=== PATIENT | male | born 1950 | race Caucasian/White ===

== ENCOUNTER → 2019-07-11 | Outpatient (CLI) | payer OTHER ==
[~2019-07-11] MED LIST: ASPIR 8181 MG PO; CELEXA10 MG PO; EFFIENT10 MG PO; LISINOPRIL20 MG PO; LIVALO1 MG PO; LIVALO2 MG PO; PLAVIX 75 MG TA75 M1 PO
[2019-07-11 07:39] LABS: CALCIUM 9.5 mg/dL (8.5-10.1); CREATININE 1.1 mg/dL (0.7-1.3)
== END ==
LOC: CAT 06:42
PROVIDERS: Internal Medicine
DX: I71.3 Abdominal aortic aneurysm, ruptured (principal); M47.816 Spondylosis without myelopathy or radiculopathy, lumbar region; K57.30 Diverticulosis of large intestine without perforation or abscess without bleeding; K55.1 Chronic vascular disorders of intestine; N40.0 Benign prostatic hyperplasia without lower urinary tract symptoms; I77.1 Stricture of artery

== ENCOUNTER → 2019-08-14 | Outpatient (CLI) | payer OTHER ==
[~2019-08-14] VITALS: Ht 172.7 cm; Wt 88.9 kg
[~2019-08-14] MED LIST changes: +ASA81BEC PO; +CELEXA 20 MG TA20 MG PO; +CO Q-10300 MG PO; +COENZYME Q-10200 MG PO; +LISINOPRIL-HCT1 EAC2 PO; +PLAVIX 75 MG TA75 MG PO; +REPATHA SU140 MG/1 M INJECTION
[2019-08-14 07:29] VITALS: BP 129/72
[2019-08-14 07:39] LABS: HEMATOCRIT 48.3 % (42.0-52.0); HEMOGLOBIN 15.9 gm/dL (14.0-18.0); MCH 31.4 pg (26.0-34.0); RBC 5.08 mil/uL (4.50-6.00); WBC 9.3 thou/uL (4.0-11.0)
[2019-08-14 07:53] LABS: CALCIUM 8.8 mg/dL (8.5-10.1); POTASSIUM 3.8 mmol/L (3.5-5.1)
--- NOTE | 2019-08-14 08:25 | EKG ---
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: Stephany OLWE : 1950 Requested By: Mike Ventura Order Number: [id number] MD: Bernabe Holden Measurements Intervals [place] Rate: 52 P: 46 MS: 146 QRS: -10 QRSD: 114 T: 12 QT: 448 QTc: 417 Interpretive Statements Sinus bradycardia Borderline intraventricular conduction delay Compared to ECG 10/20/2014 06:38:31 No significant change was found Electronically Signed On 08-14-2019 8:25:11 BUS AND RAIL OPERATOR by Bernabe Holden [email or web address] <ELECTRONICALLY SIGNED> By: Bernabe Holden MD, [facility] 08/14/19824 3 3 Bernabe Holden MD, FACC /EPI
== END | disposition home or self-care (01) ==
LOC: CATH 06:58
PROVIDERS: Nuclear Medicine Nuclear Cardiology
DX: I71.4 Abdominal aortic aneurysm, without rupture (principal); I70.1 Atherosclerosis of renal artery; I10 Essential (primary) hypertension; I25.10 Atherosclerotic heart disease of native coronary artery without angina pectoris; E78.00 Pure hypercholesterolemia, unspecified; I73.9 Peripheral vascular disease, unspecified; E78.5 Hyperlipidemia, unspecified; F17.210 Nicotine dependence, cigarettes, uncomplicated; Z98.890 Other specified postprocedural states; Z79.899 Other long term (current) drug therapy; Z79.82 Long term (current) use of aspirin

== ENCOUNTER 2019-08-28 05:59 | Inpatient (IN) | payer OTHER ==
[2019-08-24 14:15] LABS: ABSOLUTE NEUTROPHILS 5.8 thou/uL (1.4-8.2); BASOPHILS 0.8 % (0.0-2.0); EOSINOPHILS 1.7 % (0.0-3.0); HEMATOCRIT 49.6 % (42.0-52.0); HEMOGLOBIN 16.6 gm/dL (14.0-18.0); MCH 31.4 pg (26.0-34.0); MCHC 33.4 g/dL (28.0-37.0); PLATELET COUNT 280 thou/uL (150-400); POLYS 61.5 % (36.0-66.0); RBC 5.28 mil/uL (4.50-6.00); RDW 13.7 % (10.5-14.5); WBC 9.4 thou/uL (4.0-11.0)
[2019-08-24 14:16] LABS: URINE BILIRUBIN NEGATIVE (Negative); URINE BLOOD TRACE (Negative); URINE CLARITY CLEAR; URINE COLOR YELLOW; URINE GLUCOSE-RANDOM* NEGATIVE (Negative); URINE KETONES NEGATIVE (Negative); URINE LEUKOCYTES-REFLEX NEGATIVE (Negative); URINE NITRITE-REFLEX NEGATIVE (Negative); URINE PROTEIN (DIPSTICK) NEGATIVE (Negative); URINE SPECIFIC GRAVITY 1.015 (1.005-1.035); URINE UROBILINOGEN 0.2 E.U./dl (0.2-1.0)
[2019-08-24 14:28] LABS: ALBUMIN 3.5 g/dL (3.4-5.0); CALCIUM 9.4 mg/dL (8.5-10.1); CREATININE 1.4 mg/dL (0.7-1.3); POTASSIUM 4.3 mmol/L (3.5-5.1); TOTAL BILIRUBIN 0.3 mg/dL (<0.1-1.0); TOTAL PROTEIN 7.1 g/dL (6.4-8.2)
[2019-08-24 14:30] LABS: APTT 30.6 Seconds (24.5-32.8); PROTIME 9.8 Seconds (9.3-11.4)
[2019-08-28] VITALS (21 sets, daily range): BP systolic 93–124; BP diastolic 46–77
[~2019-08-28] VITALS: Ht 172.7 cm; Wt 90.3 kg
[~2019-08-28 05:59] MED LIST changes: -ASA81BEC PO
--- NOTE | 2019-08-28 14:00 | NUR ---
Patient admitted to ICU room 246 fro PACU at 1340 post Stent graft implanted for aortic aneurysm and L renal artery stent placement. Bilateral groin sites are soft, no hematoma noted. Attached to monitors. Cardene infusing.
--- NOTE | 2019-08-28 18:00 | NUR ---
Patient progressing towards outcome goals as evident by, feet are warm with cap refill less than 3 seconds, and good sensation. BP remains less than 140 systolic via [place]. Bilateral groin sites remain soft to palpation. Tolerating diet without nausea or emesis. Pain controlled with pain management regime. Romano dc'd but has not voided. Patient and updated as to POC and given reassurance.
--- NOTE | 2019-08-28 22:35 | NUR ---
PATIENT UNABLE TO VOID POST-CATHETER REMOVAL, PATIENT BLADDER SCANNED [address] MEDEL NOTIFIED, NEW ORDERS NOTED.
[2019-08-29] VITALS (9 sets, daily range): BP systolic 103–126; BP diastolic 46–75
[2019-08-29 05:50] LABS: HEMATOCRIT 39.8 % (42.0-52.0); HEMOGLOBIN 13.1 gm/dL (14.0-18.0); MCH 30.7 pg (26.0-34.0); MCHC 32.8 g/dL (28.0-37.0); MCV 93.6 fL (80.0-100.0); RBC 4.26 mil/uL (4.50-6.00); RDW 13.8 % (10.5-14.5); WBC 17.5 thou/uL (4.0-11.0)
[2019-08-29 06:00] LABS: CALCIUM 8.7 mg/dL (8.5-10.1); POTASSIUM 3.6 mmol/L (3.5-5.1)
--- NOTE | 2019-08-29 07:15 | NUR ---
PATIENT ALERT AND ORIENTED X4, PAIN CONTROLLED WITH MEDICATION. OXYGEN WEANED OFF, O2 REMAINED ABOVE 92. RIGHT RADIAL ART LINE INTACT. ABRAMS DISCONTINUED YESTERDAY, PATIENT VOIDING WELL. PATIENT AMBULATED IN ROOM WITH STANDBY ASSISTANCE, NO DISCOMFORT NOTED. CURRENTLY RESTING IN CHAIR, NO SIGNS OF ACUTE DISTRESS NOTED AT THIS TIME. WILL CONTINUE TO MONITOR.
--- NOTE | 2019-08-29 12:12 | NUR ---
PATIENT UP IN THE CHAIR THIS AM, STANDING UP INTERMITTENTLY TO STREACH HIS BACK AND HIPS. MOMO REMOVED NO HEMATOMA NOTED. VOIDING WITHOUT DIFFICULTY. AMBULATED IN THE HALLS WITHOUT DIFFICULTY, STEADY GAIT. AT BEDSIDE, AWAITING DISCHARGE.
[2019-08-29] MEDS ORDERED: ASA81BEC PO (12:37)
--- NOTE | 2019-08-29 14:05 | NUR ---
PATIENT DISCHARGED TO HOME WITH VIA CAR, DISCHARGE INSTRUCTIONS REVIEWED WITH PATIENT AND , QUESTIONS ANSWERED, VERBALIZED UNDERSTANDING.
--- NOTE | 2019-08-30 17:06 | PATH ---
[facility] [address] [place] [address] PATHOLOGY RPT PROCEDURE Name: DAYNE KNIGHT Room #: 246-P [facility] IN M.R.#: [id number] Admission: 08/28/19 Date of : 54 Discharge: 08/29/19 Report #: [id number] Path Case #: [id number] [facility] Accession Number: [id number] . 01 Material submitted: . artery - LEFT FEMORAL ARTERY PLAQUE. Modifiers: left, femoral . 01 Clinical history: . Abdominal aortic aneurysm . 02 Diagnosis: Left femoral artery plaque, removal: - Calcific atherosclerotic fragments compatible with plaque. (IUV/db; 08/30/2019) LBQ 08/30/2019 1519 Local . 02 Electronically signed: . Melinda Sheets MD, Pathologist NPI- [id number] . 01 Gross description: . The specimen is received in formalin, labeled "Dayne Knight, left femoral artery plaque". Received are multiple segments of partially calcified pale nelson tissue measuring 3.2 x 2.1 x 0.7 cm in aggregate dimensions. The specimen is submitted representatively in cassette A1, following light decalcification. (CAA; 08/29/2019) QA/[facility] 08/29/2019 0913 Local . 02 Pathologist provided ICD-10: I70.202 . 02 CPT . 690950 Specimen Comment: A courtesy copy of this report has been sent to [phone] Specimen Comment: [phone], Specimen Comment: Report sent to , and Performed at: [address], [place] [id number] MD Kristian Chatman MD Phone: [phone] Performed at: [address] [id number] MD Melinda Sheets MD Phone: [phone]
--- NOTE | 2019-09-03 07:36 | O ---
[facility] [place] [address] OPERATIVE REPORT Name: OLIVIA RICHMOND Room #: 246-P [facility] IN M.R.#: [id number] Admission: 08/28/19 Attend Phys: Simba Gramajo MD Discharge: 08/29/19 Date of : 54 Report #: [id number] THIS REPORT FOR: //name// CC: Simba Alvarenga DATE OF SERVICE: 08/28/2019 PREOPERATIVE DIAGNOSIS: Abdominal aortic aneurysm. POSTOPERATIVE DIAGNOSIS: Abdominal aortic aneurysm. OPERATION: Stent graft implant with appropriate arteriography and stent implant for left renal artery and left femoral endarterectomy with patch closure. SURGEON: Simba Gramajo MD and Mike Ventura MD BARBER: NICO Martinez. ANESTHESIA: General. INDICATIONS: The patient is a 69-year-old with abdominal aortic aneurysm. The patient has been followed for some time and aneurysm is of size to indicate repair. FINDINGS AND TECHNIQUE: After general anesthesia was established, femoral arteries were exposed on each side. Both femoral arteries were slightly aneurysmal left more so than the right. A 10,000 units of heparin were given on each side, the femoral artery was entered with the Amplatz needle followed by guidewire and 6-Montenegrin sheath. Through the sheath, the long J-wire was placed and over that, the Berenstein catheter was used as an exchange to place the stiff wires. Over the stiff wire, the introducers were placed through femoral cut downs. On the left side, a 12-Montenegrin cut down was performed and on the right side, 16-Montenegrin. Once the introducer was in place through the left side, the visceral catheter was used to identify the lowest, right, renal artery and this was used as our guide for placement. The main body was a 24 x 14 x 16 device and this was placed in good position below the right renal artery. The contralateral limb was deployed and this was cannulated. Good position with the cannula was ascertained using the spin technique with the pigtail catheter. Flush arteriogram was done on the left side and with this information, a 14 x 12 [facility] [address] [place] [address] OPERATIVE REPORT Name: OLIVIA RICHMOND Room #: 246-P [facility] IN M.R.#: [id number] Admission: 08/28/19 Attend Phys: Simba Gramajo MD Discharge: 08/29/19 Date of : 54 Report #: [id number] second component was selected. This was placed to land just above the left hypogastric artery. With the grafts in position, the compliant balloon was used to fully distend all components, particularly at the neck and at the contralateral limb. The balloon was placed in both sides. An arteriogram was done to show good position of the graft. Unfortunately, there appeared to be a small type 1 endoleak. With this information, a decision was made to place an aortic cuff. A 26 aortic cuff was placed to land just below the left renal artery. The cuff landed in such a way to slightly block the left renal artery and decision was made to pass balloon to dilate the orifice and then a short stent was used to stent the left renal artery and this was over distended using a 6 mm balloon. A final arteriogram was taken that showed good position of the abdominal aneurysm component with no evidence of endoleak and good flow into the left renal artery. Satisfied with all of our devices, the dilators were replaced in the sheaths. The sheaths and dilators were removed and then the stiff wire was removed. On the right side, femoral artery was repaired with interrupted Prolene. On the left side, the slightly more aneurysmal femoral artery was full of clot. I was not comfortable blindly closing this vessel and therefore dissection was done to get a bit more length, both proximally and distally and a longitudinal incision was made and a limited femoral endarterectomy was performed. Tacking sutures were placed distally and then the arteriotomy was closed with a thin walled pericardial patch. The artery was flushed with heparinized saline. Flow was reestablished and the Doppler was used to interrogate and this showed good flow. Protamine was given to reverse the heparin. Hemostasis was ascertained in all areas. The wounds were closed in layers. The patient was taken to the recovery area in good condition with palpable dorsalis pedis pulses. All counts reported as correct. <ELECTRONICALLY SIGNED> By: Simba Gramajo MD 09/03/19 0736 1025 1043 Simba Gramajo MD /nt
== END 2019-08-29 14:08 | disposition home or self-care (01) | DRG 269 ==
LOC: TBA 05:59 → ICU 05:59 → OR 11:01 → EDSTATUS 11:03 → PRE 11:05 → OR 12:22 → PRE 12:48 → ICU 13:38 → ENTRNSPT 08-29 13:55 → ICU 08-29 14:08
PROVIDERS: Physician Assistant; ADMIT Surgery Vascular Surgery
PROC: B41D1ZZ Fluoroscopy of Aorta and Bilateral Lower Extremity Arteries using Low Osmolar Contrast (ICD-10-PCS; principal; 2019-08-28)
PROC: B4171ZZ Fluoroscopy of Left Renal Artery using Low Osmolar Contrast (ICD-10-PCS; principal; 2019-08-28)
PROC: 04CL3ZZ Extirpation of Matter from Left Femoral Artery, Percutaneous Approach (ICD-10-PCS; principal; 2019-08-28)
PROC: 047A3DZ Dilation of Left Renal Artery with Intraluminal Device, Percutaneous Approach (ICD-10-PCS; principal; 2019-08-28)
PROC: 04V03DZ Restriction of Abdominal Aorta with Intraluminal Device, Percutaneous Approach (ICD-10-PCS; principal; 2019-08-28)
PROC: 04UL3JZ Supplement Left Femoral Artery with Synthetic Substitute, Percutaneous Approach (ICD-10-PCS; 2019-08-28)
DX: I71.4 Abdominal aortic aneurysm, without rupture (principal); I25.10 Atherosclerotic heart disease of native coronary artery without angina pectoris; I72.2 Aneurysm of renal artery; I10 Essential (primary) hypertension; E78.5 Hyperlipidemia, unspecified; I73.9 Peripheral vascular disease, unspecified; F17.210 Nicotine dependence, cigarettes, uncomplicated; Z79.82 Long term (current) use of aspirin; Z79.899 Other long term (current) drug therapy
CPT/HCPCS: 10078; 47375; 48888; 50010; 50101; 50386; 50455; 51078; 51751; 52279; 54118; 56524; 56526; 56531; 56534; 56668; 56760; 57093; 62110; 62900; 70005

== ENCOUNTER 2019-09-11 14:32 | Inpatient (IN) | payer OTHER ==
[~2019-09-11] VITALS: Ht 172.7 cm; Wt 84.8 kg
[~2019-09-11 14:32] MED LIST changes: +ASA81BEC PO
[2019-09-11 14:39] VITALS: BP 90/57
[2019-09-11 16:16] LABS: HEMATOCRIT 41.8 % (42.0-52.0); HEMOGLOBIN 13.9 gm/dL (14.0-18.0); MCH 30.7 pg (26.0-34.0); MCHC 33.1 g/dL (28.0-37.0); MCV 92.6 fL (80.0-100.0); RBC 4.52 mil/uL (4.50-6.00); RDW 13.8 % (10.5-14.5); WBC 19.5 thou/uL (4.0-11.0)
[2019-09-11 16:19] LABS: CALCIUM 9.6 mg/dL (8.5-10.1); CREATININE 1.3 mg/dL (0.7-1.3); POTASSIUM 3.7 mmol/L (3.5-5.1)
[2019-09-11 16:31] LABS: APTT 31.6 Seconds (24.5-32.8)
[2019-09-11 21:31] LABS: HEMATOCRIT 34.6 % (42.0-52.0); MCH 30.5 pg (26.0-34.0); MCHC 32.2 g/dL (28.0-37.0); MCV 94.8 fL (80.0-100.0); RBC 3.65 mil/uL (4.50-6.00); RDW 13.8 % (10.5-14.5); WBC 25.2 thou/uL (4.0-11.0)
[2019-09-11 21:32] LABS: HEMOGLOBIN 11.2 gm/dL (14.0-18.0)
[2019-09-11 23:10] LABS: HEMATOCRIT 37.3 % (42.0-52.0); HEMOGLOBIN 12.1 gm/dL (14.0-18.0); MCH 30.7 pg (26.0-34.0); MCHC 32.5 g/dL (28.0-37.0); MCV 94.6 fL (80.0-100.0); RBC 3.94 mil/uL (4.50-6.00); RDW 14.1 % (10.5-14.5); WBC 39.6 thou/uL (4.0-11.0)
[2019-09-11 23:21] LABS: CALCIUM 9.5 mg/dL (8.5-10.1); CREATININE 1.9 mg/dL (0.7-1.3); POTASSIUM 4.3 mmol/L (3.5-5.1)
[2019-09-11 23:45] LABS: APTT 27.5 Seconds (24.5-32.8); FIBRINOGEN 386.4 mg/dL (210-360); INR 1.1; PROTIME 10.8 Seconds (9.3-11.4)
[2019-09-12] VITALS (20 sets, daily range): BP systolic 89–153; BP diastolic 43–85
--- NOTE | 2019-09-12 04:14 | NUR ---
Pt c/o CP. He described as chest pressure. Denies of any radiation to any part of his body. Denies of any SOB. He appears to be very anxious during this episode. EKG obtained and showing no s/sx of any RI. Assist him with relaxation technique. at bedside. Notified his nurse regarding of above.
--- NOTE | 2019-09-12 04:14 | NUR ---
Pt c/o mid chest pain. It is associated with anxiety. He described as chest pressure and rate his pain at 3. He denies of any SOA,no radiation, VS and rhythm are stable. EKG obtained ,showing no STEMI. He reported feeling very anxious. Assisting him with relaxation technique. at bedside providing emotional supports. Notified his nurse about my actions regarding of above.
[2019-09-12 05:19] LABS: HEMATOCRIT 33.8 % (42.0-52.0); HEMOGLOBIN 11.2 gm/dL (14.0-18.0); MCH 30.7 pg (26.0-34.0); MCHC 33.2 g/dL (28.0-37.0); MCV 92.4 fL (80.0-100.0); PLATELET COUNT 298 thou/uL (150-400); RBC 3.65 mil/uL (4.50-6.00); RDW 13.8 % (10.5-14.5); WBC 24.8 thou/uL (4.0-11.0)
[2019-09-12 05:34] LABS: CALCIUM 8.4 mg/dL (8.5-10.1); CREATININE 1.7 mg/dL (0.7-1.3); MAGNESIUM 1.7 mg/dL (1.8-2.4); POTASSIUM 3.5 mmol/L (3.5-5.1)
--- NOTE | 2019-09-12 06:00 | NUR ---
PT ARRIVED IN ICU FROM OR AT 0050 THIS MORNING. UPON ARRIVAL, PT DIAPHORETIC AND NAUSEOUS. WAS INFORMED BY COOLER DELIVERER THAT PT WAS JUST GIVEN ZOFRAN. PT C/O OF PAIN IN BACK FROM LYING FLAT ON BACK, AND C/O OF PAIN IN GROIN LATER THIS MORNING. PT GIVEN PAIN MEDICATION AND HAD RELIEF OF PAIN. PT REMAINED NAUSEOUS. ZOFRAN GIVEN AGAIN THIS MORNING, BUT PT REPORTED THAT IT DID NOT HELP HIS NAUSEA. PT ALSO FELT PRESSURE ON HIS BOWELS ALL MORNING AND FREQUENTLY SAT ON THE BEDPAN BUT ONLY HAD A SMALL AMOUNT OF LOOSE STOOLS; PT THINKS HE WILL HAVE MORE SUCCESS SITTING ON A COMMODE. PT BECAME INCREASINGLY ANXIOUS OVER THE COURSE OF THE MORNING AND PT'S BP INCREASED. PAIN MEDICATION WAS GIVEN THAT HELPED RELAX PT SOMEWHAT, BUT BP REMAINED ELEVATED SO CARDENE GTT WAS INITIATED. TWO UNITS OF PLATELETS WERE GIVEN THIS MORNING AND HGB WAS 11.2 THIS MORNING. WILL CONTINUE TO MONITOR.
[2019-09-12 10:13] LABS: ABSOLUTE NEUTROPHILS 22.1 thou/uL (1.4-8.2)
[2019-09-12 10:14] LABS: ANISOCYTOSIS SLIGHT
--- NOTE | 2019-09-12 10:31 | NUR ---
CM ASSESSMENT: CASE OPENED FOR DC PLANNING. CLINICAL INFO REVIEWED. PT IS POD #1 EMERGENCY PSEUDOANEURYSM REPAIR WITH INTERPOSITION GRAFT. PT HAD AAA REPAIR 08/28. PT UP IN CHAIR, ALERT AND ORIENTED X4, SPOUSE AT BEDSIDE. PT IS ALERT ADN ORIENTED. STATES HE IS RETIRED, INDEPENDENT WITH ADLS, USES NO DME AND NO PREVIOUS HH. HAS PCP DR. MAYS. DISCUSSED WITH RAVIN CANO CTS PA THIS AM. ANTICIPATE NO DC NEEDS, BUT ABLE TO ASSIST WITH COORDINATION IF ANY DC NEEDS ARISE.
--- NOTE | 2019-09-12 13:18 | NUR ---
ASSUMED CARE @ 0700 09/12/19, PT ASSESSMENTS AND VSS COMPLETE PER ICU PROTOCOL. PT UP TO THE BEDSIDE COMMODE X 3, THE THIRD TIME UP TO THE BEDSIDE COMMODE, HIS HR WAS IN THE 130'S, SBP IN 150-170, PT HELPED BACK TO BED, HR STILL IN THE 110'S SUSTAINED, SBP 130-150, LOOKING AT TREND HR WAS 60-80 FOR 24 HRS, RAVIN CALLED, NEW ORDERS RECIEVED.
--- NOTE | 2019-09-12 20:20 | NUR ---
Pt care assumed at 1915. Pt restless, c/o of feeling he has too much "fluid" in his stomach. Has been up and down to BSC and on bedpan numerous times today for same c/o. Nurse practioner notified and Reglan IVP ordered q 6 hours. First dose given. Pt moving left arm and dislodged left radial a-line. A-line dc'd at 2000, pressure held x 5 minutes till hemostatsis obtained and small pressure drsg applied.
[2019-09-13] VITALS (15 sets, daily range): BP systolic 109–146; BP diastolic 59–86
[2019-09-13 05:38] LABS: HEMATOCRIT 27.6 % (42.0-52.0); MCH 31.2 pg (26.0-34.0); MCHC 33.4 g/dL (28.0-37.0); MCV 93.4 fL (80.0-100.0); RBC 2.96 mil/uL (4.50-6.00); RDW 13.6 % (10.5-14.5); WBC 22.6 thou/uL (4.0-11.0)
[2019-09-13 05:47] LABS: HEMOGLOBIN 9.2 gm/dL (14.0-18.0)
[2019-09-13 05:50] LABS: MAGNESIUM 1.7 mg/dL (1.8-2.4); POTASSIUM 3.2 mmol/L (3.5-5.1)
[2019-09-13 06:37] LABS: URINE BILIRUBIN NEGATIVE (Negative); URINE BLOOD 2+ (Negative); URINE CLARITY CLEAR; URINE COLOR YELLOW; URINE GLUCOSE-RANDOM* NEGATIVE (Negative); URINE KETONES NEGATIVE (Negative); URINE LEUKOCYTES-REFLEX NEGATIVE (Negative); URINE NITRITE-REFLEX NEGATIVE (Negative); URINE PROTEIN (DIPSTICK) 1+ (Negative); URINE SPECIFIC GRAVITY 1.025 (1.005-1.035); URINE UROBILINOGEN 0.2 E.U./dl (0.2-1.0)
[2019-09-13 06:44] LABS: CASTS None Seen /LPF (None Seen); SQUAMOUS None Seen /LPF (0-3); URINE RBC 0-2 Rare /HPF (0-2)
[2019-09-13 06:45] LABS: AMORPHOUS URATES Moderate /LPF (None Seen); BACTERIA-REFLEX 1-9 Few /HPF (None Seen); URINE WBC-REFLEX 0-5 Rare /HPF (0-5)
--- NOTE | 2019-09-13 07:07 | NUR ---
Pt rested well during night. No further c/o of gastric distress after receiving Reglan IVP. c/o of lower back pain due to bed mattress this a.m. Assisted up to chair for approximately 20 minutes then wanted back to bed. Hydrocodone 1 tab given with adequate pain relief achieved.
--- NOTE | 2019-09-13 10:34 | O ---
[facility] [place] [address] OPERATIVE REPORT Name: OLIVIA RICHMOND Room #: 245-P [facility] IN ..#: [id number] Admission: 09/11/19 Attend Phys: Cong Zamora MD Discharge: Date of : 54 Report #: [id number] THIS REPORT FOR: //name// CC: Cong Alvarenga DATE OF SERVICE: 09/11/2019 PREOPERATIVE DIAGNOSIS: Left femoral artery pseudoaneurysm. POSTOPERATIVE DIAGNOSIS: Left femoral artery pseudoaneurysm. OPERATION: Emergency repair of left femoral artery pseudoaneurysm. SURGEON: Simba Gramajo MD MANAGER SALES AND MARKETING: NICO Martinez ANESTHESIA: General. INDICATIONS: The patient is a 69-year-old who approximately one week ago, had a stent graft implant. Unfortunately, the patient developed a pseudoaneurysm over the weekend. The patient states that he felt a rupture in his groin and this was followed by a large painful swelling. When seen in the Emergency Department, the patient had an obvious pulsatile pseudoaneurysm and this was confirmed by Radiology. FINDINGS AND TECHNIQUE: After general anesthesia was established, an incision was made into the old groin incision and the pseudoaneurysm was entered. Unfortunately, the leak in the artery was much larger than anticipated. The patient previously had stent graft implant but because of severe calcification and femoral aneurysm. I had performed an endarterectomy with localized patch graft. The patch had become disrupted and along the superior lateral edge and this would require a more extensive repair. Direct vascular control was maintained while a counter incision was made above the inguinal ligament. This allowed proximal control of the most distal external iliac artery. The wound was then opened and the superficial femoral artery was exposed and controlled. Attempts were made to expose and control the deep femoral artery, but there was intense scarring related to, I am sure, the aneurysm as well as previous surgery and control of this was obtained with insertion of Fogerty catheters. Once vascular control was obtained, was difficult as it was, a decision was made to place an interposition graft, length of 8 mm Hemashield was selected and [facility] [address] [place] [address] OPERATIVE REPORT Name: OLIVIA RICHMOND Room #: 245-P [facility] IN .R.#: [id number] Admission: 09/11/19 Attend Phys: Cong Zamora MD Discharge: Date of : 54 Report #: [id number] bevelled end-to-end anastomosis was made proximally. The distal end of this was then sewn to include the origin of the deep femoral artery. Before placing the graft distally, a femoral thrombectomy was performed using Katy catheter to remove all clot from the superficial femoral artery. Localized heparin was given into this and systemic heparin had been given when vascular control was obtained. There was good back bleeding from the deep femoral artery, but relatively little from the superficial femoral artery. I felt with several passages of two sizes, a Katy catheter that I had removed most of the clot that was obtainable. When the distal anastomosis was complete, flow was reestablished. Hemostasis was ascertained at both anastomotic sites and when we were satisfied with the graft, then protamine was given to reverse the heparin. The patient was on Plavix and aspirin and there was considerable amount of soft tissue bleeding. This was tedious to address but when hemostasis was satisfactory, a 15 Rafael drain was brought through a separate stab wound and the wound was closed in layers. A wound VAC was applied to the wound externally and to be converted to a Prevena at the time of discharge. The patient tolerated all this well. Cell Saver was used during the operation. A good Doppler signal was obtainable in the feet prior to leaving the operating room and both feet were pink. Femoral pulse was 2+ on the right and 1+ on the left. All counts were reported as correct. <ELECTRONICALLY SIGNED> By: Simba Gramajo MD 09/13/19 1034 1041 1058 Simba Gramajo MD /nt
--- NOTE | 2019-09-13 12:02 | NUR ---
PATIENT ALERT AND ORIENTED, VITALS STABLE, C/O TENDERNESS LEFT GROIN WITH PALPATION. UP TO THE BATHROOM AND SAT IN THE CHAIR FOR A WHILE. TOLERATING DIET W/O NAUSEA. WOUND VAC AND GLENDA DRAIN LEFT GROIN AND DRESSING INTACT. ABRAMS DC'D AND PATIENT ABLE TO VOID. ORDERS RECEIVED TO TRANSFER OUT OF ICU.
--- NOTE | 2019-09-13 15:12 | NUR ---
PATIENT TRANSFERRE TO 207 WITH BELONGINGS, ACCOMPANIED BY SPOUSE.
--- NOTE | 2019-09-13 17:16 | NUR ---
PT CARE ASSUMED APPROX 1515. ASSESSMENT CHARTED. PT DENIES SOA AND PAIN TO LEFT GROIN AT THIS TIME. PT REPORTS PAIN 7/10 TO LOWER BACK. REPORTS ADEQUATE PAIN MANAGEMENT. AT BEDSIDE AND BOTH SHE AND PT DENY DENY QUESTIONS OR CONCERNS REGARDING POC OR TRANSFER. VSS. BS WNL. FALL PRECAUTIONS IN PLACE. NO DISTRESS NOTED.
--- NOTE | 2019-09-14 04:21 | NUR ---
pt alert and oriented. Vitals stable. reports of left groin soreness on palpitation. Wound VACC and GLENDA drain intact. Voiding b urinal. at bedside during yeaterday shift change but denies any concerns. Denies chest pain, no nausea / vomiting reported. pt currently stable. no distress reported. Will continue with current POC.
[2019-09-14 04:30] VITALS: BP 112/69
[2019-09-14 05:19] LABS: ABSOLUTE NEUTROPHILS 14.4 thou/uL (1.4-8.2); BASOPHILS 0.3 % (0.0-2.0); EOSINOPHILS 0.1 % (0.0-3.0); HEMATOCRIT 26.1 % (42.0-52.0); HEMOGLOBIN 8.7 gm/dL (14.0-18.0); LYMPHOCYTES 9.5 % (24.0-44.0); MCHC 33.3 g/dL (28.0-37.0); MCV 92.9 fL (80.0-100.0); MONOCYTES 10.7 % (1.0-8.0); PLATELET COUNT 241 thou/uL (150-400); POLYS 79.4 % (36.0-66.0); RBC 2.81 mil/uL (4.50-6.00); RDW 13.4 % (10.5-14.5); WBC 18.1 thou/uL (4.0-11.0)
[2019-09-14 05:38] LABS: CALCIUM 8.2 mg/dL (8.5-10.1); CREATININE 0.9 mg/dL (0.7-1.3)
[2019-09-14 05:42] LABS: POTASSIUM 2.9 mmol/L (3.5-5.1)
[2019-09-14 07:20] VITALS: BP 128/68
--- NOTE | 2019-09-14 08:31 | NUR ---
ASSUMED CARE OF PT APPOX 0715, NIGHT STAFF STATES PT VERY TIRED. AMB THIS A.M. WITH ASSIST W/SUPPLIES. BM THIS A.M. AND EARLIER IN SHIFT. EVERYTHING INTACT, WOUND VAC, SWELLING LEFT GROIN SCROTUM/DISCOLORATION. OFFERED ICE PACK, DECLINED AT THIS TIME, WANTS TO NAP. SEE SEPARATE INTERVENTIONS FOR ASSESSMENTS, ENCOURAGED PT TO USE CALL LIGHT FOR ANY NEES
[2019-09-14 11:49] VITALS: BP 106/54
[2019-09-14 12:34] LABS: CHOLESTEROL 88 mg/dL (<200); HDL CHOLESTEROL 29 mg/dL (>40); LDL CHOLESTEROL 40 mg/dL (<100); TRIGLYCERIDE 99 mg/dL (<150); VLDL 20 mg/dL (<40)
[2019-09-14 18:19] VITALS: BP 111/58
[2019-09-14 21:02] VITALS: BP 113/60
[2019-09-15 00:33] VITALS: BP 107/56
[2019-09-15 03:25] LABS: HEMATOCRIT 26.1 % (42.0-52.0); HEMOGLOBIN 8.6 gm/dL (14.0-18.0); MCH 30.7 pg (26.0-34.0); RBC 2.81 mil/uL (4.50-6.00); RDW 13.5 % (10.5-14.5); WBC 13.8 thou/uL (4.0-11.0)
[2019-09-15 03:37] LABS: CALCIUM 8.7 mg/dL (8.5-10.1); MAGNESIUM 1.9 mg/dL (1.8-2.4); POTASSIUM 3.4 mmol/L (3.5-5.1)
[2019-09-15 05:05] VITALS: BP 111/60
--- NOTE | 2019-09-15 07:29 | NUR ---
PROGRESS PT A/O X4, UP WITH SBA FOR EQUIPMENT. AMBULATED TO BATHROOM WOUND VAC INTACT RUNNING AT 125 CM SX, GLENDA INTACT DRAINED 50 CC OF DARK BLOODY FLUID. PEDAL PULSES POSITIVE, SENSATION AND MOVEMENT INTACT. VSS, ACCUCHECKS AND SSI INSULIN CONTINUE 93 LAST NIGHT NO SSI REQUIRED. L AND R FOREARM SL FLUSHES WITHOUT DIFFICULTY. LUNGS CLEAR ABDOMEN SOFT WITH ACTIVE BS CONTINUE POC.
[2019-09-15 07:30] VITALS: BP 138/68
[2019-09-15 11:15] VITALS: BP 120/61
--- NOTE | 2019-09-15 14:05 | NUR ---
Case discussed with the care team. No cm interventions indicated at this time. Discharge timeframe is uncertain. CTS and GI are involved.
--- NOTE | 2019-09-15 14:51 | EKG ---
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 Manager: KRISHAN : 1950 Requested By: Nick Pardo Order Number: [id number] MD: Fantasma Curtis Measurements Intervals [place] Rate: 60 P: 44 ME: 144 QRS: -12 QRSD: 111 T: 7 QT: 424 QTc: 424 Interpretive Statements Sinus rhythm Abnormal R-wave progression, early transition Borderline T abnormalities, inferior leads Compared to ECG 08/14/2019 07:24:35 T-wave abnormality now present Sinus bradycardia no longer present Electronically Signed On 09-15-2019 14:50:59 CLINIC COORDINATOR by Fantasma Curtis [email or web address] <ELECTRONICALLY SIGNED> By: Fantasma Curtis MD 09/15/19 1450 20 20 Fantasma Curtis MD /EPI
--- NOTE | 2019-09-15 14:52 | EKG ---
[address] [address] ELECTROCARDIOGRAM REPORT Name: OLIVIA RICHMOND Room #: 207-P [facility] IN M.R.#: [id number] Admission: 09/11/19 Attend Phys: Cong Zamora MD Discharge: Date of : 54 Report #: [id number] THIS REPORT FOR: //name// [facility] Test Date: 2019-09-12 Test Time: 04:08:02 Pat Name: OLIVIA RICHMOND Department: Room: 207 Gender: M Director Pharmacy Services: raimundo : 1950 Requested By: Cogn Zamora Order Number: [id number] MD: Fantasma Curtis Measurements Intervals [place] Rate: 72 P: 62 IA: 142 QRS: 5 QRSD: 111 T: 22 QT: 399 QTc: 437 Interpretive Statements Sinus arrhythmia Abnormal R-wave progression, early transition Compared to ECG 08/14/2019 07:24:35 Sinus bradycardia no longer present Electronically Signed On 09-15-2019 14:51:45 CREASING MACHINE OPERATOR by Fantasma Curtis [email or web address] <ELECTRONICALLY SIGNED> By: Fantasma Curtis MD 09/15/19 1451 0408 0408 Fantasma Curtis MD /CLARA
[2019-09-15 15:30] VITALS: BP 106/55
--- NOTE | 2019-09-15 18:23 | NUR ---
ASSUMMED PT CARE AT APPROXIMATELY 0700. PT A&O X4. ASSESSMENT CHARTED. FALL PRECAUTIONS IN PLACE. PT DENIES HAVING CHEST PAIN. PT DENIES HAVING SOB. PT STATED HE HAD CHRONIC BACK PAIN. PT RECEIVED ANALGESICS. PT STATED ANALGESICS HELPED RELEIVE PAIN. PT STATED HE WAS HAVING DIFFICULTY HAVING BM. DURING ASSESMENT, I OBSERVED THAT PT'S ABDOMEN IS DISTENDED. NOTIFIED NICO ALICIA THAT PT'S WAS WEAK WHEN AMBULATING, AND THAT IS ABDOMEN IS DISTENDED. PA IMPLEMENTED NEW ORDERS. RESULTS SHOWED PT HAS AN ILEUS. PA ORDERED NEW ORDERS. IMPLEMENTED NEW ORDERS. DR. MEDEL STATED HE DID NOT WANT TO PROGRESS C INSERTING NG TUBE DUE TO PT'S NOSE STARTING TO BLEED. DR. MEDEL STATED TO "HOLD OFF" ON STARTING THE NG TUBE. DR. MEDEL STATED TO ORDER NEW NG TUBES IF NEEDED TO INSERT AT A DIFFERENT TIME. NG TUBES WERE ORDERED AND THEY ARE ON THE UNIT. PT AND PT'S FAMILY EDUCATED ABOUT POC. PT AND PT'S FAMILY STATED UNDERSTANDING AND DENIED HAVING FURTHER QUESTIONS. PT COMFORTABLE IN BED. PT DENIES HAVING FURTHER CONCERNS. WOUND VAC DRESSING C/D/I. GLENDA DRAIN INTACT.
[2019-09-15 21:36] VITALS: BP 111/44
[2019-09-16 05:00] LABS: CALCIUM 7.8 mg/dL (8.5-10.1); POTASSIUM 3.5 mmol/L (3.5-5.1)
[2019-09-16 05:12] VITALS: BP 119/63
[2019-09-16 07:20] VITALS: BP 142/72
--- NOTE | 2019-09-16 11:49 | NUR ---
SLOW MENTATION EARLY THIS A.M., AAOX4 NOW. HAS STARTED STOOLING, LIQUID, ABD SOUNDS STILL SLUGGISH. NG TO LIS, WOUND VAC INTACT. SR PER TELE. CALLS APPROPRIATELY FOR ASSIST. STILL, FALL PRECAUTIONS IN PLACE. WILL CONTINUE TO MONITOR CLOSELY.
[2019-09-16 12:00] VITALS: BP 107/53
[2019-09-16 15:31] VITALS: BP 107/64
--- NOTE | 2019-09-16 15:53 | NUR ---
AMBULATED IN AWAD WITH PT. UP TO CHAIR. NG CLAMPED. GIVEN 120ML SPRITE TO SIP. WILL CONTINUE TO MONITOR.
[2019-09-16 19:42] VITALS: BP 122/65
--- NOTE | 2019-09-16 22:55 | NUR ---
ASSUMED CARE OF PT AT 1900HRS. PT IS AOX4 WITH SOME CONFUSION. FALL PRECAUTION IN PLACE. FAMILY WAS AT BEDSIDE MOST OF THE TIMR. NG TUBE CLAMPED. PT IS TOLERATING PO LIQUIDS AND PILLS. PT HAD LOOSE BM THIS SHIFT. NO COMPLAINTS OF NAUSEA. PT REPORTED PAIN AND WAS TREATED WITH PRN PAIN MEDS. PT WAS ABLE TO GET COMFORTABLE AND SLEEP PART OF THE SHIFT. VSS AND NO S/S OF ACUTE DISTRESS. REPORTED OFF TO JAIME FOR THE REMAINDER OF THE SHIFT.
[2019-09-17 04:30] LABS: HEMATOCRIT 23.1 % (42.0-52.0); HEMOGLOBIN 7.5 gm/dL (14.0-18.0); MCH 30.2 pg (26.0-34.0); MCHC 32.5 g/dL (28.0-37.0); MCV 92.9 fL (80.0-100.0); RBC 2.49 mil/uL (4.50-6.00); RDW 13.4 % (10.5-14.5); WBC 21.4 thou/uL (4.0-11.0)
[2019-09-17 04:52] LABS: CALCIUM 7.8 mg/dL (8.5-10.1); CREATININE 1.1 mg/dL (0.7-1.3); MAGNESIUM 2.2 mg/dL (1.8-2.4); POTASSIUM 3.1 mmol/L (3.5-5.1)
[2019-09-17 05:09] VITALS: BP 94/61
--- NOTE | 2019-09-17 06:56 | NUR ---
REPORT RECEIVED FROM JOVON RN.ASSUMED CARE AT 2300.ALERT,FORGETFUL.NGT CLAMPED.ABLE TO SWALLOW PILLS.VOIDED.BM X 1 MONITOR SHOWS SR,ST.POC CONTINUED.
[2019-09-17 07:00] VITALS: BP 96/58
--- NOTE | 2019-09-17 08:00 | NUR ---
ASSUMED CARE OF PT APPROX 0715, A&0X4, CAN BE SLIGHTLY FORGETFUL, WILL AMB IN HALLS WITH HIM LATER IN SHIFT; HE EXPRESSED APPRECIATION; BORED, STATES HE FEELS LIKE HE'S BEEN IN BED TOO LONG AND THAT'S HIS ONLY PAIN AT THIS TIME. NO OUTPUT WHEN SURGEON ASPIRATED NG, NONE NOTED IN WOUND VAC. SURGEON REDRESSED L GROIN SITE. COMM W/PHYSICIAN CLARIFYIN DIET ORDER, NPO IN ORDERS, REPORTED OFF CLEAR LIQ. PT HUNGRY AND THIRSY. SEE SEPARATE INTERVENTIONS FOR ASSESSMENTS, WILL CONTINUE TO MONITOR. ENCOURAGED PT TO USE CALL LIGHT FOR ANY NEEDS
[2019-09-17 10:30] VITALS: BP 98/52
[2019-09-17 15:40] VITALS: BP 102/49
[2019-09-17 20:15] VITALS: BP 95/58
[2019-09-18 04:34] LABS: CALCIUM 7.7 mg/dL (8.5-10.1); MAGNESIUM 2.1 mg/dL (1.8-2.4); POTASSIUM 3.5 mmol/L (3.5-5.1)
[2019-09-18 04:55] LABS: HEMATOCRIT 22.7 % (42.0-52.0); HEMOGLOBIN 7.4 gm/dL (14.0-18.0); MCH 30.3 pg (26.0-34.0); MCHC 32.8 g/dL (28.0-37.0); MCV 92.3 fL (80.0-100.0); RBC 2.46 mil/uL (4.50-6.00); RDW 13.7 % (10.5-14.5); WBC 15.9 thou/uL (4.0-11.0)
--- NOTE | 2019-09-18 05:27 | NUR ---
ASSUMED PT CARE AT 1900. NO SIGN OF DISTRESS NOTED. PT IS ALERT AND ORIENTED WITH FORGETFUL. SPOUSE AT BEDSIDE. DENIES ANY NEED. FALL PRECAUTION IN PLACE. ASSESSMENT COMPLETED AND DOCUMENTED. SCHEDULED MEDS ADMINISTERED TO PT. CONTINUE TO MONITOR PT. DENIES ANY FURTHER NEEDS AT THIS TIME.
[2019-09-18 05:29] VITALS: BP 110/65
[2019-09-18 07:19] VITALS: BP 119/73
[2019-09-18 11:36] VITALS: BP 86/49
--- NOTE | 2019-09-18 11:38 | NUR ---
Assess due to length of stay. Admit with need for emergent surgical intervention for femoral artery pseudoaneurysm. Also with post op ileus which is resolving and pt slowly starting to eat again. Mild 4 lb wt decrease from a reported usual of 190. Low nutrition risk.
--- NOTE | 2019-09-18 16:56 | NUR ---
Met with patient and . Discussed post acute care for patient. agreeable patient needs post acute care. She reports he appears weak. 5N evaled and accepting. Possible 5N transfer in am
[2019-09-18 17:09] VITALS: BP 119/58
--- NOTE | 2019-09-18 19:56 | NUR ---
PROGRESSING TOWARDS GOALS. LIKELY TO MOVE TO 5NORHT TOMORROW. LEFT GROIN SITE WITH WOUND VAC IN PLACE. PAIN TREATED WITH MEDICATIONS. CALLS FOR ASSISTANCE.
[2019-09-18 20:35] VITALS: BP 102/63
[2019-09-19 04:15] VITALS: BP 106/46
[2019-09-19 05:52] LABS: HEMATOCRIT 22.7 % (42.0-52.0); HEMOGLOBIN 7.5 gm/dL (14.0-18.0); MCH 30.3 pg (26.0-34.0); MCHC 32.9 g/dL (28.0-37.0); MCV 92.1 fL (80.0-100.0); RBC 2.46 mil/uL (4.50-6.00); WBC 17.8 thou/uL (4.0-11.0)
[2019-09-19 06:08] LABS: CALCIUM 7.7 mg/dL (8.5-10.1); MAGNESIUM 1.9 mg/dL (1.8-2.4); POTASSIUM 3.2 mmol/L (3.5-5.1)
--- NOTE | 2019-09-19 08:07 | NUR ---
PT STILL C/O ABD. DISTENTION, FREQUENT GAS, AND LIQUID STOOLS, PRN PAIN MED GIVEN FOR C/O L ANKLE AND HEEL PAIN, FEET ELEVATED ON PILLOWS, SCDS ON, USING CALL FOR ASSIST, 5N CONSULT, PT AND OT ORDERED, TOLERATING REG DIET , VSS,SR ST WITH PVC AND SHORT RUNS VT WILL CON'T TO MONITOR PER PPOC.
--- NOTE | 2019-09-19 08:13 | NUR ---
PT RESTING QUIETLY IN ROOM, USES CALL LIGHT FOR ASSIST, PRN PAIN MED GIVEN AT HS FOR CHRONIC BACK AND SHOULDER, ASSISTS WITH TURNS, VSS, WILL CON'T TO MONITOR.
[2019-09-19 08:28] VITALS: BP 99/61
[2019-09-19 11:22] VITALS: BP 91/52
--- NOTE | 2019-09-19 13:17 | NUR ---
tenative plan for dc to 5N in am. updated 5N liagus. Call [phone] 5n unit if dc tomorrow.
--- NOTE | 2019-09-19 16:12 | NUR ---
SLOW MENTATION. LETHARGIC. MULTIPLE CONSULTS AND TESTS. LEFT LEG SUSPICIOUS FOR DVT. STOOL FOR OCCULT BLOOD POSITIVE. SR/ST PER TELE. AT BEDSIDE. HAS SPENT MUCH OF THE DAY IN BEDSIDE CHAIR WITH LEGS ELEVATED. FALL PRECAUTIONS IN PLACE. WILL CONTINUE TO FOLLOW CLOSELY.
[2019-09-19 17:07] VITALS: BP 127/69
[2019-09-19 17:49] VITALS: BP 101/52
[2019-09-19 19:59] VITALS: BP 101/62
[2019-09-20 04:39] VITALS: BP 110/51
--- NOTE | 2019-09-20 04:40 | NUR ---
PT LETHARGIC, SLOW AND DELIBERATE RESPONSES, PRN PAIN MED GIVEN FOR DISCOMFORT ASSISTED UP TO BR WITH GB AND WALKER, LIMPING ON LEFT FOOT THAT IS TENDER, NEGATIVE FOR PE, VSS, LABS DRAWN, SLEEPING QUIETLY IN ROOM WILL CON'T TO MONITOR PER PPOC.
[2019-09-20 05:36] LABS: HEMATOCRIT 24.2 % (42.0-52.0); HEMOGLOBIN 7.9 gm/dL (14.0-18.0); MCH 29.9 pg (26.0-34.0); MCHC 32.6 g/dL (28.0-37.0); RBC 2.63 mil/uL (4.50-6.00); RDW 13.7 % (10.5-14.5); WBC 17.6 thou/uL (4.0-11.0)
[2019-09-20 05:56] LABS: CALCIUM 7.9 mg/dL (8.5-10.1); CREATININE 1.1 mg/dL (0.7-1.3); MAGNESIUM 2.1 mg/dL (1.8-2.4); POTASSIUM 3.3 mmol/L (3.5-5.1)
[2019-09-20 07:45] VITALS: BP 101/51
[2019-09-20 16:20] VITALS: BP 99/50
[2019-09-20 18:30] LABS: POTASSIUM 3.6 mmol/L (3.5-5.1)
--- NOTE | 2019-09-20 18:41 | NUR ---
ASSUMED CARE 0700, ORIENTED X4, STATES HE IS TIRED AND SLEEPY, DOES WAKEN EASILY, LEFT FOOT AND ANKLE PAIN WITH SWELLING, ENCOUARGE ELEVATION OF FOOT. ORDERS FOR PRAVO BOOT PLACED WITH CENTRAL SUPPLY. TREATED LEFT ANKLE PAIN WITH MEDS. MEAL IN TAKE IMPROVING. GREATER THAN 50% EACH MEAL. ENCOURGED FLUIDS. NPO MIDNIGHT FOR EGD TOMORROW PER GI. BM TODAY WITH REPORT OF SOFT FORMED. UP WITH ASSISTANCE X1. BEDSIDE AT THIS TIME. CALL LIGHT IN REACH.
[2019-09-20 20:15] VITALS: BP 93/49
--- NOTE | 2019-09-20 23:13 | HC ---
[facility] [place] [address] CONSULTATION Name: OLIVIA RICHMOND Room #: 207-P [facility] IN ..#: [id number] Admission: 09/11/19 Attend Phys: Cong Zamora MD Discharge: Date of : 54 Report #: [id number] THIS REPORT FOR: //name// CC: VALENTINE Alvarenga GASTROENTEROLOGY CONSULTATION REASON FOR CONSULTATION: The patient is a 69-year-old male with drop in hemoglobin, Hemoccult-positive stools. HISTORY OF PRESENT ILLNESS: The patient's major health issue has been vasculopathy. He has had a number of stents placed in his lower extremities and also coiling of an aneurysm. On 08/28, he underwent a stent graft placement for abdominal aortic aneurysm as well as left renal artery stenting. He has had a difficult postoperative course. He represented on 09/11 and was found to have a pseudoaneurysm, requiring further surgical intervention. Apparently, that was a fairly bloody procedure. It is noted that prior to these interventions, on 08/29 he had hemoglobin of 13.1; when he came for the second admission on the , it was 12.1; it has dropped since then, is now down to 7.5. He has not had any grossly bloody or black stools. Stools have been liquid and yellow recently. However, they are Hemoccult positive. The patient tolerated apparently had an ileus following his procedure. An NG tube was replaced. According to his , a small amount of brownish material was obtained from the stomach with NG suctioning. There is no prior history of ulcer disease. There has been no vomiting or hematemesis. He has never had an upper endoscopy. He denies any solid food dysphagia. Other than a baby aspirin, he did not use nonsteroidals as an outpatient. He has denied reflux symptoms, but he does report that he would take at least 1 Tums weekly. He has never had an upper endoscopy. He did have a colonoscopy within the past 1 [address] Poncho Giordano at [facility]. According to his , he has now had 2 "clean" colonoscopies. Also, there is no prior history of ulcer disease. PAST MEDICAL HISTORY: He has multiple comorbidities. He has been a long-term cigarette smoker and stopped just prior to his first surgery. He has had abdominal aortic aneurysm, also left renal artery disease requiring stenting. He has had stents in his lower extremities and coiling of aneurysm in his extremities. His believes that he has 1 stent in his heart. He also has elevated lipids and high blood pressure. He has been treated for depression. He has had elevated cholesterol. ALLERGIES: No known drug allergies. [address] [address] CONSULTATION Name: OLIVIA RICHMOND Room #: 207-P [facility] IN ..#: [id number] Admission: 09/11/19 Attend Phys: Cong Zamora MD Discharge: Date of : 54 Report #: [id number] CURRENT MEDICATIONS: Here in the hospital includes potassium, spironolactone, Plavix, atorvastatin, aspirin, metoprolol, famotidine, insulin p.r.n., simethicone, MiraLax, ondansetron glucose, calcium carbonate, bisacodyl, acetaminophen. FAMILY HISTORY: Colon cancer and ulcer disease. SOCIAL HISTORY: , smoked up until earlier this month. He does not drink much alcohol. REVIEW OF SYSTEMS: GENERAL: He has lost weight with his recent illness. No fever, chills or loss of consciousness. HEENT: No change in vision, hearing or sores in the mouth. PULMONARY: Chronic cigarette smoker. No cough, pneumonia or tuberculosis. CARDIOVASCULAR: Apparently, he has a coronary stent. He also has peripheral vascular disease, has multiple stents and grafts placed. GASTROINTESTINAL: Some nausea. No vomiting, no hematemesis. Colonoscopy in the past 1 to 2 years negative per his report. GENITOURINARY: Renal artery stenosis. He also has an enlarged prostate. MUSCULOSKELETAL: No arthralgias or myalgias. SKIN: Without rashes. PSYCHIATRIC: He has been treated for depression, possibly anxiety. HEMATOLOGIC: No previous problems with anemia or bleeding. No known cancers. PHYSICAL EXAMINATION: GENERAL: The patient is a well-developed, chronically ill-appearing male who appears to be fatigued, in no acute distress. VITAL SIGNS: Blood pressure 91/52. HEENT: Anicteric. Pupils equal, round. Oropharynx clear. NECK: Supple. CHEST: Clear. HEART: Irregular rate and rhythm. Normal S1, S2. A 2/6 systolic murmur. ABDOMEN: Somewhat full, but soft good. Normal bowel sounds, nontender without hepatosplenomegaly or masses. RECTAL: Not done at this time. EXTREMITIES: Without cyanosis, clubbing or edema. NEUROLOGICAL: Oriented to person, place and time. Moves all 4 extremities well. LABORATORY DATA: Hemoglobin as noted above, white count of 17,800. INR 1.1. Sodium 134, potassium 3.2. LFTs are unremarkable. ASSESSMENT: 1. Progressive anemia. [facility] [address] [place] [address] CONSULTATION Name: OLIVIA RICHMOND Room #: 207-P [facility]#: [id number] Admission: 09/11/19 Attend Phys: Cong Zamora MD Discharge: Date of : 54 Report #: [id number] 2. Hemoccult-positive stools. 3. Recent aortic stent graft placement with subsequent pseudoaneurysm, requiring surgical repair. 4. High blood pressure. 5. Coronary artery disease with single coronary stent. 6. Intermittent heartburn. 7. Use of aspirin. COMMENT: Discussed with the patient and his . They report he has had 2 colonoscopies, both recent in the past 1 to 2 years. I am not sure we need to look at his colon at this point in time. However, he did have brownish liquid from his NG tube. Although much of his anemia is likely related to blood loss and his acute illness, need to consider the possibility of peptic mucosal disease contributing to his anemia. RECOMMENDATIONS: 1. Agree with famotidine for now. 2. Upper endoscopy probably on 09/21. 3. Monitor hemoglobin. 4. Follow up KUB regarding ileus. <ELECTRONICALLY SIGNED> By: Valentine Wiggins MD 09/20/19 2313 [id number] Valentine Wiggins MD /nt
[2019-09-21 00:18] VITALS: BP 102/59
[2019-09-21 04:45] VITALS: BP 118/59
--- NOTE | 2019-09-21 05:06 | NUR ---
PT A&O X4 ABLE TO MAKE NEEDS KNOWN. DENIES PAIN. ASSIST X1 WITH TRANSFERS. PT HAS A WOUND VAC TO L GROIN. PT NPO SINCE MIDNIGHT FOR EGD IN THE MORNING.
[2019-09-21 05:13] LABS: HEMATOCRIT 22.3 % (42.0-52.0); HEMOGLOBIN 7.3 gm/dL (14.0-18.0); MCH 29.9 pg (26.0-34.0); MCHC 32.5 g/dL (28.0-37.0); RBC 2.43 mil/uL (4.50-6.00); RDW 14.2 % (10.5-14.5); WBC 13.7 thou/uL (4.0-11.0)
[2019-09-21 05:29] LABS: CALCIUM 7.5 mg/dL (8.5-10.1); CREATININE 0.9 mg/dL (0.7-1.3); MAGNESIUM 1.9 mg/dL (1.8-2.4); POTASSIUM 3.4 mmol/L (3.5-5.1)
[2019-09-21 07:34] VITALS: BP 116/65
[2019-09-21 11:00] VITALS: BP 111/55
--- NOTE | 2019-09-21 12:24 | NUR ---
Pt has been cleared for dc to 5N acute rehab today. They have a bed for him and can admit this afternoon. Pt is agreeable. Care team updated.
[2019-09-21] MEDS ORDERED: SPIRONOLACTONE25 M1 PO (13:22)
[2019-09-21] MEDS ORDERED: PEPCID20 MG PO (13:23)
--- NOTE | 2019-09-21 13:53 | NUR ---
ASSUMED CARE 0700. EGD COMPLETED WITH NO INTERVENTIONS. SWELLING IN LEFT LE 2+ PRAVO BOOTS TOLERATED. DISCHARGING TO [address] [place] [address] TODAY.
--- NOTE | 2019-09-22 11:11 | HC ---
[facility] [place] [address] CONSULTATION Name: OLIVIA RICHMOND Room #: 207-P [facility]#: [id number] Admission: 09/11/19 Attend Phys: Cong Zamora MD Discharge: 09/21/19 Date of : 54 Report #: [id number] THIS REPORT FOR: //name// CC: Cong Alvarenga DATE OF SERVICE: 09/18/2019 HISTORY OF PRESENT ILLNESS: The patient is a 69-year-old white male with history of coronary artery disease, underwent prior cardiac stents, who also has peripheral arterial disease with prior stenting. He was admitted this time with a left femoral artery pseudoaneurysm and underwent emergent repair 09/11/2019. His course postoperatively has been complicated by postoperative ileus for which he needed an NG tube as well as acute renal insufficiency. He also had leukocytosis. He was tried on clear liquid diet with gradual improvement regarding postoperative ileus. He does have medical complexity with generalized debilitation. We are seeing him in rehabilitation medicine consultation. He has a portable Prevena device in place for dressing of the left groin. PAST MEDICAL HISTORY: Hyperlipidemia, hypertension, peripheral vascular disease with bilateral stents, anal fistula repair, depression and colonoscopy. MEDICATIONS: Please see the full medication listing. ALLERGIES: No known drug allergies. HABITS: Former tobacco smoker of cigarettes 1 pack per day for 45 years, quit less than or equal to a year ago. REVIEW OF SYSTEMS: No current complaints of chest pain, shortness of breath or abdominal discomfort. PHYSICAL EXAMINATION: GENERAL: A 69-year-old white male in no obvious distress. VITAL SIGNS: Last recorded temperature 98.1, pulse 75, respirations 16, and blood pressure is 86/49. The patient is alert. HEENT: Appeared to be benign. NEUROLOGIC: Cranial nerves are grossly intact. Facies are symmetric. EXTREMITIES: Functional range of motion of both upper extremities with strength grade 4-/5. DTRs are trace to 1. Lower extremities: He does have significant scrotal edema with some ecchymosis. He has the left groin with the dressing in place. There is no focal calf swelling. He can dorsiflex the left ankle. Strength is probably a grade 4-/5, right lower extremity reveals functional range of motion strength is probably a grade 4-/5. He is sit to stand, min assist. Gait was 75 feet min assist noted to be unsteady. As far as occupational therapy, he has difficulty with ADLs and was unable to don his left sock. [address] [address] CONSULTATION Name: OLIVIA RICHMOND Room #: 207-P [facility]#: [id number] Admission: 09/11/19 Attend Phys: Cong Zamora MD Discharge: 09/21/19 Date of : 54 Report #: [id number] ASSESSMENT: A 69-year-old white male with the following problems: 1. Medical complex with generalized debilitation. 2. Left femoral artery pseudoaneurysm, status post emergent repair 09/11/2019. 3. Postoperative ileus, warranting an NG tube, has been advanced as far as clear liquids. 4. Acute renal insufficiency. 5. Leukocytosis. 6. Prior abdominal aortic aneurysm with stent graft implant. 7. Coronary artery disease. 8. Hypertension. PLAN: The patient is a candidate for a short acute in-hospital inpatient rehabilitation stay. We will be checking into rehab options and looking at the [address] [place] [address] rehab ivan, pending bed availability. Thank you for asking us to assist in this patient's care. <ELECTRONICALLY SIGNED> By: Mike Garvey MD 09/22/19 1111 1425 1556 Mike Garvey MD /nt
== END 2019-09-21 15:19 | DRG 252 ==
LOC: ER 14:32 → 2N 16:40 → ICU 16:40 → EROBS 16:40 → ICU 09-12 01:07 → 2N 09-13 14:57
PROVIDERS: Anesthesiology; Emergency Medicine; Internal Medicine; Nurse Practitioner; Nurse Practitioner Acute Care; Physician Assistant; Surgery Vascular Surgery; ADMIT Hospitalist
PROC: 04CL0ZZ Extirpation of Matter from Left Femoral Artery, Open Approach (ICD-10-PCS; principal; 2019-09-11)
PROC: 30233K1 Transfusion of Nonautologous Frozen Plasma into Peripheral Vein, Percutaneous Approach (ICD-10-PCS; principal; 2019-09-11)
PROC: 04UL0JZ Supplement Left Femoral Artery with Synthetic Substitute, Open Approach (ICD-10-PCS; principal; 2019-09-11)
PROC: 30233R1 Transfusion of Nonautologous Platelets into Peripheral Vein, Percutaneous Approach (ICD-10-PCS; 2019-09-12)
PROC: 0DJ08ZZ Inspection of Upper Intestinal Tract, Via Natural or Artificial Opening Endoscopic (ICD-10-PCS; 2019-09-21)
DX: T81.718A Complication of other artery following a procedure, not elsewhere classified, initial encounter (principal); N17.0 Acute kidney failure with tubular necrosis; K56.7 Ileus, unspecified; I10 Essential (primary) hypertension; E78.5 Hyperlipidemia, unspecified; I73.9 Peripheral vascular disease, unspecified; F32.9 Major depressive disorder, single episode, unspecified; D72.829 Elevated white blood cell count, unspecified; I25.10 Atherosclerotic heart disease of native coronary artery without angina pectoris; F41.9 Anxiety disorder, unspecified; D64.9 Anemia, unspecified; K26.9 Duodenal ulcer, unspecified as acute or chronic, without hemorrhage or perforation; R12 Heartburn; R63.4 Abnormal weight loss; I71.4 Abdominal aortic aneurysm, without rupture; E87.6 Hypokalemia; Z95.5 Presence of coronary angioplasty implant and graft; Z87.891 Personal history of nicotine dependence; Z95.820 Peripheral vascular angioplasty status with implants and grafts; Z68.28 Body mass index [BMI] 28.0-28.9, adult; Z71.6 Tobacco abuse counseling; Z79.82 Long term (current) use of aspirin; Z79.899 Other long term (current) drug therapy; Y83.8 Other surgical procedures as the cause of abnormal reaction of the patient, or of later complication, without mention of misadventure at the time of the procedure; Y92.89 Other specified places as the place of occurrence of the external cause
CPT/HCPCS: 10078; 10081; 50010; 50011; 50101; 50386; 50455; 50953; 51165; 51412; 51751; 52095; 52287; 56524; 56525; 56526; 56527; 56668; 56760; 62110; 62900; 65020; 65040; 65090; 70005; 85076

== ENCOUNTER 2019-09-19 10:20 | Inpatient (IN) | payer OTHER ==
[~2019-09-19] VITALS: Ht 172.7 cm; Wt 91.4 kg
--- NOTE | ~2019-09-19 | H ---
[facility] [address] HISTORY AND PHYSICAL Name: OLIVIA RICHMOND Room #: 510-P ADM IN .R.#: [id number] Admission: 09/21/19 Attend Phys: Mike Garvey MD Discharge: Date of : 54 Report #: [id number] THIS REPORT FOR: //name// CC: Mike Alvarenga DATE OF SERVICE: 09/21/2019 POST ADMISSION PHYSICIAN EVALUATION HISTORY OF PRESENT ILLNESS: The patient has been admitted for acute in-hospital inpatient rehabilitation. Please see the admission documentation. Agree with the documented information, examination, assessment and plan as noted. He had a stent graft for the aortic aneurysm with intraoperative arteriography and left renal artery stent placed on 08/28/2019. He was found in the ED to have a left femoral artery pseudoaneurysm and underwent emergent repair on 09/11/2019. Postop, he developed an ileus, had an NG tube placed. He had some renal insufficiency. He underwent an EGD for heme positive stool. It showed no active bleeding. He was tolerating a liquid diet. He has the wound VAC to the left groin. He has medical complexity with generalized debilitation and has now been admitted for acute in-hospital inpatient rehabilitation. As far as prior medical history, social history, habits, allergies, please see the history and physical. MEDICATIONS: Please see the MAR. REVIEW OF SYSTEMS: No current complaints of chest pain, shortness of breath or abdominal discomfort. PHYSICAL EXAMINATION: GENERAL: He is alert, pleasant. VITAL SIGNS: Temperature 97.7, pulse 62, respirations 20, blood pressure 108/64. HEENT: Appeared to be benign. CHEST: Sounded clear to auscultation. CARDIOVASCULAR: Regular rate and rhythm. ABDOMEN: Bowel sounds positive, nontender. GENITOURINARY AND RECTAL: Deferred. EXTREMITIES: He does have the left groin wound VAC in place. He is able to lift the left lower extremity, has some discomfort, left proximal leg is expected. Strength is probably 3+ to 4-/5, right lower extremity reveals functional range of motion with strength grade 3+ to 4-/5. Functional range of motion of the upper extremities strength is probably grade 4-/5. ASSESSMENT: [facility] [address] [place] [address] HISTORY AND PHYSICAL Name: OLIVIA RICHMOND Room #: 510-P [facility] IN [facility].#: [id number] Admission: 09/21/19 Attend Phys: Mike Garvey MD Discharge: Date of : 54 Report #: [id number] 1. Medical complexity with generalized debilitation. 2. Left femoral artery pseudoaneurysm, status post emergent repair on 09/11/2019. 3. Anemia with positive occult stool. 4. Postop ileus noted to be resolving. 5. Leukocytosis noted to be resolving. 6. Acute renal insufficiency. 7. History of abdominal aortic aneurysm with stent on 08/28/2019 8. Coronary artery disease. 9. Hypertension. PLAN: The patient has been admitted for an acute in-hospital inpatient rehabilitation stay. From a postadmission physician evaluation perspective, there are no relevant changes since the preadmission screening. Please see the above review of prior and current medical and functional conditions and comorbidities. Please see the patient's previous and current functional status. As far as risk of complications, the patient has multiple medical comorbidities as noted above. Initial plan of care involves the interdisciplinary acute inpatient rehabilitation program. Measurable functional goals would be for the patient to become modified independent with transfers, mobility and ADLs. Prognosis is reasonably good with estimated length of stay probably at least 10 days to 2 weeks. Potential barriers would include the multiple medical comorbidities and decreased functional status. The patient meets diagnostic criteria for an acute in-hospital inpatient rehabilitation stay. He meets the medical necessity criteria and we will have the delivery consultant physicians continue to follow. He does have the tolerance for therapies and has appropriate discharge goals back to the home setting. By: [id number] Mike Garvey MD /PMT
--- NOTE | ~2019-09-19 | PLAN ---
[facility] [place] [address] REHAB UNIT PLAN OF CARE Name: OLIVIA RICHMOND Room #: 510-P [facility] IN M.R.#: [id number] Admission: 09/21/19 Attend Phys: Mike Garvey MD Discharge: 09/23/19 Date of : 54 Report #: [id number] THIS REPORT FOR: //name// CC: Mike Alvarenga DATE OF SERVICE: 09/23/2019 PROGRESS NOTE/OVERALL PLAN OF CARE The patient is seen back today in followup. He is in no distress. Last recorded temperature 36.3, pulse 67, respirations 18, blood pressure 104/66. He has had lab results positive for C. diff. He is on treatment as noted with oral vancomycin as well as Flagyl. He has the dressing to the left groin. He has been working in therapies with transfers, min assist. Gait min assist, 15 feet with a front-wheeled walker. Occupational therapy, upper body dressing is setup, lower body dressing is max assist. ASSESSMENT: 1. Medical complexity with generalized debilitation. 2. Left femoral artery pseudoaneurysm, status post emergent repair on 09/11/2019. 3. Anemia with positive occult stool. 4. Postoperative ileus noted to be resolving. 5. Leukocytosis noted to be resolving. 6. Acute renal insufficiency. 7. History of abdominal aortic aneurysm with stent on 08/28/2019. 8. Coronary artery disease. 9. Hypertension. 10. Anemia. Last hemoglobin was 7.0. Gastroenterology is involved. PLAN: The overall plan of care is based on the preadmission screen, post-admission physician evaluation and information garnered from therapy assessments. 1. Estimated length of stay is probably at least 7-10 days and likely longer. 2. Medical prognosis is reasonably good. 3. Anticipated interventions includes the interdisciplinary acute inpatient rehabilitation program. 4. Anticipated functional outcomes would be for the patient to become modified independent with transfers, mobility, ADLs that he can return back to the home setting. 5. Discharge destination would be back to the home setting where he lives with his . 6. Expected therapy by discipline includes PT and OT, 1-1/2 hours per day each [address] [address] REHAB UNIT PLAN OF CARE Name: YIOLIVIA Jose Eduardo Room #: 510-P [facility] IN [facility].#: [id number] Admission: 09/21/19 Attend Phys: Mike Garvey MD Discharge: 09/23/19 Date of : 54 Report #: [id number] five days a week throughout the duration of the acute inpatient rehabilitation stay. By: [id number] Mike Garvey MD /LUANN
[2019-09-21] MEDS ORDERED: SPIRONOLACTONE25 M1 PO (13:22)
[2019-09-21] MEDS ORDERED: PEPCID20 MG PO (13:23)
[2019-09-21 15:35] VITALS: BP 108/64
[2019-09-22 05:08] LABS: HEMATOCRIT 21.6 % (42.0-52.0); HEMOGLOBIN 7.3 gm/dL (14.0-18.0); MCH 30.9 pg (26.0-34.0); MCHC 33.7 g/dL (28.0-37.0); MCV 91.5 fL (80.0-100.0); RBC 2.36 mil/uL (4.50-6.00); WBC 13.8 thou/uL (4.0-11.0)
[2019-09-22 05:25] LABS: CALCIUM 7.7 mg/dL (8.5-10.1); CREATININE 0.9 mg/dL (0.7-1.3); POTASSIUM 3.9 mmol/L (3.5-5.1)
[2019-09-22 07:27] VITALS: BP 111/71
[2019-09-22 20:30] VITALS: BP 114/64
[2019-09-23 04:17] LABS: HEMATOCRIT 21.3 % (42.0-52.0); MCH 29.8 pg (26.0-34.0); MCHC 32.8 g/dL (28.0-37.0); MCV 90.8 fL (80.0-100.0); RBC 2.34 mil/uL (4.50-6.00); RDW 14.2 % (10.5-14.5); WBC 13.8 thou/uL (4.0-11.0)
[2019-09-23 07:43] VITALS: BP 104/66
[2019-09-23 08:44] VITALS: BP 104/66
[2019-09-23 11:34] LABS: OBSERVED RETIC COUNT 2.69 % (0.6-2.6)
[2019-09-23 16:10] LABS: % SATURATION 25 % (20-39); IRON 26 ug/dL (65-175); TIBC 104 ug/dL (250-450)
[2019-09-23 16:37] LABS: FOLIC ACID 16.9 ng/mL (8.6-58.9)
[2019-09-25 10:07] LABS: POC BE 0 mmol/L (-2.0 to +3.0); POC CA IONIZED 3.9 mg/dL (4.5-5.3); POC GLUCOSE 145 mg/dL (70-99); POC HEMOGLOBIN 9.5 g/dL (14.0-18.0); POC POTASSIUM 4.1 mmol/L (3.5-5.1); POC SODIUM 134 mmol/L (136-145); POC pCO2 46.5 mmHg (35.0-45.0); POC pH 7.355 (7.360-7.450)
[2019-09-25 10:07] LABS: POC BE -1 mmol/L (-2.0 to +3.0); POC CA IONIZED 4.1 mg/dL (4.5-5.3); POC GLUCOSE 146 mg/dL (70-99); POC HCO3 24.7 mmol/L (22.0-26.0); POC HEMOGLOBIN 7.1 g/dL (14.0-18.0); POC POTASSIUM 3.9 mmol/L (3.5-5.1); POC SODIUM 134 mmol/L (136-145); POC pCO2 44.2 mmHg (35.0-45.0); POC pH 7.355 (7.360-7.450)
[2019-09-25 10:07] LABS: POC BE 0 mmol/L (-2.0 to +3.0); POC CA IONIZED 3.9 mg/dL (4.5-5.3); POC GLUCOSE 147 mg/dL (70-99); POC HCO3 25.3 mmol/L (22.0-26.0); POC HEMOGLOBIN 9.9 g/dL (14.0-18.0); POC SODIUM 135 mmol/L (136-145); POC pCO2 46.1 mmHg (35.0-45.0); POC pH 7.348 (7.360-7.450)
[2019-09-25 10:07] LABS: POC BE -2 mmol/L (-2.0 to +3.0); POC CA IONIZED 4.1 mg/dL (4.5-5.3); POC GLUCOSE 156 mg/dL (70-99); POC HCO3 23.5 mmol/L (22.0-26.0); POC HEMOGLOBIN 7.1 g/dL (14.0-18.0); POC POTASSIUM 3.6 mmol/L (3.5-5.1); POC SODIUM 135 mmol/L (136-145); POC pCO2 40.6 mmHg (35.0-45.0); POC pH 7.372 (7.360-7.450)
== END 2019-09-23 14:05 | disposition short-term general hospital (02) | DRG 948 ==
PROVIDERS: Nurse Practitioner; Nurse Practitioner Family; Specialist; ADMIT Physical Medicine & Rehabilitation
DX: R53.81 Other malaise (principal); K56.7 Ileus, unspecified; N17.9 Acute kidney failure, unspecified; I10 Essential (primary) hypertension; E78.5 Hyperlipidemia, unspecified; I73.9 Peripheral vascular disease, unspecified; F17.210 Nicotine dependence, cigarettes, uncomplicated; F32.9 Major depressive disorder, single episode, unspecified; I72.4 Aneurysm of artery of lower extremity; D64.9 Anemia, unspecified; I25.10 Atherosclerotic heart disease of native coronary artery without angina pectoris; K26.9 Duodenal ulcer, unspecified as acute or chronic, without hemorrhage or perforation; Z79.899 Other long term (current) drug therapy; Z79.82 Long term (current) use of aspirin; Z95.820 Peripheral vascular angioplasty status with implants and grafts; Z95.5 Presence of coronary angioplasty implant and graft; Z82.49 Family history of ischemic heart disease and other diseases of the circulatory system
CPT/HCPCS: 10112

== ENCOUNTER 2019-09-23 14:10 | Inpatient (IN) | payer OTHER ==
[~2019-09-23] VITALS: Ht 172.7 cm; Wt 56.0 kg
[2019-09-23] VITALS (17 sets, daily range): BP systolic 78–140; BP diastolic 43–90
--- NOTE | ~2019-09-23 | HC ---
[facility] [place] [address] CONSULTATION Name: YIOLIVIA Jose Eduardo Room #: 203-P [facility] IN .R.#: [id number] Admission: 09/23/19 Attend Phys: Che Church MD Discharge: 10/05/19 Date of : 54 Report #: [id number] THIS REPORT FOR: //name// CC: Che Alvarenga DATE OF SERVICE: 10/02/2019 WOUND CARE CONSULTATION CHIEF COMPLAINT: Left inguinal surgery wound. HISTORY OF PRESENT ILLNESS: This is a 69-year-old male patient who was noted to have an abdominal aortic aneurysm and who is status post stent graft implant with Dr. Gramajo. The original surgery was on 08/28/2019. It was performed in conjunction with Dr. Ventura. He was noted on 09/11/2019 to have a left femoral artery pseudoaneurysm and underwent an emergent repair of the left femoral artery pseudoaneurysm. 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 He has had an open wound to the left groin area with exposed arteries. I have been asked to see him with regard to ongoing wound care and for management of the wound VAC postoperatively. There has been a contact layer of Dermacea to cover the exposed vascular structures with a plan of VAC changes twice weekly. The patient is feeling somewhat better, starting to regain his strength. He is hoping to not return to the operating room. PAST MEDICAL HISTORY: The patient has a history of hypertension, dyslipidemia, peripheral vascular disease, coronary artery disease, has a history of tobacco abuse, abdominal aortic aneurysm as detailed above, inferior mesenteric artery coiling. ALLERGIES: No known drug allergies. SOCIAL HISTORY: The patient lives at home with his who was present at the bedside today. SOCIAL HISTORY: No history of alcohol use. He is a former smoker. ALLERGIES: None. CURRENT MEDICATIONS: Include Cathflo, Tums, citalopram, famotidine, gabapentin, hydrocodone, melatonin, Zosyn and vancomycin. REVIEW OF SYSTEMS: CONSTITUTIONAL: The patient denies fever, chills or weight loss. NEUROLOGICAL: The patient denies focal weakness, numbness or tingling. [address] [address] CONSULTATION Name: OLIVIA RICHMOND Room #: 203-P [facility] IN .R.#: [id number] Admission: 09/23/19 Attend Phys: Che Church MD Discharge: 10/05/19 Date of : 54 Report #: [id number] EYES: The patient denies visual changes, redness, or drainage. EENT: The patient denies earache, nasal drainage or sore throat. CARDIOVASCULAR: The patient denies chest pain, palpitations or diaphoresis. PULMONARY: The patient denies cough or shortness of breath. GASTROINTESTINAL: The patient denies nausea, vomiting, diarrhea or abdominal pain. ORTHOPEDIC: The patient does have some pain in the left inguinal region. There is a wound VAC in place. Other systems in a 14-point review of systems are negative. PHYSICAL EXAMINATION: VITAL SIGNS: Include temperature 100.2, pulse 66, respiratory rate 16, blood pressure 149/72. GENERAL: This is a chronically ill-appearing male patient who appears to be in no obvious distress. HEENT: Head normocephalic. Nose and throat are clear. NECK: Supple. ABDOMEN: Revealed normoactive bowel sounds present. EXTREMITIES: Examination of the lower extremities demonstrates a surgical dressing in place following left above-knee amputation. The left groin is examined. There is a wound VAC dressing in place at this point in time. Plans will be made for change later in the week. It is a good seal. There is no bleeding or leakage at this time. NEUROLOGIC: The patient is alert, oriented and appropriate. LABORATORY STUDIES: Include sodium 140, potassium 3.4, chloride 101, CO2 of 36, BUN 6, creatinine 0.7, glucose is 114. White blood cell count 8.8 with a hemoglobin of 8.6. CLINICAL IMPRESSION: 1. Surgical wound to the left inguinal region following active bleeding from a pseudoaneurysm of the femoral artery, status post debridement and control of hemorrhage. 2. History of abdominal aortic aneurysm. 3. Peripheral vascular disease. 4. History of tobacco abuse. 5. Acute blood loss anemia. RECOMMENDATIONS: At this point in time, we will continue with the plan with Dermacea to the wound base with KCI wound VAC to the inguinal wound. Xeroform gauze, ABD, Kerlix and BEV to the AKA stump. He will need ongoing aggressive [address] [address] CONSULTATION Name: OLIVIA RICHMOND Room #: 203-P [facility] IN M.R.#: [id number] Admission: 09/23/19 Attend Phys: Che Church MD Discharge: 10/05/19 Date of : 54 Report #: [id number] nutritional support. All findings were reviewed with Dr. Gramajo and Sincere Madsen. The patient is agreeable with the current plan of care. By: [id number] Loco Kelly MD /margie
--- NOTE | ~2019-09-23 | O ---
[facility] [place] [address] OPERATIVE REPORT Name: OLIVIA RICHMOND Room #: 203-P [facility] IN M.R.#: [id number] Admission: 09/23/19 Attend Phys: Che Church MD Discharge: Date of : 54 Report #: [id number] THIS REPORT FOR: //name// CC: Che Ruelasros DATE OF SERVICE: 10/02/2019 PREOPERATIVE DIAGNOSIS: Left femoral wound. POSTOPERATIVE DIAGNOSIS: Left femoral wound. OPERATION: Wound VAC change. SURGEON: Simba Gramajo MD TECHNICIAN PREVENTATIVE MEDICINE: Sincere Madsen. ANESTHESIA: General. INDICATIONS: The patient is a 69-year-old with an infected left groin wound. This was removed and wound was left open with exposed arteries. The wound VAC changes have been done under anesthesia in the operating room. FINDINGS AND TECHNIQUE: After general anesthesia was established, the wound VAC sponge was removed. The fine mesh gauze over the femoral vessels was removed and the wound was inspected. The wound measured approximately 16 x 5 mm and was starting to granulate. The wound looked much coke still cleaner than the last time we have changed the dressing. The wound was inspected in concert with the wound care nurse. The wound care team was consulted to help care for the patient. Fine mesh gauze was reapplied to the femoral vessels and then the coarse sponge was placed over this and wound VAC dressing was reapplied externally. The patient tolerated all this well and was returned to the recovery area in good condition. By: Simba Gramajo MD /margie
--- NOTE | 2019-09-23 14:00 | NUR ---
2ND UNIT OF [facility] STARTED. 3 UNITS WRITTEN TO TRANSFUSE. 1ST UNIT WAS STARTED ON REHAB. DR. MEDEL HERE AND GOING TO TAKE HIM TO OR. DR. MCDONALD HERE. WROTE FOR 25MCG OF FENTANYL X1. THIS WAS GIVEN.
[~2019-09-23 14:10] MED LIST changes: +PEPCID20 MG PO; +SPIRONOLACTONE25 M1 PO
--- NOTE | 2019-09-23 14:27 | NUR ---
PHYSICIAN INFORMED OF TEMP.
[2019-09-23 14:49] LABS: HEMATOCRIT 26.1 % (42.0-52.0); HEMOGLOBIN 8.3 gm/dL (14.0-18.0); MCH 29.9 pg (26.0-34.0); MCHC 31.7 g/dL (28.0-37.0); MCV 94.5 fL (80.0-100.0); PLATELET COUNT 307 thou/uL (150-400); RBC 2.76 mil/uL (4.50-6.00); RDW 14.8 % (10.5-14.5); WBC 21.1 thou/uL (4.0-11.0)
--- NOTE | 2019-09-23 14:55 | NUR ---
DR. MEDEL HERE WELL PATIENT . PATIENT OFF TO OR AT THIS TIME.
--- NOTE | 2019-09-23 15:00 | NUR ---
VITAL SIGNS WERE OBTAINE FROM THE MOMENT PATIENT ARRIVED. PATIENT DATA HAD TO BE ENTERED INTO THE MONITOR IN ORDER FOR PATIENT VITAL SIGNS TO INSTALLATION SPECIALIST. ONCE THIS WAS DONE, IT ERASED ALL PREVIOUS DATA. PATIENT WAS SINUS TACHYCARDIC UPON ARRIVAL. O2 SATURATION WAS IN UPPER 80% UNTIL A NON REBREATHER AND NASAL CANNULA WAS PLACED. HE WAS ON THE NONREBREATHER AND 6L O2. BLOOD CULTURES WERE DRAWN PRIOR TO ANTIBIOTICS, LABS WERE DRAWN BY IV TEAM RN ONCE IV'S WERE PLACED. FENTANYL WAS GIVEN PER MD ORDERS.
[2019-09-23 15:07] LABS: INR 1.2; PROTIME 12.2 Seconds (9.3-11.4)
--- NOTE | 2019-09-23 16:23 | NUR ---
1340-RESPONDED TO CLAIM MANAGER 0N 5-S.--VW 1530-UPON ARRIVAL INTO PT'S ROOM ON 5-S,2 RN'S HOLDING PRESSURE LT GROIN. PRESENT IN ROOM. THIS RN REMOVED WOUND VAC,DIRECT PRESSURE HELD TO LT GROIN SITE.SITE W MANY HARD AREAS.UPPER 1/3 OF INCISION W SMALL DEHISENCE,ACTIVELY SPURTING BLOOD WHEN PRESSURE LET UP.PT AWAKE,ANSWERS?'S APPROP.SHIVERING VIOLENTLY.PT MOTTLED,COLD EXTREM'S.LIPS,FACE,HANDS VERY CYANOTIC.BLOOD OPENED WIDE,DIRECT PRSS HELD ON TRANSFER TO ICU & OVER TO O.R. THIS RN HELD PRSS UNTIL O.R. TEAM TOOK OVER ~(1530).WHILE IN ICU,PT FEBRILE.LABS,BC X2 DONE. IV THERAPY IN TO START PIV'S (TOTAL OF 3). 1L NS RAN WIDE PER ORDER.PT OVER TO O.R. W 2ND UPRB INFUSING AT 100ML/HR.ABRAMS PLACED W IMMED RETURN YELLOW URINE. IN FOR ~10MIN PRIOR TO PT HEADING TO O.R.WARM BLANKET WHILE ON FLOOR,TAHMINA HUGGER ON LOW SETTING WHILE IN ICU DESPITE FEVER FOR CONT'D VIOLENT SHIVERING. PT C/O SHARP,SUDDEN PAIN IN BACK p ARRIVAL INTO UNIT.FENTANYL GIVEN X 2 SEP DOSES FOR PAIN.GOMEZ MCDONALD & GIANFRANCO SPOKE W PT & .AWARE OF CRITICAL STATUS OF PT. IV ABX'S TAKEN TO O.R. FOR THEM TO HANG.OFFERED PASTORAL CARE TO PT-HE DECLINED--VW 1600- & SON IN SURGERY WAITING ROOM.OFFERED PASTORAL CARE-THEY DECLINED.--VW
[2019-09-23 17:08] LABS: ABSOLUTE NEUTROPHILS 16.5 thou/uL (1.4-8.2); ATYPICAL LYMPHS 1 %; NUCLEATED RBCS 1 /100WBC
[2019-09-23 17:10] LABS: SCHISTOCYTES OCCASIONAL
[2019-09-23 18:39] LABS: CALCIUM 8.2 mg/dL (8.5-10.1); CREATININE 1.5 mg/dL (0.7-1.3)
[2019-09-23 20:38] LABS: HCO3 22.3 mmol/L (22.0-26.0); PCO2 36.2 mmHg (35.0-45.0); PO2 500.4 mmHg (80.0-100.0); pH 7.408 (7.360-7.450); sO2 99.9 % (92.0-98.0)
--- NOTE | 2019-09-23 21:34 | NUR ---
VASCULAR ACCESS TEAM CONSULTED FOR A PICC FOR THIS PT IN ICU/POSTOP. PT HAD SURGERY FOR A BLEED AND WILL NEED A VAD FOR MULTIPLE IV MEDS. PT CONSENTED AND 4FRDBLPICC PLACED WITH NO COMPLICATIONS. LINE RELEASED TO RN FOR USE AFTER CXR CONFIRMED THE TIP AT THE [facility]. PLEASE SEE INSERTION NI FOR DETAILS
--- NOTE | 2019-09-23 21:48 | NUR ---
CALLED BACK REGARDING OF CONSULTATION. ORDER TO OBTAIN CXR AND ABG IN AM.
[2019-09-24] VITALS (35 sets, daily range): BP systolic 89–109; BP diastolic 45–65
--- NOTE | 2019-09-24 05:00 | NUR ---
PT ARRIVED IN ICU FROM OR AT 2000 LAST NIGHT. PT INTUBATED AND PUT ON VENT. PROPOFOL GTT INITIATED FOR VENT MANAGMENT. PT BECAME HYPOTENSIVE AFTER ARRIVAL TO UNIT. 1 L NS BOLUS GIVEN PER ORDER FROM HOSPITALIST. BP IMPROVED. WOUND VAC TO L GROIN. TWO GLENDA DRAINS PRESENT. L FOOT COOL TO TOUCH AND PT UNABLE TO MOVE L FOOT/LEG D/T LIGATION OF FEMORAL ARTERIES. L LEG PERIPHERAL PULSES PRESENT WITH DOPPLER. PT C/O OF PAIN IN L LEG; FENTANYL GIVEN. WILL CONTINUE TO MONITOR.
[2019-09-24 05:17] LABS: PCO2 28.7 mmHg (35.0-45.0); PO2 230.9 mmHg (80.0-100.0); sO2 99.6 % (92.0-98.0)
[2019-09-24 05:45] LABS: ABSOLUTE NEUTROPHILS 16.5 thou/uL (1.4-8.2); BASOPHILS 0.5 % (0.0-2.0); EOSINOPHILS 0.2 % (0.0-3.0); HEMATOCRIT 27.5 % (42.0-52.0); HEMOGLOBIN 9.4 gm/dL (14.0-18.0); MCH 30.7 pg (26.0-34.0); MCHC 34.1 g/dL (28.0-37.0); MONOCYTES 9.7 % (1.0-8.0); POLYS 82.6 % (36.0-66.0); RBC 3.05 mil/uL (4.50-6.00); RDW 14.2 % (10.5-14.5)
[2019-09-24 05:53] LABS: PLATELET COUNT 189 thou/uL (150-400)
[2019-09-24 06:04] LABS: ALBUMIN 1.2 g/dL (3.4-5.0); CALCIUM 6.5 mg/dL (8.5-10.1); CREATININE 0.9 mg/dL (0.7-1.3); MAGNESIUM 1.9 mg/dL (1.8-2.4); PHOSPHORUS 4.1 mg/dL (2.5-4.9); POTASSIUM 3.7 mmol/L (3.5-5.1); TOTAL BILIRUBIN 0.6 mg/dL (<0.1-1.0); TOTAL PROTEIN 4.2 g/dL (6.4-8.2)
[2019-09-24 16:53] LABS: CALCIUM 7.2 mg/dL (8.5-10.1); CREATININE 0.8 mg/dL (0.7-1.3); POTASSIUM 3.6 mmol/L (3.5-5.1)
--- NOTE | 2019-09-24 18:59 | NUR ---
ASSESSMENTS DOCUMENTED. PT LIGHTLY SEDATED ON PROPOFOL FOR VENT COMFORT. AWAKENS TO VERBAL STIMULI. WILL FOLLOW COMMANDS AND NOD HEAD YES/NO. VSS. UPDATED DR. MEDEL ON INABILITY TO DOPPLE LEFT PEDAL PULSE. LEG COOL TO TOUCH FROM KNEE DOWN. CYANOTIC. UNABLE TO MOVE EXTREMITIY, BUT NODS HEAD YES WHEN ASKED IF HE CAN FEEL ME TOUCHING HIS LEG. GRAM NEGATIVE BLOOD CULTURES. ID CONSULT - DR. GUTIERREZ IN TO SEE PATIENT. NEW ORDERS FOR ABX. VODING ADEQUATE AMOUNTS. REMAINS IN ISOLATION FOR C-DIFF.
[2019-09-25] VITALS (26 sets, daily range): BP systolic 106–132; BP diastolic 58–75
--- NOTE | 2019-09-25 06:00 | NUR ---
REMAINS INTUBATED AND SEDATED. AROUSES EASILY AND FOLLOWS COMMANDS LEFT LEG PULSELESS MOTTLED AND COLD TO TOUCH. DR MEDEL AWARE. 150 CC CC FROM WOUND VAC 100 CC #1 GLENDA AND 600 CC SEROUS YELLOW DRAINAGE FROM GLENDA #2 900 CC DARK LAURA UO. PT S/C TO GO BACK TO OR THIS AFTERNOON FOR A WASH OUT. REMAINS IN SINUS RHYTHM. WILL CONBT TO MONITOR
--- NOTE | 2019-09-25 06:07 | HC ---
[facility] [place] [address] CONSULTATION Name: OLIVIA RICHMOND Room #: 246-P [facility] IN ..#: [id number] Admission: 09/23/19 Attend Phys: Che Church MD Discharge: Date of : 54 Report #: [id number] THIS REPORT FOR: //name// CC: Che Alvarenga DATE OF SERVICE: 09/24/2019 ATTENDING PHYSICIAN: Dr. Church. REASON FOR EVALUATION: Gram-negative endovascular infection complicated by septicemia. HISTORY OF PRESENT ILLNESS: Chart reviewed, patient examined. This is a 69-year-old gentleman with extensive medical history primarily related vasculopathy. In early August, he underwent a repair of an abdominal aortic aneurysm, placement of a stent graft, which extended to the left renal artery repair as well as a left femoral endarterectomy. Postop course was complicated by emergent repair of left femoral artery pseudoaneurysm and roughly 2 weeks later, on 09/11/2019, required about a 10-day hospital stay, he was transferred to the rehab unit, had active bleeding and as a result did require intubation. He remains somewhat hemodynamically unstable. As per the evaluation, did have cultures from the site collected at time of surgery as well as blood cultures, all of which is growing gram-negative rods. The earlier cultures have evidence of growth of Pseudomonas. He has been on broad-spectrum antimicrobial therapy including cefepime, vancomycin, and metronidazole. He is on oral vancomycin as well for the C. diff colitis. At this point, he is sedated on the vent, FiO2 of 40%. ALLERGIES: None known. CURRENT MEDICATIONS: Include p.r.n. analgesics, antiemetics, anxiolytics. Oral vancomycin 125 p.o. q.i.d., parenteral vancomycin, famotidine, propofol, nicardipine, cefepime and Flagyl. PAST MEDICAL HISTORY: History of hypertension, dyslipidemia, widespread vascular disease, history of abdominal aortic aneurysm with repair in 08/2019, depression. SOCIAL HISTORY: Former smoker. No ethanol. No illicit drug use. FAMILY HISTORY: Noncontributory. REVIEW OF SYSTEMS: As above. PHYSICAL EXAMINATION: [facility] [address] [place] [address] CONSULTATION Name: OLIVIA RICHMOND Room #: 246-P [facility] IN .R.#: [id number] Admission: 09/23/19 Attend Phys: Che Church MD Discharge: Date of : 54 Report #: [id number] GENERAL: He is sedated on the vent, in some [id number] distress, appears undernourished. He is somewhat pale. VITAL SIGNS: Temperature 98, pulse 60, respirations 21, blood pressure 107/53. SKIN: Warm, dry. HEENT: ET and OG tube in place. NECK: Appears to be supple. LUNGS: Few scattered coarse breath sounds. HEART: Regular. I do not appreciate a murmur. ABDOMEN: Mildly distended. EXTREMITIES: He has got doughy type edema associated with left groin, there is some large contused area suggests a hematoma. Does have a wound VAC in place. Distal lower extremity is cold. GENITOURINARY AND RECTAL: Deferred. LABORATORY DATA: Most recent electrolytes, sodium 140, potassium 3.6, chloride 108, bicarbonate is 24, anion gap of 8, BUN and creatinine 18 and 0.8, glucose of 118. Estimated GFR of 96. Cultures from the left groin site have confirmed Pseudomonas aeruginosa. Blood cultures with gram-negative rods, presumptively the same. Chest x-ray, no overt infiltrates, effusions or pneumothoraces. A KUB, gaseous distention of the small bowel with decompression of the stomach. Electrolytes: Sodium 136, potassium 3.7, chloride 105, bicarbonate is 22, anion gap of 9, BUN and creatinine 19 and 0.9, glucose of 71. Liver function tests unremarkable. Albumin 1.2, total protein 4.2. Estimated GFR of 84. ABGs from earlier today, pH 7.460, pCO2 of 27, pO2 of 230.9, FiO2 of 55%. C. difficile by PCR was positive on 09/22/2019, enteric bacterial panel was negative. H. pylori was negative as well. ASSESSMENT AND PLAN: 1. Gram-negative septicemia in a setting of multiple procedures with confirmation of Pseudomonas. We will continue the cefepime based on the antibiogram, most likely susceptible. It is reasonable to give a dose of gentamicin as well just in the case it is resistant. He is critically ill. I think it is reasonable to continue the other antimicrobials as well, including vancomycin. At this point, it is not clear that the limb is salvageable. Fortunately, he has reasonably normal lung and kidney function and perhaps cardiac in spite of all his vasculopathy. 2. Secondly, he has Clostridium difficile colitis is confirmed, continue the oral vancomycin via the enteral route. Overall, his prognosis appears quite guarded. <ELECTRONICALLY SIGNED> By: Duy Martel MD 09/25/19 0607 [id number] Duy Martel MD /nt
[2019-09-25 06:34] LABS: ABSOLUTE NEUTROPHILS 11.6 thou/uL (1.4-8.2); BASOPHILS 0.8 % (0.0-2.0); EOSINOPHILS 1.6 % (0.0-3.0); HEMATOCRIT 25.6 % (42.0-52.0); HEMOGLOBIN 8.5 gm/dL (14.0-18.0); LYMPHOCYTES 10.6 % (24.0-44.0); MCH 30.5 pg (26.0-34.0); MCHC 33.3 g/dL (28.0-37.0); MCV 91.6 fL (80.0-100.0); MONOCYTES 10.1 % (1.0-8.0); PLATELET COUNT 228 thou/uL (150-400); POLYS 76.9 % (36.0-66.0); RBC 2.79 mil/uL (4.50-6.00); RDW 14.6 % (10.5-14.5); WBC 15.1 thou/uL (4.0-11.0)
[2019-09-25 06:51] LABS: CALCIUM 7.1 mg/dL (8.5-10.1); CREATININE 0.7 mg/dL (0.7-1.3); MAGNESIUM 2.1 mg/dL (1.8-2.4); PHOSPHORUS 2.4 mg/dL (2.5-4.9); POTASSIUM 3.7 mmol/L (3.5-5.1)
--- NOTE | 2019-09-25 16:00 | NUR ---
INITIAL ASSESSMENT: Pt evaluated for d/c planning needs. Reviewed chart. Pt was transferred from Rehab on 09/23. Pt was hospitalized at [facility] and went to Rehab on 09/21. Pt was independent with ADL's prior to admission and used no DME and has not had home health in the past. Pt lives in house with spouse. Will remain available to assist as needed.
--- NOTE | 2019-09-25 19:24 | NUR ---
PT REMAINS SEDATED WITH PROPOFOL. WILL OPEN EYES TO COMMAND AND NODS TO YES/NO QUESTIONS. COMPLAINING OF BACK PAIN THIS AFTERNOON. GIVEN FENT AND MORPHINE. PT'S AT BEDSIDE AND UPDATED THIS AFTERNOON. PLAN FOR SURGERY FOR CHANGE OF WOUND VAC. CONSENT SIGNED. UNABLE TO OBTAIN PULSE IN L FOOT AND PURPLISH DISCOLORATION TO LEFT LEG/FOOT WORSENING TODAY. DR CARO. REPORT GIVEN TO METAL CUT OFF SAW OPERATOR RN.
[2019-09-26] VITALS (18 sets, daily range): BP systolic 90–119; BP diastolic 53–68
[2019-09-26 05:24] LABS: ABSOLUTE NEUTROPHILS 5.8 thou/uL (1.4-8.2); BASOPHILS 1.1 % (0.0-2.0); EOSINOPHILS 2.3 % (0.0-3.0); LYMPHOCYTES 12.9 % (24.0-44.0); MCH 31.4 pg (26.0-34.0); MCHC 33.6 g/dL (28.0-37.0); MCV 93.4 fL (80.0-100.0); MONOCYTES 10.2 % (1.0-8.0); PLATELET COUNT 175 thou/uL (150-400); POLYS 73.5 % (36.0-66.0); RBC 2.08 mil/uL (4.50-6.00); RDW 14.6 % (10.5-14.5); WBC 7.9 thou/uL (4.0-11.0)
[2019-09-26 05:27] LABS: HEMOGLOBIN 6.5 gm/dL (14.0-18.0)
[2019-09-26 05:28] LABS: HEMATOCRIT 19.4 % (42.0-52.0)
[2019-09-26 05:55] LABS: CREATININE 0.3 mg/dL (0.7-1.3); MAGNESIUM 1.3 mg/dL (1.8-2.4)
[2019-09-26 06:05] LABS: CALCIUM 4.9 mg/dL (8.5-10.1); POTASSIUM 2.3 mmol/L (3.5-5.1)
[2019-09-26 08:20] LABS: HEMATOCRIT 25.9 % (42.0-52.0); MCH 30.4 pg (26.0-34.0); MCV 92.3 fL (80.0-100.0); RBC 2.81 mil/uL (4.50-6.00); RDW 14.3 % (10.5-14.5); WBC 11.4 thou/uL (4.0-11.0)
[2019-09-26 08:23] LABS: CREATININE 0.8 mg/dL (0.7-1.3)
[2019-09-26 08:24] LABS: CALCIUM 7.5 mg/dL (8.5-10.1); POTASSIUM 3.6 mmol/L (3.5-5.1)
[2019-09-26 08:27] LABS: HEMOGLOBIN 8.6 gm/dL (14.0-18.0)
--- NOTE | 2019-09-26 14:00 | NUR ---
PT RETURNED FROM OR, REQUESTED ANOTHER DR TO BE CALLED TO DISCUSS PROGNOSIS AND PLAN OF CARE. VERY TEARFUL WHEN PT RETURNED FROM OR. DR AMARJIT BUTLER, HE THEN MET IN ICU WAITING ROOM AND ANSWERED ALL OF HER QUESTIONS. ARTERIAL LINE, VERY DAMPEND, GOOD WAVE FORM IMMEDITELY AFTER FLUSHING, GOOD BLOOD RETURN. THIS RN USED NIBP TO MEASURE BP THROUGHOUT DAY. PT AWAKE INTERMITTENTLY THROUGHOUT DAY, APPROPRIATELY RESPONDS TO YES/NO QUESTION, LEFT LEFT REMAINS COLD MOTTLED AND PULSELESS, UNABLE TO DOPPLER POPLITEAL. WILL MONITOR CLOSELY.
[2019-09-27] VITALS (17 sets, daily range): BP systolic 99–149; BP diastolic 56–78
[2019-09-27 05:46] LABS: HEMATOCRIT 24.4 % (42.0-52.0); HEMOGLOBIN 8.3 gm/dL (14.0-18.0); MCH 31.5 pg (26.0-34.0); MCHC 33.9 g/dL (28.0-37.0); MCV 92.8 fL (80.0-100.0); RBC 2.63 mil/uL (4.50-6.00); RDW 14.6 % (10.5-14.5); WBC 9.5 thou/uL (4.0-11.0)
[2019-09-27 06:14] LABS: CALCIUM 7.4 mg/dL (8.5-10.1); CREATININE 0.7 mg/dL (0.7-1.3); POTASSIUM 3.6 mmol/L (3.5-5.1)
--- NOTE | 2019-09-27 06:19 | NUR ---
Received report and assumed patient care at 1900. Patient noted to be on the ventilator with Propofol infusing. Patient opens eyes on command and answers with a nod appropriately to yes/no questions. Patient noted to have a wound vac to the left groin and an A-line in the left radial. Patient medicated for pain in the back and legs throughout the shift. Spouse updated on the care plan and no acute events occurred.
--- NOTE | 2019-09-27 10:27 | NUR ---
Recommend start enteral nutrition due prolonged npo status. Rec vital high protein to start 25ml/hr with goal 40ml/hr while on propofol.
--- NOTE | 2019-09-27 10:43 | O ---
[facility] [place] [address] OPERATIVE REPORT Name: OLIVIA RICHMOND Room #: 246-P [facility] IN M.R.#: [id number] Admission: 09/23/19 Attend Phys: Che Church MD Discharge: Date of : 54 Report #: [id number] THIS REPORT FOR: //name// CC: Che Alvarenga DATE OF SERVICE: 09/26/2019 PREOPERATIVE DIAGNOSIS: Left groin wound. POSTOPERATIVE DIAGNOSIS: Left groin wound. OPERATION: Wound VAC change. SURGEON: Simba Gramajo MD ANESTHESIA: General. INDICATIONS: The patient is an unfortunate fellow who had a pseudoaneurysm rupture in the left groin. The patient was returned to the operating room recently for hemodynamic and septic shock at which time the left femoral graft was removed. Because of the specter of infection and the critical condition of the patient, no graft was replaced in this area and the femoral vessels were merely ligated and wound VAC was placed knowing that this was a life or limb situation. The patient was returned to the operating room for wound VAC change management specialist the femoral vessels. FINDINGS AND TECHNIQUE: After general anesthesia was established, the old VAC was carefully removed. The fine mesh gauze over the vessels was saturated and then carefully removed, so as not to disturb any of the healing tissue below. The wound itself measured 16 cm long x 5 cm wide and was deep including skin, subcutaneous tissue and all the way down to and including the femoral arteries. A new multiple thickness fine mesh gauze dressing was applied to the vessels themselves. This was saturated, so that it would sit nicely and then the VAC sponge was replaced on top and then the remainder of the VAC was constructed externally. The patient tolerated all of this well and was returned to the Intensive Care Unit. <ELECTRONICALLY SIGNED> By: Simba Gramajo MD 09/27/19 1043 [id number] Simba Gramajo MD /nt
[2019-09-27 12:22] LABS: BE(vivo) -0.1 mmol/L (-2 to +3); HCO3 23.6 mmol/L (22.0-26.0); PCO2 34.7 mmHg (35.0-45.0); PO2 168.2 mmHg (80.0-100.0); sO2 99.2 % (92.0-98.0)
--- NOTE | 2019-09-27 17:00 | NUR ---
PT ALERT AND FOLLOWING COMMANDS ON VENT, ORDERS TO EXTUBATE PER CHARLEY, DIRECTOR OF CATEGORY MANAGEMENT ORDERS WILL INITIATE SABRINA. EXTUBATED 1620, TOLERATED WELL A/OX4. PT RATING PAIN 8/10 PAIN SCALE. AT BEDSIDE, REQUESTED TO SPEAK WITH PATTY REGARDING POC. PATTY ANSWERED QUESTIONS AND AGREES WITH POC.
--- NOTE | 2019-09-27 18:00 | NUR ---
WOUND VAC CANISTER CHANGED 175ML OUT
[2019-09-28] VITALS (20 sets, daily range): BP systolic 120–139; BP diastolic 56–69
[2019-09-28 05:29] LABS: MCH 31.5 pg (26.0-34.0); MCHC 33.8 g/dL (28.0-37.0); MCV 93.1 fL (80.0-100.0); RBC 1.9 mil/uL (4.50-6.00); WBC 6.2 thou/uL (4.0-11.0)
[2019-09-28 05:51] LABS: CREATININE 0.5 mg/dL (0.7-1.3)
[2019-09-28 06:04] LABS: HEMATOCRIT 17.6 % (42.0-52.0)
[2019-09-28 06:23] LABS: CALCIUM 5.9 mg/dL (8.5-10.1); POTASSIUM 2.8 mmol/L (3.5-5.1)
[2019-09-28 06:32] LABS: HEMATOCRIT 25.7 % (42.0-52.0); MCH 31.1 pg (26.0-34.0); MCHC 33.5 g/dL (28.0-37.0); MCV 92.9 fL (80.0-100.0); RBC 2.77 mil/uL (4.50-6.00); RDW 13.9 % (10.5-14.5); WBC 9.6 thou/uL (4.0-11.0)
[2019-09-28 06:44] LABS: HEMOGLOBIN 8.6 gm/dL (14.0-18.0)
[2019-09-28 06:53] LABS: CALCIUM 7.4 mg/dL (8.5-10.1); CREATININE 0.7 mg/dL (0.7-1.3); POTASSIUM 3.5 mmol/L (3.5-5.1)
--- NOTE | 2019-09-28 09:00 | NUR ---
Patient VS remained stable and no acute events occurred during this shift. Continuing towards plan of care.
--- NOTE | 2019-09-28 19:42 | NUR ---
ASSUMED PT CARE AT 0700. VSS. PT A&0X4. STABLE, PT HAD OVER 700ML URINE OUTPUT. FECAL MANAGEMENT SYSTEM IN PLACE DRAINING SOME. L RADIAL ART LINE REMOVED TODAY AT 0310PM. LEFT CISNEROS SKIN TEAR PICTURE TAKEN TODAY AND IN CHART. PT IS STABLE, PAIN CONSTANTLY STAYS AT 3. PT TOLERATED HIS DIET WELL TODAY. FAMILY IN ROOM. WILL CONTINUE TO MONITOR PER POC.
[2019-09-29] VITALS (25 sets, daily range): BP systolic 118–148; BP diastolic 57–75
[2019-09-29 06:06] LABS: HEMATOCRIT 25.7 % (42.0-52.0); HEMOGLOBIN 8.5 gm/dL (14.0-18.0); MCH 30.3 pg (26.0-34.0); MCV 91.7 fL (80.0-100.0); RBC 2.8 mil/uL (4.50-6.00); RDW 13.8 % (10.5-14.5); WBC 7.9 thou/uL (4.0-11.0)
[2019-09-29 06:18] LABS: CALCIUM 7.6 mg/dL (8.5-10.1); CREATININE 0.6 mg/dL (0.7-1.3); POTASSIUM 3.2 mmol/L (3.5-5.1)
--- NOTE | 2019-09-29 13:23 | NUR ---
PT LEFT UNIT JUST BEFORE NOON TO GO TO SURGERY.
--- NOTE | 2019-09-29 16:34 | NUR ---
PT RETURNED FROM SURGERY AT 1600. PT DECLINED REPOSITIONING, DID ELEVATE RIGHT FOOT ON PILLOW. PT GIVEN PEPSI AND CHIPS BY . PRECISION CROP MANAGER RESTARTED AND IVF HOOKED UP.
--- NOTE | 2019-09-29 20:13 | NUR ---
DR. WOOD WITH ORTHO PRESENT AT THE BEDSIDE. SPOKE WITH PATIENT ABOUT ABOVE THE KNEE AMPUTATION ON LEFT SIDE. THE PLAN IS TO TAKE PATIENT TO SURGERY ON Wednesday10/01/19 IF MEDICALLY CLEARED BY PRIMARY AND CONSULTING DOCTORS.
[2019-09-30] VITALS (23 sets, daily range): BP systolic 121–164; BP diastolic 49–113
[2019-09-30 05:34] LABS: HEMATOCRIT 25.1 % (42.0-52.0); HEMOGLOBIN 8.4 gm/dL (14.0-18.0); MCH 31.1 pg (26.0-34.0); MCHC 33.5 g/dL (28.0-37.0); MCV 92.7 fL (80.0-100.0); RBC 2.71 mil/uL (4.50-6.00); WBC 8.2 thou/uL (4.0-11.0)
[2019-09-30 05:42] LABS: CALCIUM 8.1 mg/dL (8.5-10.1); CREATININE 0.7 mg/dL (0.7-1.3); MAGNESIUM 1.8 mg/dL (1.8-2.4)
--- NOTE | 2019-09-30 07:51 | NUR ---
PATIENT ALERT AND ORIENTED X4, PAIN CONTROLLED WITH BROILER SUPERVISOR MEDICATION. WOUND VAC IN PLACE. GLENDA DRAINS MINIMAL OUTPUT NOTED. PATIENT EDUCATED ON THE PLAN OF CARE AND VERBALIZE UNDERSTANDING. ASSESSMENT UNCHANGED. NO SIGNS OF ACUTE DISTRESS NOTED AT THIS TIME. WILL CONTINUE TO MONITOR.
--- NOTE | 2019-09-30 08:55 | O ---
[facility] [address] OPERATIVE REPORT Name: OLIVIA RICHMOND Room #: 246-P [facility] IN M.R.#: [id number] Admission: 09/23/19 Attend Phys: Che Church MD Discharge: Date of : 54 Report #: [id number] THIS REPORT FOR: //name// CC: Che Alvarenga DATE OF SERVICE: 09/29/2019 PREOPERATIVE DIAGNOSIS: Left groin wound. POSTOPERATIVE DIAGNOSIS: Left groin wound. OPERATION: Wound VAC change. SURGEON: Simba Gramajo MD ANESTHESIA: General. INDICATIONS: The patient is a 69-year-old who had an infected graft in the left groin wound. The patient has ligated femoral vessels and we have been treating this with the wound VAC and carefully redressing it in the operating room. FINDINGS AND TECHNIQUE: After general anesthesia was established, the old dressings were removed after the patient was prepped and draped. The wound VAC sponge was removed and then fine mesh gauze covering the vessels was soaked with saline and then carefully removed. There was reasonable granulation tissue starting to heal. The extent of the wound was approximately 16 cm long x 5 cm wide and deep through the fascia and muscle layers and down to and including the femoral arteries. The wound appeared relatively clean with granulation tissue beginning. There were; however, some terry areas that may be more slowly healing. In any event, a new clean fine mesh gauze was soaked in multiple thicknesses to cover the femoral arteries and then a wound VAC sponge was replaced. The remainder of the wound VAC dressing was applied after the drapes were removed. The patient tolerated all this well and was returned to the Intensive Care Unit. <ELECTRONICALLY SIGNED> By: Simba Gramajo MD 09/30/19 0855 [id number] Simba Gramajo MD /nt
--- NOTE | 2019-09-30 19:20 | NUR ---
Report given to oncomig nurse. Signature for surgery consent form obtained from as pt is in isolation and weak. Pt is aware however of plans for surgery tomorrow. No pusles present left foot this shift and foot is cool and has color changes. Pt NPO after midnight for planned amputation in the morning.
[2019-09-30 19:55] LABS: CALCIUM 8.4 mg/dL (8.5-10.1); CREATININE 0.7 mg/dL (0.7-1.3); MAGNESIUM 1.9 mg/dL (1.8-2.4)
[2019-09-30 19:56] LABS: POTASSIUM 2.9 mmol/L (3.5-5.1)
[2019-10-01] VITALS (47 sets, daily range): BP systolic 120–160; BP diastolic 64–107
[2019-10-01 03:15] LABS: HEMATOCRIT 25.9 % (42.0-52.0); HEMOGLOBIN 8.6 gm/dL (14.0-18.0); MCH 30.7 pg (26.0-34.0); MCHC 33.2 g/dL (28.0-37.0); MCV 92.7 fL (80.0-100.0); PLATELET COUNT 375 thou/uL (150-400); RBC 2.79 mil/uL (4.50-6.00); RDW 13.9 % (10.5-14.5); WBC 8.8 thou/uL (4.0-11.0)
--- NOTE | 2019-10-01 04:57 | NUR ---
ASSUMED PT CARE AROUND 1900. A&OX4, FORGETFUL. PT APPEARS TO HAVE FLAT AFFECT AND BE CONCERNED ABOUT SURGERY TODAY. REASSURANCE PROVIDED. C/O LLE PAIN. PT USES FENTANYL QUANTITATIVE DEVELOPER PUMP NEEDED FOR PAIN. VSS. AFEBRILE. PT SLEPT OFF AND ON DURING THE NIGHT. HE DID NOT WANT TO BE REPOSITIONED EVERY 2 HOURS. HE IS ABLE TO HELP MOVE HIMSELF SLIGHTLY IN THE BED. DRESSINGS CHANGED TO WOUND SITES SOME OF THEM WERE WEEPING. BLE ELEVATED TO HELP REDUCE SWELLING. LOWER LLE AND LEFT FOOT COOL TO TOUCH. LEFT FOOT IN HEEL PROTECTOR BOOT. FALL PRECAUTIONS IN PLACE. PT HAS BEEN NPO SINCE MIDNIGHT FOR SURGERY TODAY. PROGRESSING SLOWLY TOWARD POC GOALS. WILL CONTINUE TO MONITOR FURTHER.
[2019-10-01 05:54] LABS: ABSOLUTE NEUTROPHILS 6.2 thou/uL (1.4-8.2)
[2019-10-01 07:10] LABS: PROTIME 10.7 Seconds (9.3-11.4)
--- NOTE | 2019-10-01 11:35 | NUR ---
Pt returned to room from PACU post AKA. Pt is awake and alert. Pt reporting pain 7/10 at surgical site. Harlan wrap dry/intact to left stump. Connected to bedside monitor. Wound vac is intact and running.
[2019-10-01 12:02] LABS: HEMATOCRIT 30.4 % (42.0-52.0); HEMOGLOBIN 10.1 gm/dL (14.0-18.0)
[2019-10-01 12:08] LABS: CALCIUM 8.8 mg/dL (8.5-10.1); CREATININE 0.7 mg/dL (0.7-1.3); PHOSPHORUS 2.8 mg/dL (2.5-4.9); POTASSIUM 3.4 mmol/L (3.5-5.1)
--- NOTE | 2019-10-01 13:08 | NUR ---
GUT DROPPER dc'd per orders from Dr Messer and Dilaudid 1 mg given IV for incisional pain at surgical site (AKA). Pt reports he is feeling hungry.
--- NOTE | 2019-10-01 19:00 | NUR ---
Report given to oncoming nurse. Pt resting. Improving pain control-see emar for medications administered. assisted with evening meal. Pt demonstrating improved appetite. Harlan to left AKA site remains dry/intact.
--- NOTE | 2019-10-01 20:17 | O ---
[facility] [place] [address] OPERATIVE REPORT Name: OLIVIA RICHMOND Room #: 246-P [facility] IN M.R.#: [id number] Admission: 09/23/19 Attend Phys: Che Church MD Discharge: Date of : 54 Report #: [id number] THIS REPORT FOR: //name// CC: Che Alvarenga DATE OF SERVICE: 10/01/2019 SERVICE: Orthopedics. FACILITY: [facility]. SURGEON: Stan Zacarias MD RESIDENT MEDICAL OFFICER: Margarita Garcia NP PREOPERATIVE DIAGNOSES: 1. Ischemic left lower extremity. 2. 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 3. Retained intravascular stent, left femoral artery. POSTOPERATIVE DIAGNOSES: 1. Ischemic left lower extremity. 2. 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 3. Retained intravascular stent, left femoral artery. PROCEDURES: 1. Left above knee amputation. 2. Adductor myodesis, left leg. 3. Removal of endovascular implant, left femoral artery. COMPLICATIONS: None. DRAINS: None. SPECIMENS: Leg. FINDINGS: Successful AKA. HISTORY: The patient is a 69-year-old gentleman who had an unfortunate history of acutely ruptured femoral artery pseudoaneurysm. He has had several surgeries to stabilize this issue. The infection has been addressed, his stent was removed and he was ultimately deemed to be a candidate for above knee amputation [facility] [place] [address] OPERATIVE REPORT Name: OLIVIA RICHMOND Room #: 246-P [facility] IN M.R.#: [id number] Admission: 09/23/19 Attend Phys: Che Church MD Discharge: Date of : 54 Report #: [id number] primarily because of the issue with his ligated femoral vessels. This had to be performed in order to save life or limb in his situation. He was having demarcation and increasing ischemia that went up to at least the level of the knee. We had discussion about treatment options. Risks, benefits, alternatives and indication of surgery were discussed with him and his . They gave full informed consent. Risks include pain, bleeding, infection, progression of the condition as well as complications related to anesthesia up to and including . They gave informed consent and wished to move forward in that direction. PROCEDURE IN DETAIL: After left lower extremity was correctly identified in preoperative holding area as the operative extremity, the patient was taken to the operating room where general anesthesia was induced without complications and was padded appropriately. Prophylactic antibiotics were not initiated in the OR as he is receiving a regimen currently. Left leg was prepped and draped in standard sterile fashion. Time-out procedure was performed. We draped out around the wound VAC from the previous femoral artery exploration. This was left in place and was functional throughout the procedure. The skin incision was marked out and then a skin incision was made. Skin flaps were developed. Hemostasis was achieved throughout the procedure. Electrocautery was used to transect the muscle to minimize bleeding. The femoral vessels were identified and delicately dissected out individually and then tied off with silk ligature ties. No tourniquet was used during the procedure and we moved forward with a deliberate and delicate dissection to ensure minimal blood loss. The femoral artery was tied off and then it was becoming difficult to transect it and it turned out that this was at the level of the previous retained femoral artery stent graft and so the artery was then cut distal to the ligature and then I removed the stent graft just distal to the level of the ligature and then completed the transection of the vessel. There was no significant bleeding that occurred and this portion of the procedure went uneventfully. The adductor muscle was then dissected free and the tendon was preserved as it was transected and then the leg was removed and the posterior soft tissues and flaps were completed. Some additional debulking was required of the anterior quadriceps muscles. The anterior aspect of the femur was bevelled and then a 2 mm drill bit was used to create a single tunnel in the medial aspect of the femur and then a #1 Vicryl was used to perform modified Warren type stitch in the adductor muscle and then a myodesis was performed to the medial femur. The wound was then copiously irrigated. The muscle layers were closed with 0 Vicryl suture in [id number] fashion, then the fascial layer was closed with 0 Vicryl suture and the skin was closed with 2-0 Vicryl followed by skin ash. Sterile dressing was applied. The patient was awakened from anesthesia and [address] [address] OPERATIVE REPORT Name: OLIVIA RICHMOND Jose Eduardo Room #: 246-P [facility] IN M.R.#: [id number] Admission: 09/23/19 Attend Phys: Che Church MD Discharge: Date of : 54 Report #: [id number] taken to recovery room in stable condition. No complications. All counts were correct. <ELECTRONICALLY SIGNED> By: Stan Zacarias MD 10/01/192016 1223 1244 Stan Zacarias MD /nt
[2019-10-02] VITALS (49 sets, daily range): BP systolic 128–166; BP diastolic 66–89
[2019-10-02 06:32] LABS: HEMATOCRIT 24.4 % (42.0-52.0); MCH 31.2 pg (26.0-34.0); MCHC 33.4 g/dL (28.0-37.0); MCV 93.7 fL (80.0-100.0); PLATELET COUNT 395 thou/uL (150-400); RBC 2.61 mil/uL (4.50-6.00); RDW 14.4 % (10.5-14.5); WBC 10.5 thou/uL (4.0-11.0)
[2019-10-02 06:39] LABS: POTASSIUM 3.2 mmol/L (3.5-5.1)
[2019-10-02 06:48] LABS: HEMOGLOBIN 8.1 gm/dL (14.0-18.0)
--- NOTE | 2019-10-02 09:11 | NUR ---
Recommend liberalize diet order to regular. Pt eating very poorly and has high energy and protein requirements. Continue ensure enlive bid
[2019-10-02 09:50] LABS: ABSOLUTE NEUTROPHILS 6.4 thou/uL (1.4-8.2); ANISOCYTOSIS 1+
--- NOTE | 2019-10-02 11:09 | NUR ---
ASSUMED PT CARE AT 0700. VSS. PT A&0X4. PT IS STABLE, PAIN MANAGEMENT ADDRESSED. WOUND DRESSINGS INTACT. ASSESSMENTS ARE CHARTED WENT FOR WOUND VAC WASH OUT THIS AM, TO BE TRANSFERED TO CCU AFTER PROCEDURE. REPORT CALL TO CCU YASMIN VICTOR 11AM.
--- NOTE | 2019-10-02 17:10 | NUR ---
PT CARE ASSUMED APPROX 1400. ASSESSMENTS CHARTED. ARRIVED FROM PACU ON RA BUT O2 WAS 80S. PT DENIES SOA. 2L NC PLACED AND O2 SAT BECAME NORMAL WITHIN SECONDS. VSS SINCE THEN. PT REPORTS LLE PAIN. DENIES ADEQUATE PAIN MANAGEMENT BUT AGREEABLE TO EXHAUSTING ALL PAIN MED OPTIONS AVAILABLE. OF NOW ROTATING IV AND PO SEEMS TO HAVE PT MORE COMFORTABLE THAN BEFORE. WOUND VAC TO LEFT GROIN C/D/I. LEFT COMPRESSION DSG TO STUMP C/D/I. PT'S GAVE NEW INFO FOR [employer] THAT SHE AND PT DESIRE TO RECEIVE SOURCER FROM. DR WOOD'S OFFICE WAS CALLED AND VOICEMAILE WAS LEFT WITH [employer] INFO. UPDATED. TURNING PT Q2HRS AND PRN. PT APPETITE POOR. ABD DSG AND POST GLENDA DRAIN SITE C/D/I. PT TOLERATING POC. NO DISTRESS NOTED.
[2019-10-03 01:08] VITALS: BP 148/18
[2019-10-03 03:33] VITALS: BP 158/74
[2019-10-03 05:15] LABS: HEMATOCRIT 25.2 % (42.0-52.0); HEMOGLOBIN 8.3 gm/dL (14.0-18.0); MCV 94.1 fL (80.0-100.0); PLATELET COUNT 376 thou/uL (150-400); RBC 2.68 mil/uL (4.50-6.00); RDW 14.4 % (10.5-14.5); WBC 9.6 thou/uL (4.0-11.0)
[2019-10-03 07:30] VITALS: BP 142/71
[2019-10-03 08:54] LABS: ABSOLUTE NEUTROPHILS 4.7 thou/uL (1.4-8.2); PLATELET ESTIMATE NORMAL
[2019-10-03 09:26] LABS: CALCIUM 8.5 mg/dL (8.5-10.1); CREATININE 0.7 mg/dL (0.7-1.3); MAGNESIUM 1.9 mg/dL (1.8-2.4); PHOSPHORUS 2.1 mg/dL (2.5-4.9); POTASSIUM 3.4 mmol/L (3.5-5.1)
[2019-10-03 15:30] VITALS: BP 141/76
--- NOTE | 2019-10-03 17:55 | NUR ---
ASSUMED CARE PT SHIFT CHANGE. ASSESSMENTS CHARTED. MEDS GIVEN PER NOV. PT ALERT AND ORIENTED. VSS. C/O PAIN IN STUMP--MANAGED WITH PO/ IV PAIN MEDS ORDERED. O2 SATS WNL ON 1-2L. PT WORKED WITH PT THIS SHIFT- TOLERATED VERY WELL. FECAL TUBE REMOVED PER TELEPHONE ORDER. ABRAMS REMAINS WITH ADEQUATE OUTPUT. PT TO COMMODE THIS SHIFT X1 ASSIST TOLERATING WELL. SPOUSE AT BEDSIDE THROUGHOUT SHIFT ASSISTING WITH NEEDS. WOUND VAC DRESSING DRY INTACT, HOOKED UP TO MACHINE DRAINING APPROPRIATELY. LEFT STUMP REMAINS WRAPPED IN BEV WRAP. CALL PLACED TO [facility] THIS SHIFT- CONFIRMED FOR AUTO BODY REPAIRMAN TO BE FITTER TOMORROW 10/04/19 @ 1330 BY LAI. PT AND FAMILY UPDATED. PT TURNED FREQUENTLY AND PER REQUEST. PT DENIES NEEDS AT THIS TIME. CURRENTLY RESTING IN BED, WILL CONT TO MONITOR AND FOLLOW POC.
[2019-10-03 18:00] VITALS: BP 134/77
[2019-10-03 21:00] VITALS: BP 137/73
--- NOTE | 2019-10-04 02:14 | NUR ---
ASSUMED CARE AT START OF SHIFT PT RESITNG IN BED , PAIN MEDICATION GIVEN FOR LEG PAIN , IV MEDICATION GIVEN AND TOLERATED WELL. PT UP TO BSC HAD LARGE STOOL PIVOT TO BS , DID VERY WELL. LOCOMOTIVE FIRER/FIREMAN SHOWS NSR, PT RESTING WELL THROUGHOUT HOURLY ROUNDS, WILL CONTINUE TO MONITOR AND WILL REPORT CHANGES OR ABNORMAL FINDINSG.
[2019-10-04 04:11] LABS: HEMATOCRIT 24.7 % (42.0-52.0); MCH 30.5 pg (26.0-34.0); MCHC 32.2 g/dL (28.0-37.0); MCV 94.7 fL (80.0-100.0); PLATELET COUNT 393 thou/uL (150-400); RBC 2.61 mil/uL (4.50-6.00); RDW 14.9 % (10.5-14.5); WBC 9.8 thou/uL (4.0-11.0)
[2019-10-04 04:15] LABS: CALCIUM 8.3 mg/dL (8.5-10.1); CREATININE 0.8 mg/dL (0.7-1.3); MAGNESIUM 1.9 mg/dL (1.8-2.4); PHOSPHORUS 2.6 mg/dL (2.5-4.9); POTASSIUM 3.7 mmol/L (3.5-5.1)
[2019-10-04 04:22] VITALS: BP 158/79
[2019-10-04 08:49] LABS: ABSOLUTE NEUTROPHILS 5.9 thou/uL (1.4-8.2); ANISOCYTOSIS 1+
[2019-10-04 09:00] VITALS: BP 144/76
--- NOTE | 2019-10-04 10:27 | PATH ---
[facility] [address] [place] [address] PATHOLOGY RPT PROCEDURE Name: DAYNE KNIGHT Room #: 203-P ADM IN M.R.#: [id number] Admission: 09/23/19 Date of : 54 Discharge: Report #: [id number] Path Case #: [id number] LCA Accession Number: [id number] . 01 Material submitted: . knee - LEFT ABOVE THE KNEE AMPUTATION. Modifiers: left . 01 Clinical history: . Peripheral vascular disease, CAD, ischemia . 02 Diagnosis: Leg, left, above the knee amputation: - Skin and subcutaneous tissue showing gangrenous necrosis, history of peripheral vascular disease and ischemia. - Vessels showing complete luminal occlusion by thrombi as well as calcific atherosclerosis. - Skin and subcutaneous tissue margins viable. - Bone margin grossly viable. . (IUV:mml; 10/03/2019) QLM 10/03/2019 1546 Local . 02 Electronically signed: . Melinda Sheets MD, Pathologist NPI- [id number] . 01 Gross description: . Received fresh in a red biohazard bag labeled "Dayne Knight, left above knee amputation" is a left above the knee amputation specimen measuring 54.0 cm heel to skin soft tissue margin, and 15.1 cm heel to middle toe. Protruding from the proximal margin is the femur (4.8 cm in length and 3.4 cm in diameter). The skin soft tissue margin appears viable. The skin shows extensive ischemia pink-purple discoloration extending from the distal foot up to the proximal srinivasan (greater than 10 cm from the margin). The heel shows black-purple discoloration however no ulcerative lesions are present. There is clear viscous fluid build up underneath the ischemic skin. The popliteal artery shows a partially calcified to dilated lumen filled with clot. The anterior and posterior tibial vasculature display dilated lumens. Service Greeter sections are submitted as follows: . A1: Skin soft tissue margin A2: Service Greeter skin ischemia from srinivasan ankle and heel A3: Popliteal artery following light decalcification A4: Anterior and posterior tibial arteries (SDY; 10/02/2019) SYU/SYU 10/02/2019 [address] [place] [address] PATHOLOGY RPT PROCEDURE Name: DAYNE KNIGHT Room #: 203-P ADM IN M.R.#: [id number] Admission: 09/23/19 Date of : 54 Discharge: Report #: [id number] Path Case #: [id number] . 02 Pathologist provided ICD-10: I96, I70.209, I73.9, I99.8 . 02 CPT . 442236, [id number] Specimen Comment: A courtesy copy of this report has been sent to [phone] Specimen Comment: Report sent to Specimen Comment: A duplicate report has been generated due to demographic updates. Performed at: [address], [place] [id number] MD Kristian Chatman MD Phone: [phone] Performed at: [address] [id number] MD Melinda Sheets MD Phone: [phone]
--- NOTE | 2019-10-04 12:25 | H ---
[facility] [place] [address] [place] [address] HISTORY AND PHYSICAL Name: OLIVIA KNIGHT Room #: 203-P ADM IN M.R.#: [id number] Admission: 09/23/19 Attend Phys: Che Church MD Discharge: Date of : 54 Report #: [id number] THIS REPORT FOR: //name// CC: Che Alvarenga DATE OF SERVICE: 09/23/2019 CHIEF COMPLAINT: Profuse bleeding from the wound VAC on the left femoral artery in the left groin. HISTORY OF PRESENT ILLNESS: The patient is a very pleasant 69-year-old gentleman who recently had pseudoaneurysm of the left femoral artery repaired emergently and had a wound VAC placed with a PREVENA dressing and was cleared by the Vascular Surgery team to go to the rehab on 09/21/2019. The patient informs me that he had been doing fine this morning when I visited him on the rehab unit. He was sitting upright and had finished his occupational therapy and he denied any fever, shaking chills or night sweats. He had been dealing with diarrhea, which started yesterday for which he was placed in isolation and empirically oral vancomycin and IV Flagyl was started. The patient informs me that he has had only 2 diarrheal stools and none anymore and denies any abdominal pain and nausea or vomiting associated with it. The patient informs me that he did not have any shaking chills, fever or night sweats. He just felt a little weak and tired and his hemoglobin was noted to be 7 this morning on routine labs, and therefore a type and screen and 1 unit of PRBC was ordered because he has had chronic GI bleed and acute blood loss anemia with a femoral artery pseudoaneurysm when he presented to the hospital on 09/11/2019 and at that time, he was taken emergently for pseudoaneurysm repair. The patient recently had AAA repair on 08/28/2019 with a left renal artery stent placement and a stent graft implant for aortic aneurysm. The patient informs me that he started noticing left lower extremity swelling prior to the admission on 09/11/2019 and the patient actually tolerated the procedure well and on 09/11/2019, he had an emergency repair of the pseudoaneurysm and after that the wound VAC was placed by Dr. Gramajo. Interposition graft was placed at that time and a femoral thrombectomy was performed to remove all the clots from the superficial femoral artery and homeostasis was achieved. The patient was recommended to be only on Plavix after that and aspirin was stopped. The patient at that time also had acute renal failure; however, with hydration and fluid resuscitation, the patient recovered from the acute renal insufficiency and GFR had normalized this morning other than fatigue and shortness of breath with therapy only. The patient was okay and felt reasonably okay; however, then at approximately 1:15, the patient's nurse had gotten PRBC to transfuse for the patient and she had transferred the patient from chair to bed and suddenly the wound VAC filled up completely and alarm went off and the patient's nurse noted that the patient had profuse bleeding in the groin. At that time, she applied pressure and called for rapid response team. At that time when she did her [facility] [address] [place] [address] HISTORY AND PHYSICAL Name: OLIVIA KNIGHT Room #: 203-P [facility] IN M.R.#: [id number] Admission: 09/23/19 Attend Phys: Che Church MD Discharge: Date of : 54 Report #: [id number] initial evaluation, the patient had heart rate of 65, blood pressure 131/68, pulse oximeter 97% on room air and temperature was 98.4. However, right after that the patient started having shaking chills and bleeding definitely was controlled with the pressure, and then ICU nurse and rapid response team was called and the patient was then transferred to ICU, the 1 unit of blood that had been ordered earlier today, was given a wide open and the patient got second unit of PRBC in the ICU and 1 unit of FFP was also given as the patient had been on Plavix for his recurrent thromboembolic event and severe peripheral arterial disease and vascular disease. In the ICU, the patient continued to have shaking chills and had a fever of 38.3 and blood cultures were drawn and antibiotics were started. With the pressure, the bleeding was controlled and fentanyl was given for back pain and Dr. Gramajo is about to take the patient to the operating room as I am doing this dictation. PAST MEDICAL HISTORY: Significant for: 1. Hypertension. 2. Peripheral arterial disease. 3. Renal artery stenosis. 4. Carotid artery stenosis. 5. Duodenal ulcer. 6. History of popliteal aneurysm. 7. Clostridium difficile diarrhea. PAST SURGICAL HISTORY: Significant for: 1. AAA repair for the aortic aneurysm. 2. Renal artery stent. 3. Left anterior descending coronary artery stent placed in 2014. 4. Popliteal pseudoaneurysm repair. FAMILY HISTORY: The patient has a positive family history of atherosclerotic disease. PERSONAL AND SOCIAL HISTORY: The patient has been an active smoker. He informs me that he has not smoked since he has been admitted to the hospital and he does definitely plan to quit smoking from now onwards. He denies any alcohol use and denies any recreational drug use. He lives at home with his , Mrs. Dary Knight as the emergency contact as well as the durable power of personal injury attorney for [facility]. REVIEW OF SYSTEMS: Positive for shaking chills started at 1:00 p.m. today and fever started this afternoon at 1:30. The patient denies any night sweats and denies any anorexia, nausea, vomiting or diarrhea. RESPIRATORY: Denies any cough, shortness of breath or chest pain, pleuritic or nonpleuritic. The patient denies any chest pressure. GASTROINTESTINAL: Positive only for diarrhea, but negative for nausea, vomiting, constipation, any melena, hematochezia or abdominal pain. [facility] [address] [place] [address] HISTORY AND PHYSICAL Name: OLIVIA KNIGHT Room #: 203-P [facility] IN M.R.#: [id number] Admission: 09/23/19 Attend Phys: Che Church MD Discharge: Date of : 54 Report #: [id number] GENITOURINARY: The patient denied any dysuria or hematuria. MUSCULOSKELETAL: The patient has chronic back pain and he did have worsening of his back pain while the bleeding was being controlled with pressure in the left groin. SKIN: The patient has chronic skin changes from the venous stasis in the left lower extremity and also had left lower extremity edema for past 2-3 weeks approximately. NEUROLOGICAL: Review of system was negative for any focal or localized weakness or numbness of any part of the body and he also did not have any difficulty with speech at any time and did not have any TIA or stroke symptoms. The patient denied any dizziness or lightheadedness all morning and this was more of a sudden onset bleeding when the patient transferred from chair to the bed and had not done any vigorous physical therapy today either. The patient had just an occupational therapy this morning. ALLERGIES: The patient has no known drug allergies. CURRENT MEDICATIONS: This morning were: 1. Oral vancomycin 125 mg p.o. q.i.d. 2. Metronidazole 500 mg p.o. q. 8 hours. 3. Aspirin 81 mg daily. 4. Celexa 20 mg daily. 5. Plavix 75 mg daily. 6. Coenzyme Q10. 7. Hydrochlorothiazide. 8. Lisinopril. 9. Spironolactone. 10. Famotidine. PHYSICAL EXAMINATION: In the ICU: VITAL SIGNS: The patient had a most recent blood pressure of 127/80. The patient has fever with shaking chills and the patient had a respiration of 22, on 100% nonrebreather with sats 99-100% and was not in any acute cardiopulmonary distress, but was looking a little pale and has had 2 units of PRBC transfusion already. GENERAL: The patient's at the bedside and the ICU nurse with one with the pressure in the groin area at the bleeding site and a second nurse was infusing antibiotics. HEENT: Normocephalic, atraumatic. Pupils equally round, reactive to light. Extraocular muscle movement intact. Conjunctivae pale. Sclerae nonicteric. Oropharynx was clear. Mucous membranes moist. NECK: Supple, no JVD, no lymphadenopathy. HEART: S1, S2, regular. Tachycardia noted. LUNGS: Clear to auscultation bilaterally without any chest wall tenderness or any crackles or wheezes noted. ABDOMEN: Soft, mild epigastric discomfort, but no point tenderness and the [facility] [address] [place] [address] HISTORY AND PHYSICAL Name: OLIVIA KNIGHT Room #: 203-P [facility] IN M.R.#: [id number] Admission: 09/23/19 Attend Phys: Che Church MD Discharge: Date of : 54 Report #: [id number] patient has a left lower quadrant with a large bruise that had already been present from prior surgery, but the incision and the ash were intact, but the bleeding was noted a little bit above mid inguinal point and pressure wire had been applied continuously. The patient had pedal pulses present in the right lower extremity. Left lower extremity: It was hard to palpate with 2+ pitting edema in the left lower extremity. NEUROLOGIC: Nonfocal. LABORATORY DATA: The patient has a WBC count elevated at 21,100, hemoglobin 8.3, hematocrit 26.1 and platelet count 307. Blood cultures have been drawn and chemistries pending. However, this morning earlier today, the patient had sodium of 134, potassium 3.9, chloride 101, bicarbonate 27, BUN 15, and creatinine 0.9. An estimated GFR was 84 with a glucose of 96. The patient had magnesium of 1.9. ASSESSMENT AND PLAN: 1. Acute bleeding from the pseudoaneurysm. The patient is being taken to the OR by Dr. Gramajo as we speak for repair. 2. Sepsis with possible infected graft: high fever & chills, C. Diff inf. started on IV vancomycin and cefepime. Flagyl has already been on board and so we will continue broad-spectrum antibiotics along enteral vancomycin for Clostridium difficile infection as well. 3. Anemia, multifactorial. Hemoglobin was 7 this morning; however, after bleeding, the patient has received 2 units of a total of PRBC and the third unit is on the way and the patient has received 1 unit of FFP to prevent further bleeding and we will monitor H and H closely and we will replace if the hemoglobin is less than 7. The patient will need a portable chest x-ray after he is back from the OR and will give IV Lasix depending for the fluid overload as expected with the PRBC transfusion. 4. Hypertension. The patient has been pretty well controlled on lisinopril and hydrochlorothiazide and spironolactone. However, at this time, we will hold all those and we will leave on hydralazine IV q. 6 hours p.r.n. as needed as oral medications are going to be on hold. 5. Duodenal ulcer. The patient is on Pepcid 20 mg IV b.i.d. and at this time, I will continue the same. There was a drug interaction between Protonix and Plavix and therefore, it has not been restarted. So we will continue Pepcid 20 b.i.d. for now. 6. Deep venous thrombosis prophylaxis: We will just use pneumatic compression devices at this time and gastrointestinal prophylaxis with Pepcid. 7. Chronic obstructive pulmonary disease [address] [address] HISTORY AND PHYSICAL Name: OLIVIA KNIGHT Room #: 203-P [facility] IN M.R.#: [id number] Admission: 09/23/19 Attend Phys: Che Church MD Discharge: Date of : 54 Report #: [id number] I would go ahead and resume DuoNeb breathing treatment At this time, the patient is clinically stable with cardiopulmonary status and Dr. Martin is at the bedside, ready to take the patient to the OR. 8. Severe peripheral vascular disease with prior h/o popliteal artery aneurysm and now with femoral artery aneurysm s/p repair but now has bleeding complication and infection. 9. CAD; stable Plan of care was discussed with Dr. Gramajo as well as the patient's , Mrs. Dary Knight as well as ICU nursing team and will be available to work with the nursing team for stabilization of the patient. The 35-40 minutes of critical care time was spent with this patient. <ELECTRONICALLY SIGNED> By: Che Church MD 10/04/19 1225 1507 [id number] Che Church MD /nt
[2019-10-04 12:30] VITALS: BP 130/75
--- NOTE | 2019-10-04 14:56 | NUR ---
tenative plan initally for transfer to acute rehab if ok with CTS. CTS reports patient not stable for acute rehab at this time. Briefly discussed LTAC with and CTS. At this time [facility] following and await direction of phys for dc planning.
[2019-10-04 18:00] VITALS: BP 116/70
--- NOTE | 2019-10-04 18:26 | NUR ---
ASSUMED CARE OF PT AT SHIFT CHANGE. ASSESSMENTS CHARTED. MEDS GIVEN PER NOV. VSS. PT A&OX4. C/O PAIN TREATED WITH PO AND IV MEDS WITH PARTIAL RELIEF. NO SIGNS OF BLEEDING. STUMP BULLET SWAGING MACHINE ADJUSTER WAS NOT PLACE D/T PROXIMIY OF WOUND VAC. PT WORKED WELL WITH PT/OT, PIVOTING TO BSC. PLAN TO STAY ON CCU UNTIL DR. GIANFRANCO KIM TO REHAB. WOUND VAC TO BE CHANGED TOMORROW. WILL CONTINUE TO MONITOR AND FOLLOW POC.
[2019-10-04 19:17] VITALS: BP 139/75
--- NOTE | 2019-10-05 01:32 | NUR ---
PATIENT ASSESSED AND IS ALERT X 4. SKIN WARM AND DRY. IS DROWSEY AT TIMES. PAIN MEDICATION GIVEN PER REQUEST FOR LEFT BACK PAIN ABRAMS INTACT WITH YELLOW IN COLOR. ASSIST OF 1 PERSON TO BSC , STILL HAVING LOOSE STOOLS. IS IN ISOLATION FOR C-DIFF. HAS A AKA. ALSO HAVING PHAMTOM PAIN. PT/OT ON THE CASE. HAS A WOUND VAC WORKING WELL CONNECTED TO HIS LEFT BACK AREA. DR WINKLER WILL CHANGE WOUND VAC IN AM.02 SAT AT 2LNC. DENIES ANY SOA. TELE- SHOWS NSR. LEFT UPPER ARM PICC FLUSHES WELL. STUMP ON LEFT LEG HAS A BEV WRAP. TAKING DIET WELL,. TAKING PAIN MED AND PAIN SHOTS TO KEEP PAIN UNDER CONTROL. TURNS SELF IN BED. NO OTHER WOUNDS PRESENT. IS FORGETFUL AT TIMES. CONT PLAN OF CARE. IS A FULL CODE.
[2019-10-05 07:25] VITALS: BP 143/68
[2019-10-05 11:15] VITALS: BP 151/79
[2019-10-05 15:45] VITALS: BP 153/86
--- NOTE | 2019-10-05 16:25 | NUR ---
CTS sp with 5N RN practioner today. CTS, DR Ruelas and DR Ellison all sp today at bedside. Wound care to cont to do wound care dsg on 5N. patient ready for dc to 5N. Updated 5N liason who sp with Rn practioner who plans admit today. aware at bedside. updated Rn 5N to call with room assisgnment no further needs.
[2019-10-05] MEDS ORDERED: FIRVANQ50 MG/1 ML PO (16:59)
[2019-10-05] MEDS ORDERED: MELATONIN5 M1 PO (17:00)
[2019-10-05] MEDS ORDERED: NEURONTIN 300300 M1 PO (17:00)
[2019-10-05] MEDS ORDERED: HYDROCODON-ACE1 EAC7 PO (17:00)
[2019-10-05] MEDS ORDERED: TOBRAMYCIN60 MG/50 M IV (17:02)
[2019-10-05] MEDS ORDERED: ZOSYN 4.54.5 GM/101 IV (17:03)
--- NOTE | 2019-10-05 17:31 | NUR ---
ASSUMED CARE OF PT AT SHIFT CHANGE. ASSESSMENTS CHARTED. MEDS GIVEN PER NOV. VSS. PT A&OX4. C/O PAIN TREATED WITH PO AND IV MEDS WITH PARTIAL RELIEF. WORKED WELL WITH PT&OT. X1 ASSIST TO BSC, TURNS/MOVES SELF IN BED. WOUND VAC AND STUMP DRESSING CHANGED TODAY. IV AND PO ABX CONTINUE. AND BEDSIDE. PLAN TO MOVE TO 5N THIS EVENING. WILL CONTINUE AND MONITOR AND FOLLOW POC.
== END 2019-10-05 19:52 | DRG 239 ==
LOC: ICU 14:10 → 2N 10-02 11:22
PROVIDERS: Anesthesiology; Internal Medicine; Internal Medicine Pulmonary Disease; Nurse Practitioner Acute Care; Nurse Practitioner Family; Orthopaedic Surgery Sports Medicine; Pediatrics; Physician Assistant; ADMIT Internal Medicine
PROC: 04LL3ZZ Occlusion of Left Femoral Artery, Percutaneous Approach (ICD-10-PCS; 2019-09-23)
PROC: 0YPB0JZ Removal of Synthetic Substitute from Left Lower Extremity, Open Approach (ICD-10-PCS; 2019-09-23)
PROC: 0Y6G0ZZ Detachment at Left Knee Region, Open Approach (ICD-10-PCS; principal; 2019-09-25)
PROC: 30233N1 Transfusion of Nonautologous Red Blood Cells into Peripheral Vein, Percutaneous Approach (ICD-10-PCS; principal; 2019-09-25)
PROC: 04PY0DZ Removal of Intraluminal Device from Lower Artery, Open Approach (ICD-10-PCS; principal; 2019-09-25)
PROC: 5A1945Z Respiratory Ventilation, 24-96 Consecutive Hours (ICD-10-PCS; principal; 2019-09-25)
PROC: 2W03X6Z Change Pressure Dressing on Abdominal Wall (ICD-10-PCS; 2019-09-26)
PROC: 2W03X6Z Change Pressure Dressing on Abdominal Wall (ICD-10-PCS; 2019-09-29)
PROC: 2W0MX6Z Change Pressure Dressing on Left Lower Extremity (ICD-10-PCS; 2019-10-02)
DX: T82.7XXA Infection and inflammatory reaction due to other cardiac and vascular devices, implants and grafts, initial encounter (principal); A41.9 Sepsis, unspecified organism; J96.01 Acute respiratory failure with hypoxia; E43 Unspecified severe protein-calorie malnutrition; T81.718A Complication of other artery following a procedure, not elsewhere classified, initial encounter; D62 Acute posthemorrhagic anemia; A04.72 Enterocolitis due to Clostridium difficile, not specified as recurrent; N17.9 Acute kidney failure, unspecified; T82.838A Hemorrhage due to vascular prosthetic devices, implants and grafts, initial encounter; I73.9 Peripheral vascular disease, unspecified; I70.1 Atherosclerosis of renal artery; I65.29 Occlusion and stenosis of unspecified carotid artery; F17.200 Nicotine dependence, unspecified, uncomplicated; K26.9 Duodenal ulcer, unspecified as acute or chronic, without hemorrhage or perforation; J44.9 Chronic obstructive pulmonary disease, unspecified; I25.10 Atherosclerotic heart disease of native coronary artery without angina pectoris; M62.262 Nontraumatic ischemic infarction of muscle, left lower leg; E78.5 Hyperlipidemia, unspecified; F32.9 Major depressive disorder, single episode, unspecified; R19.7 Diarrhea, unspecified; I12.9 Hypertensive chronic kidney disease with stage 1 through stage 4 chronic kidney disease, or unspecified chronic kidney disease; Y84.9 Medical procedure, unspecified as the cause of abnormal reaction of the patient, or of later complication, without mention of misadventure at the time of the procedure; N18.9 Chronic kidney disease, unspecified; E87.6 Hypokalemia; Z82.49 Family history of ischemic heart disease and other diseases of the circulatory system; Z95.828 Presence of other vascular implants and grafts; Z95.5 Presence of coronary angioplasty implant and graft; Y83.8 Other surgical procedures as the cause of abnormal reaction of the patient, or of later complication, without mention of misadventure at the time of the procedure; Y92.89 Other specified places as the place of occurrence of the external cause
CPT/HCPCS: 10078; 10081; 27000; 47375; 48888; 50010; 50101; 50366; 50386; 50643; 51412; 51771; 53000; 56524; 56525; 56526; 56527; 56528; 56668; 56760; 57091; 57092; 57093; 57103; 57180; 57188; 57189; 62110; 62900; 70005

== ENCOUNTER 2019-10-05 17:00 | Inpatient (IN) | payer OTHER ==
[~2019-10-05] VITALS: Ht 172.7 cm; Wt 71.8 kg
--- NOTE | ~2019-10-05 | HC ---
[facility] [place] [address] CONSULTATION Name: OLIVIA RICHMOND Room #: 504-1 [facility] [place] ..#: [id number] Admission: 10/05/19 Attend Phys: Mike Garvey MD Discharge: Date of : 54 Report #: [id number] THIS REPORT FOR: //name// CC: Mike Alvarenga DATE OF SERVICE: 10/14/2019 BEHAVIORAL STATUS EXAM PROCESS MAINTENANCE TECHNICIAN: Dre Hastings, PhD CLINICAL PRESENTATION: The patient is a 69-year-old white male admitted to the inpatient rehabilitation unit for comprehensive inpatient rehabilitation program to improve functional mobility, activities of daily living and self-care and mental status secondary to deficits from left lower extremity ischemia, status post [id number] amputation on 10/01/2019. The patient's diagnoses include medical complexity with generalized debility, left femoral pseudoaneurysm repair, acute blood loss anemia, status post transfusions, acute hypoxic respiratory failure, status post extubation, C. diff, electrolyte abnormalities, severe protein-calorie malnutrition, abdominal aortic aneurysm, status post femoral endarterectomy on 08/28/19, recent duodenal ulcer with bleed and hypertension. A complete description of his medical condition and history along with medications can be found in his medical record. Neuropsychological consultation was requested to provide assistance in the assessment of cognitive and emotional status and to provide recommendations and services. Prior to this most recent medical event, he was living independently with his . He is for the second time. He has one stepson and one biological son. He reports his family is supportive. The patient is a high school graduate. 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 The patient reports having retired about 2 years ago. He does not report a prior history of alcohol or drug abuse. The patient reports his mood is generally positive. TECHNIQUES UTILIZED: Clinical interview, review of medical records, staff consultation and behavioral observation, mini mental status exam 2 standard version, clock drawing and brief verbal fluency assessment and brief abstract reasoning assessment and clock drawing. EXAMINATION FINDINGS: The patient was alert and cooperative with the assessment. He accurately described aspects of his medical condition and purpose of current treatment. However, he is amnestic for various procedures and for the reason of his hospitalization. He now reports dealing with his missing leg is his primary concern. He does not remember the extent of his medical condition that required the amputation. He does not present with [address] [address] CONSULTATION Name: OLIVIA RICHMOND Room #: 504-1 [facility] [place] [facility]#: [id number] Admission: 10/05/19 Attend Phys: Mike Garvey MD Discharge: Date of : 54 Report #: [id number] aphasia. His thoughts are logical and goal oriented. There is no evidence of thought disorder. He describes his symptoms to include memory and feeling restless and fidgety. He denies depression or anxiety. He does report having had a past treatment for depression. He does not report difficulty with word finding, anxiety, sleep or appetite. As indicated, he does get antsy and had feeling somewhat restless and fidgety for having remained in his bed. Performance on the MMSE 2 brief version is extremely low with a raw score of 12, T score of 27 and percentile rank of 1. He was 3/3 for initial registration, 4/5 for orientation to time, 5/[address] and 0/3 for immediate recall of 3 items after a brief time delay and distraction. His performance return to the average range of functioning on the mini mental status exam 2 standard version with a raw score of 26 of 30, which is a T score of 45. The patient was 5/5 for serial sevens, 2/2 for naming, 1/1 for repetition, 3/3 for comprehension. He could read and follow single command, write a sentence and copy a simple geometric design. Clock drawing was within normal limits. Letter fluency was in the high average range with a raw score of single letter 16 and T score of 60, which is at the 84th percentile. Abbreviated category fluency using animals was in the 50th percentile with a raw score of 19 and a T score of 50. Brief abstract reasoning test was within normal limits with a raw score of 7/8. The patient is alert and oriented. He is presenting with difficulty in immediate recall. Other aspects of executive functioning and visual spatial construction are within normal limits. DIAGNOSTIC IMPRESSION: Mild neurocognitive disorder, unspecified, without behavior disorder. RECOMMENDATIONS: Continued use of rehabilitation strategies to assist in compensation for areas of deficit. The patient may benefit from more thorough neuropsych assessment following discharge to clarify the severity of cognitive symptoms. While the patient denies feeling anxious or depressed he does appear somewhat anxious regarding his medical well-being. The use of relaxation techniques along with support and reassurance will also be of benefit to assist in overall adjustment. Educational information about the steps necessary to improve independence will also help self confidence. [facility] [address] [place] [address] CONSULTATION Name: OLIVIA RICHMOND Room #: 504-1 ADM IN M.R.#: [id number] Admission: 10/05/19 Attend Phys: Mike Garvey MD Discharge: Date of : 54 Report #: [id number] Thank you very much for allowing me to provide the consultation on this patient. By: [id number] Dre Hastings, PhD /nt
[~2019-10-05 17:00] MED LIST changes: +FIRVANQ50 MG/1 ML PO; +HYDROCODON-ACE1 EAC7 PO; +MELATONIN5 M1 PO; +NEURONTIN 300300 M1 PO
[2019-10-05] MEDS ORDERED: TOBRAMYCIN60 MG/50 M IV (17:02)
[2019-10-05] MEDS ORDERED: ZOSYN 4.54.5 GM/101 IV (17:03)
[2019-10-05 20:00] VITALS: BP 120/80
--- NOTE | 2019-10-06 02:32 | NUR ---
PT ADMITTED TO 5N THIS EVENING. SUPPORTIVE AT BEDSIDE. ADMIT HX AND ASSESSMENT COMPLETED. PT TOO TIRED TO SIGN CONSENTS. WILL ASK HIM AGAIN IN THE AM. DSG ON L AKA DRY AND INTACT. L GROIN SITE WITH WOUND VAC WNL. ABRAMS DRAINING MODERATE AMOUNT OF YELLOW URINE. IV ANTIBIOTICS RUNNING. SPECIAL CONTACT ISOLATION FOLLOWED. ASST WITH REPOSITION USING PILLOWS FOR COMFORT. LIQUID STOOL AT HS IN TOILET. 2 MAX ASST AT THIS TIME. SLEEPING WELL. WILL CONTINUE TO MONITOR FREQUENTLY.
[2019-10-06 05:47] LABS: HEMATOCRIT 25.9 % (42.0-52.0); HEMOGLOBIN 8.4 gm/dL (14.0-18.0); MCH 30.8 pg (26.0-34.0); MCHC 32.7 g/dL (28.0-37.0); MCV 94.3 fL (80.0-100.0); RBC 2.74 mil/uL (4.50-6.00); RDW 14.6 % (10.5-14.5); WBC 8.8 thou/uL (4.0-11.0)
[2019-10-06 05:58] LABS: CALCIUM 8.1 mg/dL (8.5-10.1); CREATININE 0.7 mg/dL (0.7-1.3); POTASSIUM 3.3 mmol/L (3.5-5.1)
--- NOTE | 2019-10-06 07:00 | NUR ---
chart review, pt up in bed, lights off with eyes open. intro to cm, team meeting, and transition of care. pt was on acute rehab prior to having to go back to acute hospital. he is a & o x 3, quiet, able to make his needs know and pleasant. he has new left bka. " live home with gretel, goes by [facility]. have steps to enter home and stairs inside home. independent prior to hospital. no dme in past, no home health or rehab in past prior to admit." prashant and chart. ot going to visit pt, he on isolation precaution. will cont following as needed for dc needs.
[2019-10-06 09:00] VITALS: BP 155/76
[2019-10-06 20:10] VITALS: BP 165/83
--- NOTE | 2019-10-06 20:38 | NUR ---
ASSUMED CARE OF PT AT 0715. PT IS A&OX3, FORGETFUL, EASILY FATIGUED, AND VITAL SIGNS ARE STABLE. SPECIAL CONTACT ISOLATION FOR POSSITIVE C-DIFF, SEVERAL LOOSE STOOLS THIS SHIFT. ABRAMS CATHETER IN PLACE, DRAINING ADEQUATELY. WOUND VAC TO LEFT GROIN INTACT AND DRAINING APPROPRIATELY, DRESSING TO LEFT AKA CHANGED PER ORDERS, SITE WELL APPROXIMATED WITH IMAN, PINK, MINIMAL DRAINAGE ON DRESSING. ALFREDO DOUBLE LUMEN PICC IN PLACE, SITE WNL, DRESSING C/D/I, POSITIONAL DIFFICULTIES WHEN FLUSHING AND ASPIRATING, IV TEAM NOTIFIED. FALL PRECAUTIONS IN PLACE AND NURSING WILL CONTINUE TO MONITOR.
--- NOTE | 2019-10-07 01:05 | NUR ---
ASSUMED CARE AT APPROX 1900 EVENING 10/06. PT LYING IN BED WITH HEAD OF BED ELEVATED RESTING AND VISITING WITH SPOUSE AT BEDSIDE. PT PLEASANT AND COOPERATIVE SOMEWHAT FORGETFUL. PT ASSISTED INTO W/C TO GO TO BATHROOM AND HAVE BM ON TOILET. ABRAMS TO DD WITH YELLOW DRAINAGE TO BAG. WOUND VAC DRESSING IN PLACE TO LEFT GROIN AND PUMP IN PLACE FUNCTIONING PROPERLY. PT TOOK HS MEDS WITH WATER TOLERATING WELL. LEFT AKA WRAPPED WITH BEV WRAP AND KERLIX C/D/I. PT GIVEN PAIN MED ORDERED. PT IN ISOLATION FOR CDIFF. HERE EARLIER VERY SUPPORTIVE ASSISTING WITH CARE. BED ALARM ON AND CALL LIGHT IN REACH. WILL CONTINUE TO MONITOR.
--- NOTE | 2019-10-07 18:28 | NUR ---
ASSUMED CARE OF PT AT 0700. PT IS A&OX4 AND VITAL SIGNS ARE STABLE. PT REPORTS PAIN IN HIS LLE WHICH WAS MANAGED WITH PO MEDICAITONS, PARTICIPATED IN SCHEDULED THERAPIES. WOUND VAC TO LEFT GROIN, DRESSING INTACT AND DRAINING APPROPRIATELY. LEFT AKA DRESSING CHANGED PER ORDERS, SITE WELL APPROXIMATED WITH IMAN, MINIMAL RED DRAINAGE ON DRESSING. ABRAMS CATHETER IN PLACE AND DRAINING APPROPRIATLEY, URINE CLEAR AND YELLOW. PICC TO LUE REMOVED DUE TO NOT FUNCTIONING AND IV TO LUE PLACED. PER DR. RICO PLAN IS TO HAVE CONTINUED 3 WEEKS OF ANTIBIOTICS AND WOULD LIKE A NEW PICC PLACED WHEN POSSIBLE. POTASSIUM AND CALCIUM REPLACED PO THIS SHIFT. SPECIAL CONTACT PRECAUTIONS IN PLACE FOR POSITIVE C-DIFF. CALLS APPROPRIATELY FOR ASSISTANCE, FALL PRECAUTIONS IN PLACE AND NURSING WILL CONTINUE TO MONITOR.
[2019-10-07 19:31] VITALS: BP 141/68
--- NOTE | 2019-10-07 23:09 | NUR ---
CHANGED CANISTER TO WOUND VAC WITHOUT DIFFICULTY. APPROX 350CC ROSALES/PINKISH FLUID TO CANISTER. DEPOSITED CANISTER IN BIOHAZARD CONTAINER IN UTILITY ROOM.
--- NOTE | 2019-10-08 03:09 | NUR ---
ASSUMED CARE AT APPROX 1900 EVENING 10/07. PT SITTING UP IN RECLINER AT CHANGE OF SHIFT RESTING AND VISITING WITH AT BEDSIDE. ABRAMS TO DD WITH YELLOW URINE TO BAG. WOUND VAC IN PLACE WITH CANISTER CHANGED WITHOUT DIFFICULTY. PT ASSISTED INTO BED AT HS AND TOOK HS MEDS WITH WATER. BED ALARM ON AND CALL LIGHT IN REACH. PT APPEARS TO BE SLEEPING SOUNDLY WITH HOURLY ROUNDING CHECKS. WILL CONTINUE TO MONITOR.
[2019-10-08 05:16] LABS: HEMOGLOBIN 9.2 gm/dL (14.0-18.0); MCH 31.1 pg (26.0-34.0); MCHC 32.9 g/dL (28.0-37.0); MCV 94.5 fL (80.0-100.0); RBC 2.96 mil/uL (4.50-6.00); RDW 15.8 % (10.5-14.5); WBC 8.7 thou/uL (4.0-11.0)
[2019-10-08 05:27] LABS: CREATININE 0.8 mg/dL (0.7-1.3); POTASSIUM 3.7 mmol/L (3.5-5.1)
[2019-10-08 08:25] VITALS: BP 149/86
--- NOTE | 2019-10-08 09:49 | NUR ---
ASSUMED CARE AT 0700. PATIENT IS ALERT AND ORIENTEDX4. PATIENT IS WEAK. PATIENT STUBBS'S, STUDY DIRECTOR ARE EQUAL. LUNGS ARE CLEAR AND DEMINISHED. 02 AT 2L PER N/C. HAS NASAL CONGESTION. PATIENT HAS NORMAL SALINE SPRAY PRN FOR THAT. PATIENT TAKES HER MEDS IN APPLESAUCE. ABD IS SOFT WITH BSX4. UP IN THE CHAIR FOR MEALS. FALL AND SAFETY PROTOCOLS IN PLACE. DENIES ANY PAIN AT THIS TIME. CONTINUES TO PROGRESS SLOWLY TOWARDS D/C GOALS. WILL CONTINUE TO MONITER.
--- NOTE | 2019-10-08 09:54 | NUR ---
ASSUMED CARE AT 0700. PATIENT IS ALERT AND ORIENTED X4,BUT FORGETFUL AT TIMES. PATIENT STUBBS'S, RETAIL CUSTODIAL ASSOCIATE ARE EQUAL. LUNGS ARE CLEAR. ABD IS SOFT WITH BSX4. PATIENT UP TO THE BR WITH HIS WALKER AND GAIT BELT AND ASSIST OF 1 STAFF. PATIENT HAS WOUND VAC TO HIS LEFT GROIN. PATIENT HAS LEFT AKA. DRESSING CHANGED. IMAN DRY AND INTACT. TELPHA APPLIED. UP IN THE CHAIR FOR MEALS. PATIENT CONTINUES IN ISOLATION FOR C-DIFF. PATIENT HAS S.L. IN HIS RIGHT AC. PATIENT CONTINUES ON ABT Q 6 HRS. NO ADVERSE AFFECTS NOTED AT THIS TIME. UP WITH HIS WALKER WITH P.T. FALL AND SAFETY PROTOCOLS IN PLACE. DENIES PAIN AT THIS TIME. WILL CONTINUE TO MONITER.
[2019-10-08 20:00] VITALS: BP 139/77
--- NOTE | 2019-10-08 23:32 | NUR ---
PT ASSESSMENT COMPETED AND VSS. MEDS GIVEN ORDERED AND WELL TOLERATED. FALL PRECAUTIONS IN PLACE. UP TO THE BATHROOM WITH ASST/GAIT/WALKER. SUPPORTIVE AT BEDSIDE. PT UP IN WHEELCHAIR MOVING AROUND UNIT WITH . SPECIAL CONTACT ISOLATION FOLLOWED. DSG IS INTACT AT THIS TIME AFTER FALLING OFF DURING SHIFT. L GROIN DSG AND WOUND VAC INTACT AND WNL. ASST WITH REPOSITION FOR COMFORT. PRN PAIN MEDICATION HELPFUL FOR LEFT STUMP PAIN. SLEEPING WELL. WILL CONTINUE TO MONITOR FREQUENTLY.
[2019-10-09 06:12] LABS: HEMATOCRIT 28.8 % (42.0-52.0); HEMOGLOBIN 9.4 gm/dL (14.0-18.0); MCH 31.1 pg (26.0-34.0); MCHC 32.8 g/dL (28.0-37.0); PLATELET COUNT 448 thou/uL (150-400); RBC 3.03 mil/uL (4.50-6.00); RDW 15.8 % (10.5-14.5); WBC 8.8 thou/uL (4.0-11.0)
[2019-10-09 06:27] LABS: ALBUMIN 2.1 g/dL (3.4-5.0); CALCIUM 8.9 mg/dL (8.5-10.1); CREATININE 0.9 mg/dL (0.7-1.3); POTASSIUM 3.5 mmol/L (3.5-5.1); TOTAL BILIRUBIN 0.3 mg/dL (<0.1-1.0); TOTAL PROTEIN 6.4 g/dL (6.4-8.2)
[2019-10-09 07:09] LABS: ABSOLUTE NEUTROPHILS 4.6 thou/uL (1.4-8.2); ANISOCYTOSIS 1+
[2019-10-09 08:30] VITALS: BP 118/82
--- NOTE | 2019-10-09 15:55 | NUR ---
RECEIVED PT'S CARE AROUND 0720; PT. ON BED; AOX4; DURING ASSESSMENT NO C/O PAIN; ABLE TO SWALLOW PILLS OK; DURING ROUNDING DR. ALONSO REQUESTED TO TALK WITH HOSPITALIST TO CHECK IF POSSIBLE D/C ABRAMS; DR. RICO NOTIFIED; ORDERS RECEIVED; D/C ABRAMS AT 1300; PT. EDUCATED ABOUT USING URINAL WHEN VOID; ST. UNDERSTANDING; IV D/C; NOT WORKING; NEW IV STARTED OVER R. FOREARM; AFTER ST; PT. IN RESTHROOM; IV PULLED OUT; NEW IV STARTED OVER L' FOREARM; DRESSING CHANGE PERFORMED; CHECK CHARTING; WOUND DRESSING CHANGED BY WOUND CARE NURSE; ASSESSMENT CHARGED; FOLLOWING POC; WILL PASS ON REPORT;
[2019-10-09 19:10] VITALS: BP 138/79
--- NOTE | 2019-10-10 00:21 | NUR ---
PT ASSESSMENT COMPLETED AND VSS. MEDS GIVEN ORDERED AND WELL TOLERATED. PRN PAIN MEDICATION WORKING WELL FOR POST SURGICAL PAIN. SUPPORTIVE AT BEDSIDE. PT UP MOVING AROUND THE UNIT THIS EVENING IN HIS WHEELCHAIR WITH AT HIS SIDE. PT VOIDING WELL AFTER ABRAMS D/C. STUMP DRESSING CAME OFF AT CHANGE OF SHIFT. PLACED NEW L AKA DRESSING. WOUND VAC ALARMING AIR LEAK. CHECKED SITE WHICH LOOKED FINE. FOUND SMALL LEAK IN GROIN AREA. PUSHED DRESSING BACK IN PLACE AND MACHINE WORKING FINE WNL AT THIS TIME. ASST WITH REPOSITION. 1-2 ASST TRANSFER TO THE BATHROOM. 0 BM SO FAR DURING SHIFT. SLEEPING AT THIS TIME. WILL CONTINUE TO MONITOR FREQUENTLY. SPECAIL CONTACT ISOLATION FOLLOWED.
[2019-10-10 07:30] VITALS: BP 146/84
--- NOTE | 2019-10-10 14:19 | NUR ---
team meeting, recommendation: wheel chair vs walker. la ( pt, ot, nursing for wound care has wound vac,) assistance with bills and pills.
--- NOTE | 2019-10-10 20:06 | NUR ---
ASSUMED CARE AT 0700, PT A&O X 4, FORGETFUL AT TIMES. FAMILY AT BEDSIDE. VS STABLE, O2 ON RA. CONTACT ISO FOR C-DIFF CONTINUED. IV TO LFA, ON ZOSYN BID. PT DEMIES PAIN OR DISCOMFORT, TOLERATED THERAPT, STANDBY ASSIST X 1 WITH WALKER AND W/C. WOUMD CARE TO L AKA DONE, NO REDNESS, SWELLING AND IMAN IN PLACE. CONTINENT OF BM AND URINE, USES URINAL AND BR, LAST BM TODAY;10/10/19. SITTING IN RECLINER, CALL LIGHT WITHIN REACH, WILL CONTINUE TO MONITOR PER POC.
[2019-10-10 20:10] VITALS: BP 162/85
--- NOTE | 2019-10-11 03:49 | NUR ---
UP TO BATHROOM WITH ASSIST, STAFF MANAGING WOUND VAC IN ORDER TO KEEP IT IN PLACE. LEFT AKA DRESSING OFF IN THE PROCESS OF PULLING SHORTS UP, REPLACED AT 0200 WITH XEROFORM,ABD,KERLIX, AND BEV WRAP OVER INTACT STAPLE LINE. PLEASANT
[2019-10-11 20:00] VITALS: BP 156/76
--- NOTE | 2019-10-11 20:02 | NUR ---
ASSUMED CARE OF PT AT 0715. PT IS A&OX4 AND VITAL SIGNS ARE STABLE. PT DENIES PAIN AND PARTICIPATED IN SCHEDULED THERAPIES. SPECIAL CONTACT ISOLATION FOR POSITIVE C-DIFF. WOUND VAC TO LLE, INTACT AND DRAINING APPROPRIATELY. LEFT AKA DRESSING CHANGED PER ORDERS. IV TO LEFT FOREARM HAS SOME REDNESS TO THE AREA, PT DENIES PAIN TO THE AREA AND NO DRAINAGE NOTED. AT BEDSIDE. CALLS APPROPRIATELY, FALL PRECAUTIONS IN PLACE AND NURSING WILL CONTINUE TO MONITOR.
--- NOTE | 2019-10-12 04:09 | NUR ---
WOUND VAC FROM LEFT GROIN WITH SMALL LEAK. REINFORCED WITH TAPE AND REPOSITIONED AND PUMP CONTINUED TO BEEP. CONTACTED PHARMACY DISTRICT MANAGER AND ER NURSE CATIA CAME UP AND CHANGED DRESSING WITHOUT DIFFICULTY. PT TOLERATED WELL AND MACHINE STOPPED BEEPING. NO MORE BEEPING FROM MACHINE. DRESSING C/D/I. WILL CONTINUE TO MONITOR.
[2019-10-12 05:14] LABS: CREATININE 0.7 mg/dL (0.7-1.3); MAGNESIUM 2.1 mg/dL (1.8-2.4); POTASSIUM 3.9 mmol/L (3.5-5.1)
[2019-10-12 05:26] LABS: HEMATOCRIT 31.2 % (42.0-52.0); HEMOGLOBIN 10.2 gm/dL (14.0-18.0); MCH 31.2 pg (26.0-34.0); MCHC 32.7 g/dL (28.0-37.0); MCV 95.5 fL (80.0-100.0); RBC 3.27 mil/uL (4.50-6.00); RDW 16.1 % (10.5-14.5); WBC 10.4 thou/uL (4.0-11.0)
--- NOTE | 2019-10-12 06:06 | NUR ---
assumed care at approx 1900 evening 10/11. pt sitting up at change of shift resting and visiting with spouse at bedside. pt alert and oriented x4, appropriate and cooperative. pt in isolation for c-diff. pt slept off and on in night. bed alarm on and call light in reach. will continue to monitor.
[2019-10-12 09:00] VITALS: BP 117/82
--- NOTE | 2019-10-12 10:01 | NUR ---
pt and gretel agree that is MD are saying he needs to possible go to skilled to cont eyes on wound care with wound vac, they are ok with that. snf list choice provided " want to go where would care goes to"/[facility]. list [facility], [facility], and [facility]. " would like to go [facility] can cont to do the dressing changes there"/[facility]. sent message to [facility] wound nurse with wound care team. will cont following as needed for dc needs. possible dc -.
[2019-10-12 19:55] VITALS: BP 153/89
--- NOTE | 2019-10-12 20:22 | NUR ---
ASSUMED CARE OF PT AT 0715. PT IS A&OX4 AND VITAL SIGNS ARE STABLE. PT DENIES PAIN AND PARTICIPATED IN SCHEDULED THERAPIES. WOUND NURSE CHANGED WOUND VAC DRESSING THIS SHIFT, DRAINING APPROPRIATELY. DRESSING TO LEFT AKA CHANGED PER ORDERS, SITE WELL APPROXIMATED WITH IMAN AND WITHOUT REDNESS, EDEMA, OR DRAINAGE AT THE SITE. PERIPHERAL IV TO LEFT FOREARM INFILTRATED AND REPLACED WITH IV TO RIGHT FOREARM. CONTINUE SPECIAL CONTACT ISOLATION FOR POSITIVE C-DIFF. CALLS APPROPRIATELY FOR ASSITANCE, FALL PRECAUTIONS IN PLACE AND NURSING WILL CONTINUE TO MONITOR.
--- NOTE | 2019-10-12 23:57 | NUR ---
PT ASSESSMENT DONE AND VSS. MEDS GIVEN AND WELL TOLERATED. FALL PRECAUTIONS IN PLACE. SLEEPING WELL. HOURLY ROUNDING. CALL LIGHT IN REACH. WILL CONTINUE TO MONITOR.
--- NOTE | 2019-10-13 09:58 | NUR ---
DISCHARGE PLANNING. NURSING HOME NEEDED AT DISCHARGE. PATIENT REFERRAL FAXED TO [facility]. PATIENT WILL NEED WOUND CARE SERVICES. CALL PLACED TO PETER GILLESPIE INTAKE LIAISON TO NOTIFY. JOSE MIGUEL TO NOTIFY ADMISSIONS TEAM AND NOTIFY CM ONCE PATIENT REFERRAL REVIEW COMPLETED. FOLLOWING.
--- NOTE | 2019-10-13 16:22 | PLAN ---
[facility] [place] [address] REHAB UNIT PLAN OF CARE Name: OLIVIA RICHMOND Room #: 504-1 ADM IN M.R.#: [id number] Admission: 10/05/19 Attend Phys: Mike Garvey MD Discharge: Date of : 54 Report #: [id number] THIS REPORT FOR: //name// CC: Mike Alvarenga DATE OF SERVICE: 10/07/2019 PROGRESS NOTE/OVERALL PLAN OF CARE SUBJECTIVE: The patient was seen earlier. He was in no distress. Last recorded temperature 98, pulse 62, respirations 20, blood pressure 165/83. Sleepy, but responsive. Romano catheter in place. Wound VAC in place to groin. Stump was wrapped and working in therapies with basic transfers, standby assistance to min assist coming to standing. He is max assist for lower body dressing. We are working on basic functional mobility issues and he has actually hopped 60 feet with a front-wheeled walker. ASSESSMENT: 1. Left lower extremity ischemia, status post above-knee amputation, 09/20/2019. 2. Left femoral pseudoaneurysm repair. 3. Medical complexity with generalized debilitation. 4. Acute blood loss anemia, status post transfusions. 5. Acute hypoxic respiratory failure, status post extubation. 6. Clostridium difficile colitis. 7. Protein-calorie malnutrition. 8. Abdominal aortic aneurysm, status post femoral endarterectomy, 08/28/2019. 9. Recent duodenal ulcer with bleed. 10. Hypertension. PLAN: The overall plan of care is based on the preadmission screen, post-admission physician evaluation and information garnered from therapy assessments. 1. Estimated length of stay is probably at least 7-14 days pending progress. 2. Medical prognosis is reasonably good. 3. Anticipated interventions includes the interdisciplinary acute inpatient rehabilitation program. Wound care issues and dressing changes, etc. all defer to the wound care service as discussed with Dr. Kelly yesterday. 4. Anticipated functional outcomes would be for the patient to return back home with his . 5. Discharge destination is as noted above. Goal would be modified independent at a wheelchair, walker level for mobility and ADLs. 6. Expected therapy by discipline includes PT and OT 1-1/2 hours per day each five days a week throughout the duration of the acute inpatient stay. We have asked speech therapy to get involved as well as there was some concern regarding cognitive concerns including by [place] [address] REHAB UNIT PLAN OF CARE Name: OLIVIA RICHMOND Room #: 504-1 ADM IN [facility].#: [id number] Admission: 10/05/19 Attend Phys: Mike Garvey MD Discharge: Date of : 54 Report #: [id number] therapy has been added and at this point, it is PT, OT and speech 1 hour per day each five days a week throughout the duration of the acute inpatient rehabilitation stay, although we may be able to taper some of that speech therapy as times go on in his rehabilitation program. <ELECTRONICALLY SIGNED> By: Mike Garvey MD 10/13/19 1622 [id number] Mike Garvey MD /PMT
--- NOTE | 2019-10-13 16:22 | H ---
[facility] [place] [address] HISTORY AND PHYSICAL Name: OLIVIA RICHMOND Room #: 504-1 ADM IN ..#: [id number] Admission: 10/05/19 Attend Phys: Mike Garvey MD Discharge: Date of : 54 Report #: [id number] THIS REPORT FOR: //name// CC: Mike Alvarenga DATE OF SERVICE: 10/05/2019 HISTORY AND PHYSICAL AND POST-ADMISSION PHYSICIAN EVALUATION HISTORY OF PRESENT ILLNESS: The patient is a 69-year-old white male who has been readmitted for acute in-hospital inpatient rehabilitation. The patient had been on the inpatient rehabilitation unit when he started having active bleeding from his pseudoaneurysm femoral artery site. He was emergently transferred off the floor to ICU and underwent emergent left femoral artery exploration and removal of an infected graft with ligation of femoral arteries. He then ultimately underwent a left above-knee amputation with adductor myodesis due to left lower extremity ischemia. He has had a left groin wound VAC initially changed under anesthesia. He has been followed closely by Vascular Surgery as well as wound care and has been cleared now for readmission for acute in-hospital inpatient rehabilitation. He also is being treated for Clostridium difficile colitis. PAST MEDICAL HISTORY: Please see the prior history and physical. He does have a prior history of hypertension, dyslipidemia, and peripheral vascular disease. He did have a drug-eluting stent, mid LAD in 2014. History of tobacco abuse. He had AAA, inferior mesenteric artery coiling 07/2019, prior stent left femoral artery x 2, stent right femoral artery, and AAA repair noted to be on 08/28/2019. MEDICATIONS: Please see the full medication listing. ALLERGIES: No known drug allergies. SOCIAL HISTORY: Lives at home with his . Six steps in, then can stand 1 level. Did not utilize adaptive devices, was independent with ADLs. does travel. HABITS: Former smoker. No history of alcohol abuse. REVIEW OF SYSTEMS: No specific complaints as far as chest pain, shortness of breath, and abdominal discomfort. PHYSICAL EXAMINATION: GENERAL: He is a pleasant 69-year-old white male in no obvious distress. VITAL SIGNS: Last recorded temperature 97.9, pulse 80, respirations 18, and [facility] [address] [place] [address] HISTORY AND PHYSICAL Name: OLIVIA RICHMOND Room #: 504-1 ADM IN [facility]#: [id number] Admission: 10/05/19 Attend Phys: Mike Garvey MD Discharge: Date of : 54 Report #: [id number] blood pressure 120/80. NEUROLOGIC: Alert, oriented. HEENT: Facies appeared symmetric. CHEST: Sounded clear to auscultation with occasional crackles. ABDOMEN: Bowel sounds positive, nontender. GENITOURINARY AND RECTAL: Deferred. CARDIOVASCULAR: Sounded regular rate and rhythm. EXTREMITIES: He does have right lower extremity functional range of motion. No focal calf swelling. Tone appeared to be intact. Strength is probably a grade 4-/5. Left lower extremity, he has the left above-knee amputation. The Harlan wrap is in place. He has a groin wound VAC in place. Functionally, he has been needing assistance with basic transfers, functional mobility and ADLs. He has been min assist with basic bed mobility. ASSESSMENT: A 69-year-old white male with the following problem list: 1. Left lower extremity ischemia, status post above-knee amputation on 10/01/2019. 2. Medical complexity with generalized debilitation. 3. Left femoral pseudoaneurysm repair. 4. Acute blood loss anemia, status post transfusions. 5. Acute hypoxic respiratory failure, status post extubation. 6. Clostridium difficile colitis. 7. Electrolyte abnormalities. 8. Severe protein-calorie malnutrition. 9. Abdominal aortic aneurysm, status post femoral endarterectomy 08/28/2019. 10. Recent duodenal ulcer with bleed. 11. Hypertension. PLAN: The patient has been admitted for acute in-hospital inpatient rehabilitation. From a postadmission physician evaluation perspective, there are no relevant changes since the preadmission screening. Please see the above review of prior and current medical and functional conditions and comorbidities. Please see the patient's previous and current functional status. As far as risk of complications, he does have the above noted medical comorbidities. Initial plan of care involves the interdisciplinary acute rehab stay. Measurable functional goals would be for him to become modified independent with basic transfers and mobility issues at a walker/wheelchair level. Prognosis is reasonably good with estimated length of stay probably at least 7-14 days. Potential barriers would include his multiple medical comorbidities and decreased functional status. The patient meets diagnostic criteria for an acute in-hospital inpatient rehabilitation stay. He meets the medical necessity criteria. He does have the tolerance for therapies and has appropriate discharge goals back to the home setting. [address] [address] HISTORY AND PHYSICAL Name: OLIVIA RICHMOND Room #: 504-1 [facility] IN ..#: [id number] Admission: 10/05/19 Attend Phys: Mike Garvey MD Discharge: Date of : 54 Report #: [id number] Order entered to hold off on any flexion, extension exercises of that left hip with the wound VAC in place over the groin. We will have the therapist just work on functional mobility activities in physical therapy and maybe some gentle right lower extremity strengthening, but hold off involving the left lower extremity. <ELECTRONICALLY SIGNED> By: Mike Garvey MD 10/13/19 1622 [id number] Mike Garvey MD /nt
--- NOTE | 2019-10-13 17:59 | NUR ---
1100 Up participating in therapy without s/o distress. Denies pain, states that he has phantom pain that is manageable at this point. AM meds given during therapy. Alert, active and cooperative. 1400 Alert and orientated X 4. Cooperative and compliant. Breath sounds clear t/o, bilaterally equal. Reg HR auscultated. Color pink with brisk capillary refill and palpable peripheral pulses. Strong femoral pulse above drg of L upper extremitiy. 20g jelco per R forearm soft and flat without edema, flushes easily with NS. Requiring minimal assistance to ambulate to with walker and woundvac,voids independently. Active bowel sounds over soft, flat abdomen. Drsg changed by PT/OT over LUE, dry and intact. Requesting pain med for pain 4-5, decreased to a 3 with hydrocodone. 1800 Out to dining room in . Remains cooperative and compliant. No s/o distress.
[2019-10-13 20:10] VITALS: BP 159/74
--- NOTE | 2019-10-14 01:38 | NUR ---
WOUND VAC CONTINUOUS TO GROIN WOUND, STUMP SOCK NOW COVERING AKA AMPUTATION, PATIENT UP TO W/C OR TO TOILET WITH GAIT BELT, WALKER, AND STANDBY ASSIST. PATIENT'S HERE AT HS, SHORT DISCUSSION OF STAPLE REMOVING PROCCESS WHEN DOCTORS APPROVE, LET HIM KNOW THAT IT IS AN ESSENTIALLY PAINLESS PROCEDURE. PAIN MED AT HS FOR MODERATE PAIN. ISOLATION CONTINUES FOR RESOLVING CDIFF
[2019-10-14 08:30] VITALS: BP 135/90
--- NOTE | 2019-10-14 13:51 | NUR ---
ASSUMED CARE AT 0700, PT A&O X 4, CAN BE FORGETFUL AT TIMES. VS STABLE, O2 ON RA. NORCO X 1 WITH ADEQUATE RELIEF. STAND BY ASSIST X 1 WITH WALKER, TOLERATED THERAPY. IV TI RFA, RECEIVING ABX ZOSYN TID, ORAL VANC QID. WOUND VAC TO L GROIN IN PLACE, DRESSING DRY. STUMP SHRINKET TO L AKA IN PLACE, IMAN INTACT, NO SWELLING OR DRAINAGE NOTED. CONTACT ISO FOR C;DIFF CONTINUED, LAST BM 10/13/19. BED IN LOWEST POSITION, CALL LIGHT WITHIN REACH, WILL CONTINUE TO MONITOR PER POC.
[2019-10-14 20:30] VITALS: BP 167/89
--- NOTE | 2019-10-15 02:36 | NUR ---
WOUND VAC PATENT FROM LEFT GROIN, CARE TAKEN WITH IT WHEN PATIENT UP TO TOILET WITH GAIT BELT, WALKER, AND CONTACT GUARD ASSIST. PATIENT AND CURIOUS ABOUT RESTARTING BP MEDS, FLEXERIL FOR BACK PAIN, AND WHEN IMAN WILL BE REMOVED. HYDROCODONE AND WHEELCHAIR CUSION EASING PAIN. NEW PERIPHERAL IV SITE FOR Q8 HOUR ANTIBIOTICS.
[2019-10-15 07:30] VITALS: BP 168/77
--- NOTE | 2019-10-15 17:35 | NUR ---
ASSUMED CARE AT 0700, PT A&O X 4, NO ACUTE DISTRESS DURING SHIFT. VS STABLE, BP ELEVATED, MD NOTIFIED AND PT RESTARTED ON LISINOPRIL/HCTZ. O2 ON RA. PT C/O PAIN THAT RESOLVED WITH MUSCLE RELAXER. STAND BY ASSIST X 1 WITH WALKER, CONTINENT OF BOWEL AND BLADDER, BM 10/15/19. C-DIFF PRECAUTIONS CONTINUED. WOUND VAC TO L GROIN IN PLACE AND DRESSING INTACT. STUMP LABORER/KEY MAN TO L AKA IN PLACE. BED IN LOWEST POSITION, CALL LIGHT WITHIN REACH, WILL CONTINUE TO MONITOR PER POC.
[2019-10-15 20:23] VITALS: BP 158/96
--- NOTE | 2019-10-16 01:17 | NUR ---
PT AMBULATING TO BATHROOM WITH STANDBY ASSIST AND IS TOLERATING WELL. DENIES NEED FOR PAIN MEDICATION. STOOL SAMPLE SENT FOR CDIFF. RESTING COMFORTABLY. NO NEEDS VOICED. CALL LIGHT WITHIN REACH. FREQUENT OBSERVATION.
[2019-10-16 09:11] VITALS: BP 117/85
--- NOTE | 2019-10-16 16:12 | NUR ---
ASSUMED CARE AT 0700, A&O X 4, NO ACUTE DISTRESS DURING SHIFT. VSS, O2 ON RA. PT C/O MILD PAIN BUT DID NOT WANT PRN. IV ACCESS TO LFA STATLOCK AND FLUSHES WELL. STAND BY ASSIST X 1 WITH WALKER. WOUND VAC TO L GROIN IN PLACE, DRESSING INTACT. STUMP FURNITURE PAINTER IN PLACE TO L AKA. ON CONTACT ISO FOR C-DIFF, BM X 2 TODAY. STOOL SAMPLE SENT TO LAB ON 10/15/19 NEGATIVE FOR C-DIFF. USES BR TO VOID. BED IN LOWEST POSITION, CALL LIGHT WITHIN REACH, WILL CONTINUE TO MONITOR PER POC.
[2019-10-16 20:07] VITALS: BP 165/87
--- NOTE | 2019-10-16 23:40 | NUR ---
C.diff sample obtained yest 10/15-negative. pt has cont to be on iso prec and getting PO vanco. verified with LAWN MOWER OPERATOR Nancy, who stated to continue current regimen since GI has it in their notes too. and will verify tomorrow with the GI doctors.
--- NOTE | 2019-10-17 04:08 | NUR ---
progress pt progressing with poc. ash to left aka site with intact ash c/d/i no s/s of infection noted. wound vac intact to left groin suctionat 125 cm sx , stump manager forms in place. a/o x4 up with sba 1 gait belt and walker. remains in special contact isolation even though lab test was negative po vanco continues per gi recommendations. possible discharge home weds.
[2019-10-17 06:36] LABS: ABSOLUTE NEUTROPHILS 5.5 thou/uL (1.4-8.2); BASOPHILS 0.9 % (0.0-2.0); EOSINOPHILS 3.5 % (0.0-3.0); HEMATOCRIT 33.2 % (42.0-52.0); HEMOGLOBIN 10.8 gm/dL (14.0-18.0); LYMPHOCYTES 28.8 % (24.0-44.0); MCH 31.2 pg (26.0-34.0); MCHC 32.4 g/dL (28.0-37.0); MCV 96.1 fL (80.0-100.0); MONOCYTES 11.7 % (1.0-8.0); PLATELET COUNT 379 thou/uL (150-400); POLYS 55.1 % (36.0-66.0); RBC 3.45 mil/uL (4.50-6.00); WBC 9.9 thou/uL (4.0-11.0)
[2019-10-17 06:43] LABS: CALCIUM 8.8 mg/dL (8.5-10.1); CREATININE 0.7 mg/dL (0.7-1.3); MAGNESIUM 2.2 mg/dL (1.8-2.4); POTASSIUM 3.9 mmol/L (3.5-5.1)
[2019-10-17 08:00] VITALS: BP 135/94
--- NOTE | 2019-10-17 11:40 | NUR ---
ASSUMED CARE OF PT AT 0715. PT IS A&OX4 AND VITAL SIGNS ARE STABLE. PT REPORTS PAIN IN LLE, MANAGED WITH ORDERED PO PAIN MEDICATIONS. PT IS PARTICIPATING IN THERAPIES AT THIS TIME. HR REGULAR, LUNG SOUNDS CLEAR TO AUSCULTATION IN ALL LOBES BILATERALLY, NO EDEMA NOTED. WOUND VAC TO LEFT GROIN INTACT AND DRAINING APPROPRIATELY. PERIPHERAL IV TO LEFT FOREARM IS PATENT, DRESSING C/D/I, AND SITE WITHOUT REDNESS, EDEMA OR DRAINAGE. PT CALLS APPROPRIATELY, FALL PRECAUTIONS IN PLACE AND NURSING WILL CONTINUE TO MONITOR.
--- NOTE | 2019-10-17 12:32 | NUR ---
team meeting, recommendation: dc to snf on will need wound care and wound vac. cm team [facility].
[2019-10-17 20:10] VITALS: BP 128/84
--- NOTE | 2019-10-18 02:38 | NUR ---
ASSUMED CARE AT APPROX 1900 EVENING 10/17. PT SITTING UP IN RECLINER AT CHANGE OF SHIFT RESTING AND VISITING WITH SPOUSE AT BEDSIDE. PT ALERT AND ORIENTED X4, APPROPRIATE AND COOPERATIVE. WOUND VAC IN PLACE WITH DRESSING TO LEFT GROIN C/D/I. PT TOOK HS MEDS WITH WATER TOLERATING WELL. PT APPEARS TO BE SLEEPING SOUNDLY WITH HOURLY ROUNDING CHECKS. BED ALARM ON AND CALL LIGHT IN REACH. WILL CONTINUE TO MONITOR.
[2019-10-18 08:15] VITALS: BP 120/88
--- NOTE | 2019-10-18 13:48 | NUR ---
ASSUMED CARE OF PT AT 0715. PT IS A&OX4 AND VITAL SIGNS ARE STABLE. PT REPORTS PAIN 4/10 AT REST AND DOES NOT REPORT MUCH PAIN RELIEF WITH ORDERED PO MEDICATIONS AND REQUESTS ADDITIONAL MEDS BETWEEN AVAILABLE DOSES. PROVIDER NOTIFIED OF PAIN CONCERNS AND NEW ORDERS ADDED FOR ADDITIONAL PAIN MEDICATIONS. IV NO LONGER IN USE AND PROVIDER OK WITH REMOVAL. WOUND VAC TO LEFT GROIN INTACT AND DRAINING APPROPRIATELY. DRESSING TO LEFT AKA CHANGED PER ORDERS, SITE WELL APPROXIMATED WITH IMAN, NO NOTED DRAINAGE, AREA WITHOUT REDNESS, WARMTH, OR EDEMA. PT ABLE TO TAKE MEDICATIONS WHOLE WITH THIN LIQUIDS AT THIS TIME. CALLS APPROPRIATELY FOR ASSISTANCE. FALL PRECAUTIONS IN PLACE AND NURSING WILL CONTINUE TO MONITOR.
--- NOTE | 2019-10-18 14:51 | NUR ---
cm notified by destiny with wound care, that wound care nurse angel at [facility] knows tx and supplies will be ordered prior to prashant wilson on 10/20/2019
[2019-10-18 20:09] VITALS: BP 126/84
--- NOTE | 2019-10-19 01:08 | NUR ---
PT ALERT AND ORIENTED X 4. LEFT AKA DRESSING C/D/I. WOUND VAC TO LEFT GROIN C/D/I WITH SMALL AMT SEROSANGUINOUS DRAINAGE. PT C/O PAIN IN LEFT LEG. HYDROCODONE GIVEN AT HS. INCISION LLQ ABD C/D/I WITH IMAN. BED ALARM ON FOR SAFETY. PT APPEARS TO BE SLEEPING ON HOURLY ROUNDS.
[2019-10-19 09:00] VITALS: BP 101/75
--- NOTE | 2019-10-19 15:21 | NUR ---
ASSUMED CARE AT 0700, PT A&O X 4, NO ACUTE DISTRESS NOTED. VSS, O2 ON RA. PT C/O PAIN RELIEVED WITH PRN NORCO. STAND BY ASSIST X 1 WITH WALKER, TOLERATES THERAPY. NO IV ACCESS. WOUND VAC TO L GROIN IN PLACE, DRESSING CHANGED BY NURSE. IMAN TO LLQ AND L AKA INTACT, NO REDNESS OR SWELLING TO AREA. STUMP OD GRINDER OPERATOR ON L AKA. CONTINENT OF BOWEL AND BLADDER, BM X 2 TODAY. PT TO D/C TO SNF TOMORROW. BED IN LOWEST POSITION, CALL LIGHT WITHIN REACH, WILL CONTINUE TO MONITOR PER POC.
[2019-10-19 22:59] VITALS: BP 102/74
--- NOTE | 2019-10-20 02:03 | NUR ---
ASSESSED AT START OF SHIFT. A&OX4. ISOLATION MAINTAINED FOR C-DIFF. PT HAD 1BM THIS SHIFT. UP WITH ASSISTX1 TO THE TOILET AND ASSISTANCE WITH WOUND VAC. DRESSING INTACT LFT AKA. PAIN MED GIVENX1 THIS SHIFT. PT LOOKING FORWARD TO D/C TOMORROW. NO IV ACCESS. FALL PREC IN PLACE AND CALL LIGHT IN REACH WILL CONT WITH POC TILL EOS.
[2019-10-20 08:00] VITALS: BP 115/82
[2019-10-20 08:56] VITALS: BP 115/82
[2019-10-20] MEDS ORDERED: CIPRO250 M1 PO ×2 (12:36→12:42)
[2019-10-20] MEDS ORDERED: CLOPIDOGREL75 MG PO (12:37)
[2019-10-20] MEDS ORDERED: BENAZEPRIL HCL20 MG PO (12:38)
[2019-10-20] MEDS ORDERED: ASPIR 8181 MG PO (12:38)
[2019-10-20] MEDS ORDERED: HYDROCHLOROTH12.5 M1 PO (12:39)
[2019-10-20] MEDS ORDERED: CYCLOBENZAPRINE5 MG PO (12:40)
[2019-10-20] MEDS ORDERED: HYDROCODON-ACE1 EAC7 PO (12:40)
[2019-10-20] MEDS ORDERED: NORCO 7.5-3251 EACH PO (12:41)
[2019-10-20] MEDS ORDERED: FIRVANQ50 MG/1 ML PO (12:42)
--- NOTE | 2019-10-20 14:14 | NUR ---
ASSUMED CARE OF PT AT 0715. PT IS A&OX4 AND VITAL SIGNS ARE STABLE. ORDERS FOR DISCHARGE TODAY TO SNF. DISCHARGE MEDICATIONS COMPLETED AND REVIEWED WITH PATIENT AND , SCRIPTS FOR NORCO AND FLEXERIL SIGNED AND PLACED IN DISCHARGE PACKET. REPORT CALLED TO NESS AT FACILITY AT 1345. DRESSINGS CHANGED PER ORDERS. SPECIAL CONTACT ISOLATION CONTINUED PER ORDERS. AT BEDSIDE AT THIS TIME. PLANS FOR TRANSPORTATION TO FACILITY AT 0600. PT REPORTS PAIN TO LLE, MANAGED WITH PO MEDICATIONS. FALL PRECAUTIONS IN PLACE. NURSING WILL CONTINUE TO MONITOR.
== END 2019-10-20 17:51 | DRG 302 ==
PROVIDERS: Hospitalist; Internal Medicine; Nurse Practitioner; Specialist; ADMIT Physical Medicine & Rehabilitation
DX: I99.8 Other disorder of circulatory system (principal); J96.01 Acute respiratory failure with hypoxia; E43 Unspecified severe protein-calorie malnutrition; K26.4 Chronic or unspecified duodenal ulcer with hemorrhage; D62 Acute posthemorrhagic anemia; A04.72 Enterocolitis due to Clostridium difficile, not specified as recurrent; N17.9 Acute kidney failure, unspecified; R78.81 Bacteremia; I72.4 Aneurysm of artery of lower extremity; R53.81 Other malaise; Z68.25 Body mass index [BMI] 25.0-25.9, adult; I71.4 Abdominal aortic aneurysm, without rupture; I10 Essential (primary) hypertension; E78.5 Hyperlipidemia, unspecified; I73.9 Peripheral vascular disease, unspecified; F32.9 Major depressive disorder, single episode, unspecified; E87.6 Hypokalemia; E83.39 Other disorders of phosphorus metabolism; N18.9 Chronic kidney disease, unspecified; E83.51 Hypocalcemia; Z89.612 Acquired absence of left leg above knee; Z95.5 Presence of coronary angioplasty implant and graft
CPT/HCPCS: 10112

== ENCOUNTER → 2019-11-22 | Outpatient (CLI) | payer OTHER ==
[~2019-11-22] MED LIST changes: +BENAZEPRIL HCL20 MG PO; +CIPRO250 M1 PO; +CLOPIDOGREL75 MG PO; +CYCLOBENZAPRINE5 MG PO; +HYDROCHLOROTH12.5 M1 PO; +NORCO 7.5-3251 EACH PO; +TOBRAMYCIN60 MG/50 M IV; +ZOSYN 4.54.5 GM/101 IV
== END ==
LOC: HYPER 09:43
DX: T87.81 Dehiscence of amputation stump (principal); L97.122 Non-pressure chronic ulcer of left thigh with fat layer exposed; L76.32 Postprocedural hematoma of skin and subcutaneous tissue following other procedure; S31.104A Unspecified open wound of abdominal wall, left lower quadrant without penetration into peritoneal cavity, initial encounter; S81.002A Unspecified open wound, left knee, initial encounter; I73.89 Other specified peripheral vascular diseases; I25.10 Atherosclerotic heart disease of native coronary artery without angina pectoris; E78.00 Pure hypercholesterolemia, unspecified; I10 Essential (primary) hypertension; E03.9 Hypothyroidism, unspecified; Z87.891 Personal history of nicotine dependence; Z79.82 Long term (current) use of aspirin; Y83.5 Amputation of limb(s) as the cause of abnormal reaction of the patient, or of later complication, without mention of misadventure at the time of the procedure; X58.XXXA Exposure to other specified factors, initial encounter; Y93.89 Activity, other specified; Y92.89 Other specified places as the place of occurrence of the external cause; Y99.8 Other external cause status

== ENCOUNTER → 2019-12-06 | Outpatient (CLI) | payer OTHER | LOC: HYPER 08:54 | DX: T81.41XD Infection following a procedure, superficial incisional surgical site, subsequent encounter (principal); L97.122 Non-pressure chronic ulcer of left thigh with fat layer exposed; I73.89 Other specified peripheral vascular diseases; L76.32 Postprocedural hematoma of skin and subcutaneous tissue following other procedure; S31.104D Unspecified open wound of abdominal wall, left lower quadrant without penetration into peritoneal cavity, subsequent encounter; I25.10 Atherosclerotic heart disease of native coronary artery without angina pectoris; E78.00 Pure hypercholesterolemia, unspecified; I10 Essential (primary) hypertension; E03.9 Hypothyroidism, unspecified; F32.9 Major depressive disorder, single episode, unspecified; Z87.891 Personal history of nicotine dependence; Z79.01 Long term (current) use of anticoagulants; Z79.82 Long term (current) use of aspirin; Z89.612 Acquired absence of left leg above knee; X58.XXXD Exposure to other specified factors, subsequent encounter; Y83.8 Other surgical procedures as the cause of abnormal reaction of the patient, or of later complication, without mention of misadventure at the time of the procedure ==

== ENCOUNTER → 2019-12-11 | Outpatient (CLI) | payer OTHER | LOC: SJCVC 09:57 | DX: R00.1 Bradycardia, unspecified (principal); I25.10 Atherosclerotic heart disease of native coronary artery without angina pectoris; I10 Essential (primary) hypertension; I71.4 Abdominal aortic aneurysm, without rupture; E78.5 Hyperlipidemia, unspecified; I73.9 Peripheral vascular disease, unspecified; Z87.891 Personal history of nicotine dependence ==

== ENCOUNTER → 2019-12-27 | Outpatient (CLI) | payer OTHER | LOC: HYPER 15:34 | DX: T81.49XD Infection following a procedure, other surgical site, subsequent encounter (principal); L97.122 Non-pressure chronic ulcer of left thigh with fat layer exposed; L76.32 Postprocedural hematoma of skin and subcutaneous tissue following other procedure; I73.89 Other specified peripheral vascular diseases; I25.10 Atherosclerotic heart disease of native coronary artery without angina pectoris; I10 Essential (primary) hypertension; E78.00 Pure hypercholesterolemia, unspecified; E03.9 Hypothyroidism, unspecified; K21.9 Gastro-esophageal reflux disease without esophagitis; F32.9 Major depressive disorder, single episode, unspecified; Z89.612 Acquired absence of left leg above knee; Z79.01 Long term (current) use of anticoagulants; Z79.82 Long term (current) use of aspirin; Z87.891 Personal history of nicotine dependence; Y83.8 Other surgical procedures as the cause of abnormal reaction of the patient, or of later complication, without mention of misadventure at the time of the procedure ==

== ENCOUNTER → 2020-06-13 | Outpatient (CLI) | payer OTHER | LOC: SJCVC 12:18 | PROVIDERS: ATTEND Internal Medicine | DX: I25.10 Atherosclerotic heart disease of native coronary artery without angina pectoris (principal); I10 Essential (primary) hypertension; E78.5 Hyperlipidemia, unspecified; I73.9 Peripheral vascular disease, unspecified; I71.4 Abdominal aortic aneurysm, without rupture; F17.210 Nicotine dependence, cigarettes, uncomplicated; Z79.899 Other long term (current) drug therapy ==

== ENCOUNTER → 2020-07-09 | Outpatient (CLI) | payer OTHER | LOC: SJCVCIMAG 12:00 | PROVIDERS: ATTEND Internal Medicine | DX: E04.2 Nontoxic multinodular goiter (principal) ==

== ENCOUNTER → 2020-12-11 | Outpatient (CLI) | payer OTHER | LOC: SJCVC 10:30 | PROVIDERS: ATTEND Internal Medicine | DX: R00.1 Bradycardia, unspecified (principal); E78.00 Pure hypercholesterolemia, unspecified; I25.10 Atherosclerotic heart disease of native coronary artery without angina pectoris; I10 Essential (primary) hypertension; E78.5 Hyperlipidemia, unspecified; I73.9 Peripheral vascular disease, unspecified; I71.4 Abdominal aortic aneurysm, without rupture; I65.23 Occlusion and stenosis of bilateral carotid arteries; F17.210 Nicotine dependence, cigarettes, uncomplicated; Z79.82 Long term (current) use of aspirin; Z79.899 Other long term (current) drug therapy ==

== ENCOUNTER → 2021-01-02 | Outpatient (CLI) | payer OTHER | LOC: SJCVC 10:52 | PROVIDERS: ATTEND Internal Medicine | DX: E78.00 Pure hypercholesterolemia, unspecified (principal); I71.4 Abdominal aortic aneurysm, without rupture; I25.10 Atherosclerotic heart disease of native coronary artery without angina pectoris; I10 Essential (primary) hypertension; E78.5 Hyperlipidemia, unspecified; I73.9 Peripheral vascular disease, unspecified; A41.9 Sepsis, unspecified organism; Z88.8 Allergy status to other drugs, medicaments and biological substances; Z87.891 Personal history of nicotine dependence; Z95.828 Presence of other vascular implants and grafts; Z72.89 Other problems related to lifestyle; Z79.899 Other long term (current) drug therapy ==

== ENCOUNTER → 2021-01-09 | Outpatient (CLI) | payer OTHER | LOC: CAT 13:23 | PROVIDERS: ATTEND Nuclear Medicine Nuclear Cardiology | DX: I71.4 Abdominal aortic aneurysm, without rupture (principal); Z95.828 Presence of other vascular implants and grafts ==

== ENCOUNTER → 2021-04-16 | Outpatient (CLI) | payer OTHER | LOC: SJCVC 13:09 | PROVIDERS: ATTEND Internal Medicine | DX: R94.31 Abnormal electrocardiogram [ECG] [EKG] (principal); R00.1 Bradycardia, unspecified; I25.10 Atherosclerotic heart disease of native coronary artery without angina pectoris; I10 Essential (primary) hypertension; E78.5 Hyperlipidemia, unspecified; I73.9 Peripheral vascular disease, unspecified; F17.210 Nicotine dependence, cigarettes, uncomplicated; I71.4 Abdominal aortic aneurysm, without rupture; I65.23 Occlusion and stenosis of bilateral carotid arteries; Z79.899 Other long term (current) drug therapy; Z79.82 Long term (current) use of aspirin; Z88.1 Allergy status to other antibiotic agents; Z87.891 Personal history of nicotine dependence ==

== ENCOUNTER → 2021-06-02 | Outpatient (CLI) | payer OTHER | LOC: SJCVCIMAG 07:36 | PROVIDERS: ATTEND Internal Medicine | DX: I25.10 Atherosclerotic heart disease of native coronary artery without angina pectoris (principal); I10 Essential (primary) hypertension; E78.5 Hyperlipidemia, unspecified; I73.9 Peripheral vascular disease, unspecified; F17.210 Nicotine dependence, cigarettes, uncomplicated; I71.4 Abdominal aortic aneurysm, without rupture; I65.23 Occlusion and stenosis of bilateral carotid arteries; Z79.82 Long term (current) use of aspirin; Z79.899 Other long term (current) drug therapy; Z88.1 Allergy status to other antibiotic agents ==